=== PATIENT | male | born 1965 | race African-American/Black ===

== ENCOUNTER 2019-02-17 13:58 | Inpatient (IN) | payer OTHER ==
[2019-02-17 15:51] LABS: Protime INR 1.14
[2019-02-17 16:13] LABS: Potassium 4.1 mmol/L (3.5-5.1)
[2019-02-17 16:15] LABS: Absolute Lymphocytes (CBC) 1.2 K/uL (0.7-4.9); Absolute Neutrophil 8.4 K/uL (1.8-8.0); Basophils % 0.6 % (0-1.3); Eosinophils % 0.5 % (0-4.4); Lymphocytes % 11.6 % (15.3-44.8); MPV 9.6 fL (7.6-11.3); Monocytes % 9.3 % (3.3-12.3); RBC Red Blood Cell Count 2.57 M/uL (4.33-5.43)
[2019-02-17 16:17] LABS: Hematocrit 17.4 % (39.6-49.0)
[2019-02-17 16:22] LABS: Anisocytosis 3+; Blood Morphology Comment NOTED (NOT SEEN); Platelet Estimate ADEQ; Urine White Blood Cell Casts OK
[2019-02-17 16:23] LABS: Hypochromasia 2+; Polychromasia 2+; Rouleau NOTED
[2019-02-17] MEDS: PANTOPRAZOLE INJ 80 MG in NA CHLORIDE 0.9% 250 ML IV SCH (17:00)
[2019-02-17] MEDS ORDERED: PANTOPRAZOLE 40 MG INJ ONE (17:04)
[2019-02-17] MEDS ORDERED: NA CHLORIDE 0.9% 500 ML ONE (17:04)
--- NOTE | 2019-02-17 17:24 | P.HP ---
Certification for Inpatient Patient admitted to: Inpatient With expected LOS: >2 Midnights Patient will require the following post-hospital care: None Practitioner: I am a practitioner with admitting privileges, knowledge of patient current condition, hospital course, and medical plan of care. Services: Services provided to patient in accordance with Admission requirements found in Title 42 Section 412.3 of the Code of Federal Regulations Patient History Date of Service: 02/17/19 Primary Care Provider: Dr Alamo Reason for admission: GI bleed History of Present Illness: 53 y/o M with pmhx of HTN, Diabetes and obesity who presented to the ED with c/ o generalized Weakness for past 2 weeks. Pt states that he has also noticed dark tarry stool for past 1 week as well. Was recently seen by PCP who ordered stool occult. Stool occult is + and thus pt was asked to come to the ER for further testing and treatment. Pt denies CP, SOB, Diarrhea, N/V and abd pain. Does have h/o constipation, no Hemorrhoids however. Denies Smoking, alcohol use or drugs. No family h/o CA. No other associated symptoms and no other complains to offer In the ER was found to have hgb of 5.4 and olivia tarry stool and was thus referred over admission for further care. Hemodynamically stable. Allergies No Known Allergies Allergy (Unverified 04/19/17 18:08) Home medications list reviewed: Yes - Past Medical/Surgical History Has patient received pneumonia vaccine in the past: Yes Diabetic: Yes -: HTN -: Diabetes -: None - Family History Family History: Reviewed- Non-Contributory - Social History Smoking Status: Never smoker Counseled patient to stop smoking for: more than 10 minutes Smoking therapy provided: Yes Patient receptive to therapy: Yes Alcohol use: No CD- Drugs: No Caffeine use: No Place of Residence: Home Review of Systems 10-point ROS is otherwise unremarkable Physical Examination - Physical Exam General: Alert, In no apparent distress, Oriented x3, Obese HEENT: Atraumatic, PERRLA, Mucous membr. moist/pink, EOMI, Sclerae nonicteric Neck: Supple, 2+ carotid pulse no bruit, No LAD, Without JVD or thyroid abnormality Respiratory: Clear to auscultation bilaterally, Normal air movement Cardiovascular: Regular rate/rhythm, Normal S1 S2 Gastrointestinal: Normal bowel sounds, No tenderness Musculoskeletal: No tenderness Integumentary: No rashes Neurological: Normal gait, Normal speech, Normal strength at 5/5 x4 extr, Normal tone, Normal affect Lymphatics: No axilla or inguinal lymphadenopathy - Studies Laboratory Data (last 24 hrs) 02/17/19 16:04: WBC 10.7, Hgb 5.4 L*, Hct 17.4 L*, Plt Count 261 02/17/19 15:35: PT 13.4 H, INR 1.14 02/17/19 15:35: Sodium 140, Potassium 4.1, BUN 15, Creatinine 1.54 H, Glucose 119 H Assessment and Plan - Problems (Diagnosis) (1) GI bleeding Current Visit: Yes Status: Acute Plan: Acute blood loss anemia, most likely 2.2 to Upper GI bleeding with Melanotic stool and stool occult + -Hgb in ER 5.4 -Will transfuse 2 units PRBC -IV protonix ggt and IV fluids. -GI consulted. Awaiting Reccs -NPO for possible procedure -Will monitor in ICU closely and repeat H&H q6h Qualifiers: GI bleed type/associated pathology: melena Qualified Code(s): K92.1 - Melena (2) Diabetes Current Visit: Yes Status: Chronic Plan: ISS and Accu Check -BS on admission 274 Qualifiers: Diabetes mellitus type: type 2 Diabetes mellitus custodial insulin use: without custodial use Diabetes mellitus complication status: without complication Qualified Code(s): E11.9 - Type 2 diabetes mellitus without complications (3) HTN (hypertension) Current Visit: Yes Status: Chronic Plan: Currently Normotensive. -Will monitor closely -PRN labetolol and Hydralazine -Restart home medication once No longer NPO Qualifiers: Hypertension type: essential hypertension Qualified Code(s): I10 - Essential (primary) hypertension (4) Obesity Current Visit: Yes Status: Acute Plan: Morbid Obesity Qualifiers: Obesity type: due to excess calories Obesity classification: adult class 3 (BMI >= 40) Serious obesity comorbidity presence: with serious comorbidity Body mass index: BMI 45.0-49.9 Qualified Code(s): E66.01 - Morbid (severe) obesity due to excess calories; Z68.42 - Body mass index (BMI) 45.0-49.9, adult - Plan Admit patient To ICU for closely monitoring, HH q6h, GI consultation, Protonix ggt and IV fluids CC time spent 45 mins Discharge Plan: Home Plan to discharge in: Greater than 2 days - Advance Directives Does patient have a Living Will: No Does patient have a Durable POA for Healthcare: No - Code Status/Comfort Care Code Status Assessed: Yes Critical Care: Yes Time Spent Managing Pts Care (In Minutes): 45
[2019-02-17] MEDS ORDERED: D50W 25 GM/50 ML SYRINGE IV PRN (17:29)
[2019-02-17] MEDS ORDERED: GLUCAGON 1 MG/VIAL IM PRN (17:29)
--- NOTE | 2019-02-17 17:44 | ER ---
Nurse's Notes [facility] Name: Octavio Lay Age: 53 yrs Sex: Male : 1965 Arrival Date: 02/17/2019 Time: 14:01 Bed 13 Private MD: Diagnosis: GI Bleeding, Anemia, Obese Presentation: 02/17 14:05 Initial Sepsis Screen: Does the patient meet any 2 criteria? No. Patient's initial rb1 sepsis screen is negative. Does the patient have a suspected source of infection? No. Patient's initial sepsis screen is negative. 14:09 Presenting complaint: Patient states: Sent by PCP for HGB 4.9, HCT 17.2. Pt reports ss feeling fatigued x 1-2 weeks, and dark stool x 1 week. Transition of care: patient was not received from another setting of care. Onset of symptoms was February 17, 2019. Risk Assessment: Do you want to hurt yourself or someone else? Patient reports no desire to harm self or others. Care prior to arrival: None. 14:09 Method Of Arrival: Ambulatory ss 14:09 Acuity: CRUZITO 3 ss Historical: - Allergies: 14:13 Bactrim DS; kidney fxn; ss - Home Meds: 14:13 aspirin 81 mg Oral chew 1 tab once daily [Active]; irbesartan-hydrochlorothiazide ss 300-12.5 mg oral tab [Active]; saxagliptin-metformin oral oral once daily [Active]; carvedilol 25 mg oral tab 1 tab 2 times per day [Active]; atorvastatin 20 mg oral tab once daily [Active]; Omeprazole Oral [Active]; - PMHx: 14:13 Diabetes - NIDDM; Hypertension; ss - PSHx: 14:13 ankle sx; ss - Immunization history:: Adult Immunizations up to date. - Social history:: Smoking status: Patient/guardian denies using tobacco. - Ebola Screening: : No symptoms or risks identified at this time. Screenin:05 Abuse screen: Denies threats or abuse. Nutritional screening: No deficits noted. rb1 Tuberculosis screening: No symptoms or risk factors identified. Fall Risk None identified. Assessment: 14:05 General: Appears in no apparent distress. comfortable, obese, Behavior is calm, rb1 cooperative, Reports fatigue for Denies fever, feeling ill. Pain: Denies pain. Neuro: Level of Consciousness is awake, alert, obeys commands, Oriented to person, place, time, situation. Cardiovascular: Capillary refill < 3 seconds is brisk in bilateral fingers. Respiratory: Airway is patent Respiratory effort is even, unlabored, Respiratory pattern is regular, symmetrical. GI: Reports black stools. : No signs and/or symptoms were reported regarding the genitourinary system. Derm: Skin is dry, Skin is normal, Skin temperature is warm. 15:00 Reassessment: Patient appears in no apparent distress at this time. No changes from rb1 previously documented assessment. Family at bedside. 16:00 Reassessment: Patient appears in no apparent distress at this time. Patient and/or rb1 family updated on plan of care and expected duration. Pain level reassessed. Patient is alert, oriented x 3, equal unlabored respirations, skin warm/dry/pink. Patient denies pain at this time. 16:44 Reassessment: Called CT to inform them that the pt. finished his contrast. rb1 17:00 Reassessment: Patient appears in no apparent distress at this time. No changes from rb1 previously documented assessment. 18:00 Reassessment: Patient appears in no apparent distress at this time. Patient and/or rb1 family updated on plan of care and expected duration. Pain level reassessed. Patient is alert, oriented x 3, equal unlabored respirations, skin warm/dry/pink. Patient denies pain at this time. 18:03 Reassessment: Called report to SAUD Corona. Information from the [facility] was given. All rb1 questions asked and answered. 18:15 Reassessment: Protonix IV Drip for 0300 was taken to ICU with the pt. SAUD Corona rb1 received the medication. Vital Signs: 14:11 BP 126 / 108; Pulse 97; Resp 18; Temp 97.9; Pulse Ox 100% on R/A; Pain 0/10; ss 15:00 BP 117 / 63; Pulse 93; Resp 19; Pulse Ox 100% on R/A; Pain 0/10; rb1 16:00 BP 129 / 72; Pulse 90; Resp 18; Pulse Ox 100% on R/A; rb1 17:00 BP 132 / 83; Pulse 93; Resp 17; Pulse Ox 100% ; Pain 0/10; rb1 17:54 BP 119 / 97; Pulse 92; Resp 20; Pulse Ox 100% on R/A; Pain 0/10; rb1 ED Course: 14:01 Patient arrived in ED. as 14:05 Patient has correct armband on for positive identification. Bed in low position. Call rb1 light in reach. Side rails up X 1. Pulse ox on. NIBP on. 14:07 Ignacio Ramirez MD is Attending Physician. kdr 14:11 Triage completed. ss 14:13 Arm band placed on. ss 14:44 Rocio Turner, SAUD is Primary Nurse. rb1 15:10 Missed attempt(s): 20 gauge in right forearm. rb1 15:35 Initial lab(s) drawn, by fl, sent to lab. T\T\S collected, blood band applied to patient. ph Inserted saline lock: 20 gauge in left wrist, using aseptic technique. Blood collected. 16:41 Oral contrast given. jg6 16:45 Oral contrast reported to be complete. vm2 17:42 Lynda Gallardo MD is Hospitalizing Provider. kdr 18:01 Inserted saline lock: 22 gauge in right hand, using aseptic technique. ph 18:15 No provider procedures requiring assistance completed. Patient admitted, IV remains in rb1 place. 18:34 Radiology exam delayed due to attempted to get patient for CT exam and pt was taken vm2 upstairs to ICU. Administered Medications: 16:55 Drug: ProTONIX 40 mg Route: IVP; Site: left wrist; rb1 17:10 Follow up: Response: No adverse reaction rb1 16:55 Drug: NS 0.9% 500 ml Route: IV; Rate: bolus; Site: left wrist; rb1 17:53 Follow up: IV Status: Completed infusion rb1 17:53 Drug: ProTONIX 8 mg/hr Route: IV; Rate: 25 ml/hr; Site: left wrist; rb1 18:15 Follow up: Response: No adverse reaction; IV Status: Infusion continued upon admission rb1 Outcome: 17:43 Decision to Hospitalize by Provider. kdr 18:15 Patient left the ED. rb1 18:15 Admitted to ICU accompanied by nurse, accompanied by tech, family with patient, via rb1 stretcher, room 7, on monitor, with chart, Report called to SAUD Corona 18:15 Condition: stable 18:15 Instructed on the need for admit. Signatures: Ignacio Ramirez MD MD kdr Laura Cortez Shelby, RN RN Evie Vargas RN RN Rocio Turner RN RN rb1 Coby Winn 2 Carina Mancera jg6 Corrections: (The following items were deleted from the chart) 17:02 17:01 Oral contrast reported to be complete. vm2 vm2 18:34 18:27 Patient moved to [place] via wheelchair. vm2 vm2 18:45 18:43 Patient left the ED. rb1 rb1
--- NOTE | 2019-02-17 17:44 | EDPHYS ---
Physician Documentation [facility] Name: Octavio Lay Age: 53 yrs Sex: Male : 1965 Arrival Date: 02/17/2019 Time: 14:01 Bed 13 Private MD: ED Physician Ignacio Ramirez HPI: 02/17 16:54 This 53 yrs old Black Male presents to ER via Ambulatory with complaints of Abnormal kdr Lab Results. 16:54 The p[at. kdr Historical: - Allergies: 14:13 Bactrim DS; kidney fxn; ss - Home Meds: 14:13 aspirin 81 mg Oral chew 1 tab once daily [Active]; irbesartan-hydrochlorothiazide ss 300-12.5 mg oral tab [Active]; saxagliptin-metformin oral oral once daily [Active]; carvedilol 25 mg oral tab 1 tab 2 times per day [Active]; atorvastatin 20 mg oral tab once daily [Active]; Omeprazole Oral [Active]; - PMHx: 14:13 Diabetes - NIDDM; Hypertension; ss - PSHx: 14:13 ankle sx; ss - Immunization history:: Adult Immunizations up to date. - Social history:: Smoking status: Patient/guardian denies using tobacco. - Ebola Screening: : No symptoms or risks identified at this time. ROS: 17:39 Constitutional: Negative for fever, chills, and weight loss, Eyes: Negative for injury, kdr pain, redness, and discharge, Neck: Negative for injury, pain, and swelling, Cardiovascular: Negative for chest pain, palpitations, and edema, Respiratory: Negative for shortness of breath, cough, wheezing, and pleuritic chest pain, Abdomen/GI: Negative for abdominal pain, nausea, vomiting, diarrhea, and constipation, Back: Negative for injury and pain, : Negative for injury, bleeding, discharge, and swelling, MS/Extremity: Negative for injury and deformity, Skin: Negative for injury, rash, and discoloration, Neuro: Negative for headache, weakness, numbness, tingling, and seizure activity. Psych: Negative for depression, anxiety, suicide ideation, homicidal ideation, and hallucinations, Allergy/Immunology: Negative for hives, rash, and allergies, Endocrine: Negative for neck swelling, polydipsia, polyuria, polyphagia, and marked weight changes, Hematologic/Lymphatic: Negative for swollen nodes, abnormal bleeding, and unusual bruising. 17:39 Abdomen/GI: Positive for nausea, constipation, black/tarry stool, Negative for abdominal pain, nausea and vomiting, nausea, vomiting, and diarrhea, nausea, vomiting, diarrhea, abdominal cramps, abdominal distension, anorexia, dysphagia, rectal pain, rectal bleeding, bowel incontinence. Exam: 17:39 Constitutional: This is a well developed, well nourished patient who is awake, alert, kdr and in no acute distress. Head/Face: Normocephalic, atraumatic. Eyes: Pupils equal round and reactive to light, extra-ocular motions intact. Lids and lashes normal. Conjunctiva and sclera are non-icteric and not injected. Cornea within normal limits. Periorbital areas with no swelling, redness, or edema. Neck: Trachea midline, no thyromegaly or masses palpated, and no cervical lymphadenopathy. Supple, full range of motion without nuchal rigidity, or vertebral point tenderness. No Meningismus. Chest/axilla: Normal chest wall appearance and motion. Nontender with no deformity. No lesions are appreciated. Cardiovascular: Regular rate and rhythm with a normal S1 and S2. No gallops, murmurs, or rubs. Normal PMI, no JVD. No pulse deficits. Respiratory: Lungs have equal breath sounds bilaterally, clear to auscultation and percussion. No rales, rhonchi or wheezes noted. No increased work of breathing, no retractions or nasal flaring. Back: No spinal tenderness. No costovertebral tenderness. Full range of motion. Skin: Warm, dry with normal turgor. Normal color with no rashes, no lesions, and no evidence of cellulitis. MS/ Extremity: Pulses equal, no cyanosis. Neurovascular intact. Full, normal range of motion. Neuro: Awake and alert, GCS 15, oriented to person, place, time, and situation. Cranial nerves II-XII grossly intact. Motor strength 5/5 in all extremities. Sensory grossly intact. Cerebellar exam normal. Normal gait. Psych: Awake, alert, with orientation to person, place and time. Behavior, mood, and affect are within normal limits. 17:39 Abdomen/GI: Inspection: obese Bowel sounds: active, Palpation: soft, nontender, rebound tenderness, is not appreciated, voluntary guarding, is not appreciated, involuntary guarding, is not appreciated. Vital Signs: 14:11 BP 126 / 108; Pulse 97; Resp 18; Temp 97.9; Pulse Ox 100% on R/A; Pain 0/10; ss 15:00 BP 117 / 63; Pulse 93; Resp 19; Pulse Ox 100% on R/A; Pain 0/10; rb1 16:00 BP 129 / 72; Pulse 90; Resp 18; Pulse Ox 100% on R/A; rb1 17:00 BP 132 / 83; Pulse 93; Resp 17; Pulse Ox 100% ; Pain 0/10; rb1 17:54 BP 119 / 97; Pulse 92; Resp 20; Pulse Ox 100% on R/A; Pain 0/10; rb1 MDM: 16:31 Physician consultation: Cristino Pepper MD was called at 16:30, was contacted at 16:30, [facility] regarding consult, patient's condition, and will see patient in inpatient room. 17:39 Data reviewed: vital signs, nurses notes, lab test result(s), radiologic studies. kdr Counseling: I had a detailed discussion with the patient and/or guardian regarding: the historical points, exam findings, and any diagnostic results supporting the discharge/admit diagnosis, lab results, radiology results, the need for further work-up and treatment in the hospital. 17:43 Patient medically screened. [facility] 02/17 14:23 Order name: CBC with Diff [facility] 02/17 14:23 Order name: Chem 7; Complete Time: 16:26 [facility] 02/17 14:23 Order name: PT-INR; Complete Time: 16:26 [facility] 02/17 14:23 Order name: Type And Screen; Complete Time: 16:34 [facility] 02/17 14:23 Order name: CBC with Automated Diff; Complete Time: 16:26 [facility] 02/17 16:17 Order name: CBC Smear Scan; Complete Time: 16:26 [facility] 02/17 16:30 Order name: CT Abd/Pelvis - W/Contrast [facility] 02/17 16:32 Order name: ABO/RH no charge; Complete Time: 16:34 [facility] 02/17 17:02 Order name: CONS Physician Consult [facility] 02/17 17:02 Order name: NPO EDMS Administered Medications: 16:55 Drug: ProTONIX 40 mg Route: IVP; Site: left wrist; rb1 17:10 Follow up: Response: No adverse reaction rb1 16:55 Drug: NS 0.9% 500 ml Route: IV; Rate: bolus; Site: left wrist; rb1 17:53 Follow up: IV Status: Completed infusion rb1 17:53 Drug: ProTONIX 8 mg/hr Route: IV; Rate: 25 ml/hr; Site: left wrist; rb1 18:15 Follow up: Response: No adverse reaction; IV Status: Infusion continued upon admission rb1 Disposition: 02/17/19 17:43 Hospitalization ordered by Lynda aGllardo for Observation. Preliminary diagnosis is GI Bleeding, Anemia, Obese. - Bed requested for Intensive Care Unit. - Status is Observation. rb1 - Condition is Fair. - Problem is new. - Symptoms are unchanged. UTI on Admission? No Signatures: Dispatcher [employer] EDMS Ignacio Ramirez MD MD kdr Katherine Peoples RN RN ss Rocio Turner RN RN rb1 Tavia Delgado Corrections: (The following items were deleted from the chart) 17:45 17:43 Hospitalization Ordered by Lynda Gallardo MD for Observation. Preliminary eb diagnosis is GI Bleeding, Anemia, Obese. Bed requested for Telemetry/MedSurg (observation). Status is Observation. Condition is Fair. Problem is new. Symptoms are unchanged. UTI on Admission? No. kdr 18:43 17:45 02/17/2019 17:43 Hospitalization Ordered by Lynda Gallardo MD for Observation. rb1 Preliminary diagnosis is GI Bleeding, Anemia, Obese. Bed requested for Intensive Care Unit. Status is Observation. Condition is Fair. Problem is new. Symptoms are unchanged. UTI on Admission? No. eb
[2019-02-17] MEDS ORDERED: ONDANSETRON 4 MG/2 ML VIAL IV PRN (18:51)
--- NOTE | 2019-02-17 19:21 | RAD REPORT ---
EXAM DESCRIPTION: CT - Abdomen Pelvis Wo Contrast - 02/17/2019 6:49 pm CLINICAL HISTORY: He had been, abdominal pain COMPARISON: None. TECHNIQUE: Axial [address] imaging of the abdomen and pelvis was performed without IV contrast. No IV contrast was given because of allergy, abnormal renal function, patient refusal or physician re quest. Oral contrast was given. All CT scans are performed using dose optimization technique as appropriate and may include automated exposure control or mA/KV adjustment according to patient size. FINDINGS: No suspicious findings in the lung bases. The liver, spleen and pancreas show no suspicious findings on non-contrast imaging. Gallbladder is co ntracted. No biliary tree dilatation. Gallstones can be occult. No hydronephrosis or suspicious renal mass. No significant adrenal finding. Isodense renal masses an d pyelonephritis cannot be excluded in the absence of IV contrast. The urinary bladder is without sig nificant finding. No prostate gland or seminal vesicle abnormality. No gastric dilatation seen. In the body is stomach there is a 6 centimeter oval homogeneous mass. Att enuation value is approximately 6 Hounsfield units. No associated calcification or fat component. No gross wall thickening of the stomach. The mass is too homogeneous to represent a bezoar. No enhanceme nt characteristics can't be established on a noncontrast study. Evaluation of both benign and maligna nt masses of the stomach is limited in the absence of IV contrast. The homogeneous fluid attenuation raises the possibility that this is an [employer] gastric balloon weight loss device. This would need cor relation with patient history. No gastric wall pneumatosis. No stranding or edema in the perigastric fat. No dilated small bowel or focal small bowel finding. Oral contrast has reached the mid transvers e colon. No colon wall thickening or large mass lesion identifiable. In the left-side of the transver se colon there is a small 10 mm mass that could be adherent stool or a polyp. This is relatively smal l and unlikely to be a source for a GI bleed. Patient has little if any diverticulosis and no colitis /diverticulitis findings are seen. No free air, free fluid or inflammatory stranding. No mass or bulky lymphadenopathy otherwise noted. No hernia seen. Disc and bony degenerative changes are present. No acute bone finding identifiable. IMPRESSION: No acute large or small bowel abnormality identified. There is a 10 mm polypoid mass in the left-side transverse colon that could be a polyp or adherent stool. No definitive finding as a so urce for GI bleed. There is a 6 centimeter homogeneous low-density mass in the body of the stomach. The adjacent gastric wells are not abnormally thickened. No stranding or edema in the adjacent fat. No CT findings for si gnificant gastric ulceration. The 6 centimeter mass is too homogeneous to represent a bezoar. Assessment of possible benign or yoseph gnant masses is limited in the absence of IV contrast. This may need endoscopic evaluation for defini tive evaluation. The homogeneous fluid or low-attenuation (6 Hounsfield units) raises the possibility that this is an [employer] gastric balloon weight loss device. This possibility could be easily excluded with patient history. Full assessment is limited is the absence of IV contrast.
[2019-02-17] MEDS ORDERED: NA CHLORIDE 0.9% 100 ML ONE (21:16)
[2019-02-17] MEDS: NA CHLORIDE 0.9% 1,000 ML IV SCH (22:50)
[2019-02-18] MEDS ORDERED: NA CHLORIDE 0.9% 100 ML ONE (00:29)
[2019-02-18] MEDS: PANTOPRAZOLE INJ 80 MG in NA CHLORIDE 0.9% 250 ML IV SCH ×4 (02:59→23:43)
[2019-02-18] MEDS: NA CHLORIDE 0.9% 1,000 ML IV SCH ×3 (02:59→23:44)
[2019-02-18 06:04] LABS: Absolute Lymphocytes (CBC) 1.6 K/uL (0.7-4.9); Absolute Monocytes 0.9 K/uL (0.1-1.3); Basophils % 0.7 % (0-1.3); Eosinophils % 0.8 % (0-4.4); Hematocrit 22.2 % (39.6-49.0); Lymphocytes % 18.1 % (15.3-44.8); MPV 10.1 fL (7.6-11.3); Monocytes % 10.4 % (3.3-12.3); RBC Red Blood Cell Count 3.06 M/uL (4.33-5.43)
[2019-02-18 06:26] LABS: Albumin 3.3 g/dL (3.4-5.0); Bilirubin Total 1.1 mg/dL (0.2-1.0); Ferritin 3.5 ng/mL (26-388); Magnesium 2.3 mg/dL (1.8-2.4); Phosphorus 3.4 mg/dL (2.5-4.9); Potassium 4.1 mmol/L (3.5-5.1); Protein, Total 6.5 g/dL (6.4-8.2)
[2019-02-18 06:32] LABS: Protime INR 1.11
[2019-02-18] MEDS ORDERED: NA CHLORIDE 0.9% 250 ML ONE ×2 (08:18→20:49)
[2019-02-18] MEDS ORDERED: NA CHLORIDE 0.9% 1,000 ML ONE (13:19)
--- NOTE | 2019-02-18 13:42 | P.PN ---
Subjective Date of Service: 02/18/19 Primary Care Provider: Dr Alamo Chief Complaint: GI bleed Subjective: Improving, NPO, Doing well, Other (Denies SOB, CP, Hematemesis. Had a melanotic Stool last night.) Review of Systems 10-point ROS is otherwise unremarkable Physical Examination - Vital Signs Temperature: 98.3 F Blood Pressure: 129/64 Pulse: 94 Respirations: 18 Pulse Ox (%): 100 - Physical Exam General: Alert, In no apparent distress HEENT: Atraumatic, PERRLA, EOMI Neck: Supple, JVD not distended Respiratory: Clear to auscultation bilaterally, Normal air movement Cardiovascular: Regular rate/rhythm, Normal S1 S2 Gastrointestinal: Normal bowel sounds, No tenderness Musculoskeletal: No tenderness Integumentary: No rashes Neurological: Normal speech, Normal tone, Normal affect Lymphatics: No axilla or inguinal lymphadenopathy - Studies Laboratory Data (last 24 hrs) 02/17/19 16:04: WBC 10.7, Hgb 5.4 L*, Hct 17.4 L*, Plt Count 261 02/17/19 15:35: PT 13.4 H, INR 1.14 02/17/19 15:35: Sodium 140, Potassium 4.1, BUN 15, Creatinine 1.54 H, Glucose 119 H Medications List Reviewed: Yes Assessment And Plan - Current Problems (Diagnosis) (1) GI bleeding Current Visit: Yes Status: Acute Plan: Acute blood loss anemia, most likely 2.2 to Upper GI bleeding with Melanotic stool and stool occult + -Hgb in ER 5.4. S/p 2 units PRBC. Hgb Improved -ABD CT with Stomach polyp and colon polyp -IV protonix ggt and IV fluids. -GI consulted. Reccs appreciated -EGD today -NPO for possible procedure -Will monitor in ICU closely and repeat H&H q6h Qualifiers: GI bleed type/associated pathology: melena Qualified Code(s): K92.1 - Melena (2) Diabetes Current Visit: Yes Status: Chronic Plan: ISS and Accu Check -BS on admission 274, better now Qualifiers: Diabetes mellitus type: type 2 Diabetes mellitus chcf insulin use: without chcf use Diabetes mellitus complication status: without complication Qualified Code(s): E11.9 - Type 2 diabetes mellitus without complications (3) HTN (hypertension) Current Visit: Yes Status: Chronic Plan: Currently Normotensive. -Will monitor closely -PRN labetolol and Hydralazine -Restart home medication once No longer NPO Qualifiers: Hypertension type: essential hypertension Qualified Code(s): I10 - Essential (primary) hypertension (4) Obesity Current Visit: Yes Status: Acute Plan: Morbid Obesity Qualifiers: Obesity type: due to excess calories Obesity classification: adult class 3 (BMI >= 40) Serious obesity comorbidity presence: with serious comorbidity Body mass index: BMI 45.0-49.9 Qualified Code(s): E66.01 - Morbid (severe) obesity due to excess calories; Z68.42 - Body mass index (BMI) 45.0-49.9, adult - Plan continue to monitor in the ICU, HH q6h, GI consultation, Protonix ggt and IV fluids CC time spent 30 mins Discharge Plan: Home Plan to discharge in: Greater than 2 days - Code Status/Comfort Care Code Status Assessed: Yes Critical Care: No
[2019-02-18] MEDS ORDERED: LIDOCAINE 1% MPF 5 ML VIAL ONE (14:23)
[2019-02-18] MEDS ORDERED: PROPOFOL 200 MG/20 ML VIAL IV ONE (14:23)
[2019-02-18 15:29] LABS: Hematocrit 24.9 % (39.6-49.0)
[2019-02-18] MEDS ORDERED: GOLYTELY 4000 ML PO SCH (17:00)
[2019-02-18] MEDS: METOCLOPRAMIDE 10 MG/2mL INJ IV SCH ×2 (17:56→23:15)
--- NOTE | 2019-02-18 21:03 | ENDO RPT ---
[address], [address] EGD PROCEDURE REPORT EXAM DATE: 02/18/2019 PATIENT NAME: Octavio Lay MR#: [id number] BIRTHDATE: 1965 ATTENDING: Cristino Pepper Dr STATUS: inpatient - [facility] CTRS: Suly Witt and Verona Yee RN INDICATIONS: The patient is a 53 yr old Male here for an EGD due to melenic bleeding and iron deficiency anemia, hgb 5.4, MCV 68, ferritin 3.5 PROCEDURE PERFORMED: EGD with biopsy MEDICATIONS: Per Anesthesia. TOPICAL ANESTHETIC: none CONSENT: The patient understands the risks and benefits of the procedure and understands that these risks include, but are not limited to: sedation, allergic reaction, infection, perforation and/or bleeding. Alternative means of evaluation and treatment include, among others: physical exam, x-rays, and/or surgical intervention. The patient elects to proceed with this endoscopic procedure. DESCRIPTION OF PROCEDURE: During intra-op preparation period all mechanical medical equipment was checked for proper function. Hand hygiene and appropriate measures for infection prevention was taken. Procedure, possible complications, and alternatives including but not limited to the possibility of bleeding, perforation, tear, infection, sepsis, need for surgery, need for blood transfusion, and anesthesia related complications were explained to the patient. After the risks, benefits and alternatives of the procedure were thoroughly explained, Informed consent was verified, confirmed and timeout was successfully executed by the treatment team. The patient was placed in the left lateral position. The patient was anesthetized with topical anesthesia. Through the anesthetized oropharyngeal area, the scope was passed without any difficulty. The [id number] ([id number]) endoscope was introduced through the mouth and advanced to the third portion of the duodenum. Retroflexed views revealed no abnormalities. The gastroscope was then slowly withdrawn and removed. LA class B esophagitis was found in the lower esophagus. A nodule was found in the gastroesophageal junction. A pedunculated polyp was found in the body of the stomach. A sessile polyp was found in the body of the stomach. With jumbo forceps, a biopsy was obtained and sent to pathology. Mild gastritis was found in the antrum. Multiple biopsies were obtained and sent to pathology. ADVERSE EVENTS: There were no complications. IMPRESSIONS: 1. LA class B esophagitis in the lower esophagus 2. 4 mm friable inflammatory appearing polyp/nodule in the gastroesophageal junction 3. 4 cm massive pedunculated polyp with broad base with 7 mm sessile polyp on top in the body of the stomach 4. 8 mm sessile polyp with two small 2 mm ulcerations in the body of the stomach, s/p biopsy 5. Mild gastritis in the antrum, s/p biopsies RECOMMENDATIONS: 1. await biopsy results 2. acid suppression therapy 3. CT scan 4. colonoscopy REPEAT EXAM: Return in 1 day(s) for Colonoscopy. Cristino Pepper Dr eSigned: Cristino Pepper Dr 02/18/2019 3:08 PM cc: CPT CODES: ICD9 CODES: PATIENT NAME: Octavio Lay MR#: [id number]
[2019-02-19] MEDS: METOCLOPRAMIDE 10 MG/2mL INJ IV SCH (05:00)
[2019-02-19] MEDS ORDERED: SIMETHICONE 40 MG/ 0.6 ML ONE (07:27)
[2019-02-19 07:32] LABS: Absolute Lymphocytes (CBC) 1.2 K/uL (0.7-4.9); Absolute Monocytes 1.1 K/uL (0.1-1.3); Basophils % 0.6 % (0-1.3); Eosinophils % 1.5 % (0-4.4); Hematocrit 26.6 % (39.6-49.0); Lymphocytes % 12.8 % (15.3-44.8); MPV 9.2 fL (7.6-11.3); Monocytes % 11.5 % (3.3-12.3); RBC Red Blood Cell Count 3.58 M/uL (4.33-5.43)
[2019-02-19 07:45] LABS: Albumin 3.1 g/dL (3.4-5.0); Bilirubin Total 0.7 mg/dL (0.2-1.0); Magnesium 2.2 mg/dL (1.8-2.4); Phosphorus 3.2 mg/dL (2.5-4.9); Potassium 3.8 mmol/L (3.5-5.1); Protein, Total 6.3 g/dL (6.4-8.2)
[2019-02-19] MEDS ORDERED: LIDOCAINE 1% MPF 5 ML VIAL ONE (08:05)
[2019-02-19] MEDS ORDERED: PROPOFOL 200 MG/20 ML VIAL IV ONE (08:05)
[2019-02-19] MEDS ORDERED: GLYCOPYRROLATE 0.2 MG/ML SYR ONE (08:19)
--- NOTE | 2019-02-19 08:50 | ENDO RPT ---
[address], [address] COLONOSCOPY PROCEDURE REPORT EXAM DATE: 02/19/2019 PATIENT NAME: Octavio Lay MR #: [id number] BIRTHDATE: 1965 ATTENDING: Cristino Pepper Dr STATUS: inpatient - 7 [employer] ASSEM[employer]ER: Janice Bradshaw RN and Naif Avelar [facility] INDICATIONS: The patient is a 53 yr old Male here for a colonoscopy due to iron deficiency anemia and melenic bleeding PROCEDURE PERFORMED: Colonoscopy MEDICATIONS: Per Anesthesia. ESTIMATED BLOOD LOSS: None CONSENT: The patient understands the risks and benefits of the procedure and understands that these risks include, but are not limited to: sedation, allergic reaction, infection, perforation and/or bleeding. Alternative means of evaluation and treatment include, among others: physical exam, x-rays, and/or surgical intervention. The patient elects to proceed with this endoscopic procedure. DESCRIPTION OF PROCEDURE: During intra-op preparation period all mechanical medical equipment was checked for proper function. Hand hygiene and appropriate measures for infection prevention was taken. Procedure, possible complications, alternatives including, but not limited to possibility of bleeding, perforation, tear, infection, sepsis, need for surgery, need for blood transfusion, were explained to the patient. After the risks, benefits and alternatives of the procedure were thoroughly explained, Informed consent was verified, confirmed and timeout was successfully executed by the treatment team. The patient was placed in the left lateral position. A digital rectal exam was performed and revealed no abnormalities of the rectum. After appropriate level of anesthesia, the scope was passed. The [id number] ([id number]) endoscope was introduced through the anus and advanced to the terminal ileum which was intubated for a short distance. The quality of the prep was fair. The instrument was then slowly withdrawn as the colon was fully examined. Scope withdrawal time was 9 minutes. COLON FINDINGS: Thick dark heme mucus covering the cecum and proximal ascending colon (none in the terminal ileum to 7 cm insertion). No lesions identified for cause of dark heme though extensive washing of mucosal surface and no active bleeding noted. Two sessile polyps ranging between 3-5mm in size were found in the sigmoid colon. Small internal hemorrhoids were found. Retroflexed views revealed no abnormalities. The scope was then completely withdrawn from the patient and the procedure terminated. ADVERSE EVENTS: There were no complications. IMPRESSIONS: 1. Thick dark heme mucus covering the cecum and proximal ascending colon (none in the terminal ileum to 7 cm insertion). No lesions identified for cause of dark heme though extensive washing of mucosal surface and no active bleeding noted. 2. Two sessile polyps ranging between 3-5mm in size in the sigmoid colon (not removed in setting of acute GI bleeding) 3. Small internal hemorrhoids 4. Intubation to terminal ileum RECOMMENDATIONS: 1. Small Bowel Follow Through 2. pillcam / capsule endoscopy RECALL: Return in 1 week(s) for Colonoscopy (next week, today Thursday). Cristino Pepper Dr eSigned: Cristino Pepper Dr 02/19/2019 8:50 AM cc: CPT CODES: ICD9 CODES: 211.3 Benign neoplasm of colon PATIENT NAME: Octavio Lay MR#: [id number]
[2019-02-19] MEDS: PANTOPRAZOLE INJ 80 MG in NA CHLORIDE 0.9% 250 ML IV SCH (09:00)
[2019-02-19] MEDS: NA CHLORIDE 0.9% 1,000 ML IV SCH (09:01)
[2019-02-19] MEDS ORDERED: SODIUM CHLORIDE 0.9% 10ML INJ IV PRN (10:59)
[2019-02-19] MEDS ORDERED: POTASSIUM 25 MEQ EFFERV TAB PO ONE (12:00)
--- NOTE | 2019-02-19 12:33 | P.PN ---
Subjective Date of Service: 02/19/19 Primary Care Provider: Dr Alamo Chief Complaint: GI bleed Pt seen and examined at bedside. Chart Reviewed. Case DW with GI. Currently pt is pending NM scan as SBS was done first. Hgb is 8.8. No further melena or hemtemesis noted. Denies SOB, CP or dizziness Review of Systems 10-point ROS is otherwise unremarkable Physical Examination - Vital Signs Temperature: 97.1 F Blood Pressure: 117/67 Pulse: 97 Respirations: 20 Pulse Ox (%): 99 - Physical Exam General: Alert, In no apparent distress HEENT: Atraumatic, PERRLA, EOMI Neck: Supple, JVD not distended Respiratory: Clear to auscultation bilaterally, Normal air movement Cardiovascular: Regular rate/rhythm, Normal S1 S2 Gastrointestinal: Normal bowel sounds, No tenderness Musculoskeletal: No tenderness Integumentary: No rashes Neurological: Normal speech, Normal tone, Normal affect Lymphatics: No axilla or inguinal lymphadenopathy - Studies Medications List Reviewed: Yes Assessment And Plan - Current Problems (Diagnosis) (1) GI bleeding Current Visit: Yes Status: Acute Plan: Acute blood loss anemia, most likely 2.2 to Upper GI bleeding with Melanotic stool and stool occult + -Hgb in ER 5.4. S/p 2 units PRBC. Hgb Improved to 8.8 -ABD CT with Stomach polyp and colon polyp, EGD and Colonoscopy with Polyp as well. Mostly sessile -IV protonix bid and IV fluids. -GI consulted. Reccs appreciated -Done with SBS and awaiting NM scan Qualifiers: GI bleed type/associated pathology: melena Qualified Code(s): K92.1 - Melena (2) Diabetes Current Visit: Yes Status: Chronic Plan: ISS and Accu Check -BS on admission 274, better now Qualifiers: Diabetes mellitus type: type 2 Diabetes mellitus care home insulin use: without care home use Diabetes mellitus complication status: without complication Qualified Code(s): E11.9 - Type 2 diabetes mellitus without complications (3) HTN (hypertension) Current Visit: Yes Status: Chronic Plan: Currently Normotensive. -Will monitor closely -PRN labetolol and Hydralazine -Restarted on HOme medication Qualifiers: Hypertension type: essential hypertension Qualified Code(s): I10 - Essential (primary) hypertension (4) Obesity Current Visit: Yes Status: Acute Plan: Morbid Obesity Qualifiers: Obesity type: due to excess calories Obesity classification: adult class 3 (BMI >= 40) Serious obesity comorbidity presence: with serious comorbidity Body mass index: BMI 45.0-49.9 Qualified Code(s): E66.01 - Morbid (severe) obesity due to excess calories; Z68.42 - Body mass index (BMI) 45.0-49.9, adult - Plan continue to monitor, HH, GI consultation, Protonix BID and IV fluids. Await NM for DC Discharge Plan: Home Plan to discharge in: 24 Hours - Code Status/Comfort Care Code Status Assessed: Yes Critical Care: No
--- NOTE | 2019-02-19 13:23 | RAD REPORT ---
EXAM DESCRIPTION: RAD - Small Bowel Series - 02/19/2019 11:23 am CLINICAL HISTORY: occult GI bleeding Abdominal pain COMPARISON: Abdomen Pelvis Wo Contrast dated 02/17/2019 FINDINGS: Flake Or Shred Roll Operator film shows a nonspecific bowel gas pattern. No obstruction or free air. No suspiciou s calcifications. Gastric size and mucosal fold pattern are normal. No delay in transit of contrast into the small jack l. Small bowel is normal in diameter with no mucosal fold thickening. No intrinsic or extrinsic mass identifiable. Terminal ileum has normal appearance. Transit time to the colon is normal. No fluoroscopy was performed. Total images acquired: 10 IMPRESSION: Normal small bowel series.
[2019-02-19] MEDS ORDERED: ATORVASTATIN 20 MG TAB PO SCH (21:00)
[2019-02-19] MEDS ORDERED: HOME MED 1 EA UNK (Omeprazole [Prilosec] 20 MG) PO SCH (21:00)
[2019-02-19] MEDS: CARVEDILOL 25 MG TAB PO SCH (21:32)
[2019-02-19] MEDS: PANTOPRAZOLE 40 MG INJ IVP SCH (21:32)
[2019-02-19] MEDS ORDERED: HYDROMORPHONE HCL 1 MG/ML INJ IV PRN (22:21)
[2019-02-19] MEDS ORDERED: METRONIDAZOLE 500mg IVPB 500 MG/100 ML BAG IV ONE (22:26)
[2019-02-20] MEDS ORDERED: HYDROMORPHONE HCL 1 MG/ML INJ IV PRN (00:07)
[2019-02-20] MEDS: HYDROCODONE/APAP 10/325 TAB PO PRN ×2 (00:50→09:21)
[2019-02-20 05:59] LABS: Absolute Lymphocytes (CBC) 1.2 K/uL (0.7-4.9); Absolute Monocytes 1.1 K/uL (0.1-1.3); Absolute Neutrophil 6.8 K/uL (1.8-8.0); Basophils % 0.6 % (0-1.3); Eosinophils % 2.4 % (0-4.4); Hematocrit 25.8 % (39.6-49.0); MPV 9.4 fL (7.6-11.3); RBC Red Blood Cell Count 3.47 M/uL (4.33-5.43)
[2019-02-20 06:17] LABS: Bilirubin Total 0.6 mg/dL (0.2-1.0); Magnesium 2.3 mg/dL (1.8-2.4); Phosphorus 3.8 mg/dL (2.5-4.9); Protein, Total 6.1 g/dL (6.4-8.2)
[2019-02-20] MEDS: PANTOPRAZOLE 40 MG INJ IVP SCH (08:28)
[2019-02-20] MEDS: CARVEDILOL 25 MG TAB PO SCH (08:28)
--- NOTE | 2019-02-20 08:37 | RAD REPORT ---
EXAM DESCRIPTION: NM - Bowel Imaging [facility] - 02/20/2019 8:14 am CLINICAL HISTORY: Occult GI bleed COMPARISON: Small bowel examination February 19, CT study February 17 TECHNIQUE: The patient was administered 10.4 millicuries Tc 99 m pertechnetate. Dynamic imaging was performed over 1 minute. Imaging continued for 1 hour with static images obtained every 2 minutes. FINDINGS: Normal physiologic activity is seen in the stomach. There is normal physiologic accumulati on of the radiopharmaceutical in the urinary bladder. No abnormal activity is seen that would indicate a Meckel's diverticulum or other focus of ectopic ga stric mucosa. IMPRESSION: Normal Meckel's scan.
[2019-02-20] MEDS ORDERED: hydroCHLOROthiazide 12.5 MG CAP PO SCH (09:00)
[2019-02-20] MEDS ORDERED: AMOX/K CLAV 875 MG TAB PO SCH (09:00)
[2019-02-20] MEDS ORDERED: VITAMIN D 1000 UNIT TAB PO SCH (09:00)
[2019-02-20] MEDS ORDERED: HOME MED 1 EA UNK (Irbesartan/Hydrochlorothiazide [Avalide 300-12.5 Mg Tablet] 1 EACH) PO SCH (09:00)
[2019-02-20] MEDS ORDERED: IRBESARTAN 150 MG TAB PO SCH (09:00)
--- NOTE | 2019-02-20 10:58 | P.PN ---
Subjective Date of Service: 02/20/19 Primary Care Provider: Dr Alamo Chief Complaint: GI bleed / melena Subjective: Improving (No blood seen. He feels better and wants to go home. Small bowel series and Meckel's scan were negative. EGD revealed a 4 cm pedunculated polyp / mass in the body of the stomach, and ~ 8 mm sessile polyp with ulcerations in the body and a 4 mm inflammatory appearing nodule at the GE junction. Colonoscopy revealed thick dark heme sticky- adherent mucus in the cecum & proximal ascending colon and internal hemorrhoids.) Review of Systems 10-point ROS is otherwise unremarkable General: Weakness (Improved. ) Physical Examination - Vital Signs Temperature: 97.6 F Blood Pressure: 158/89 Pulse: 78 Respirations: 16 Pulse Ox (%): 98 - Physical Exam General: Alert, In no apparent distress, Oriented x3, Cooperative HEENT: Atraumatic, Normocephalic, PERRLA, EOMI Neck: Supple Respiratory: Normal air movement Cardiovascular: Normal pulses Gastrointestinal: Soft and benign (obese), No tenderness, No rebound, No guarding Neurological: Normal speech, Normal strength at 5/5 x4 extr - Studies Medications List Reviewed: Yes Assessment And Plan - Current Problems (Diagnosis) (1) Melena Current Visit: Yes Status: Acute (2) Anemia, iron deficiency Current Visit: Yes Status: Acute (3) Obesity Current Visit: Yes Status: Acute Qualifiers: Obesity type: due to excess calories Obesity classification: adult class 3 (BMI >= 40) Serious obesity comorbidity presence: with serious comorbidity Body mass index: BMI 45.0-49.9 Qualified Code(s): E66.01 - Morbid (severe) obesity due to excess calories; Z68.42 - Body mass index (BMI) 45.0-49.9, adult (4) Diabetes Current Visit: Yes Status: Chronic Qualifiers: Diabetes mellitus type: type 2 Diabetes mellitus remote computer terminal operator insulin use: without remote computer terminal operator use Diabetes mellitus complication status: without complication Qualified Code(s): E11.9 - Type 2 diabetes mellitus without complications (5) HTN (hypertension) Current Visit: Yes Status: Chronic Qualifiers: Hypertension type: essential hypertension Qualified Code(s): I10 - Essential (primary) hypertension - Plan REC: 1) outpatient evaluation of 4 cm massive pedunculated polyp in body of stomach at tertiary center 2) outpatient pillcam 3) repeat colonoscopy in 1-2 weeks 4) monitor labs 5) iron & Vitamin C therapy 6) check U/A
--- NOTE | 2019-02-20 11:32 | P.DS ---
Admission Date: 02/17/19 Discharge Date: 02/20/19 Primary Care Provider: Dr Alamo Disposition: ROUTINE DISCHARGE Discharge Condition: GOOD Reason for Admission: GI bleed / melena Consultations: GI Procedures: EGD and colonoscopy - Problems (1) GI bleeding Status: Acute Qualifiers: GI bleed type/associated pathology: melena Qualified Code(s): K92.1 - Melena (2) Diabetes Status: Chronic Qualifiers: Diabetes mellitus type: type 2 Diabetes mellitus assisted insulin use: without assisted use Diabetes mellitus complication status: without complication Qualified Code(s): E11.9 - Type 2 diabetes mellitus without complications (3) HTN (hypertension) Status: Chronic Qualifiers: Hypertension type: essential hypertension Qualified Code(s): I10 - Essential (primary) hypertension (4) Obesity Status: Acute Qualifiers: Obesity type: due to excess calories Obesity classification: adult class 3 (BMI >= 40) Serious obesity comorbidity presence: with serious comorbidity Body mass index: BMI 45.0-49.9 Qualified Code(s): E66.01 - Morbid (severe) obesity due to excess calories; Z68.42 - Body mass index (BMI) 45.0-49.9, adult Brief History of Present Illness: 53 y/o M with pmhx of HTN, Diabetes and obesity who presented to the ED with c/ o generalized Weakness for past 2 weeks. Pt states that he has also noticed dark tarry stool for past 1 week as well. Was recently seen by PCP who ordered stool occult. Stool occult is + and thus pt was asked to come to the ER for further testing and treatment. Pt denies CP, SOB, Diarrhea, N/V and abd pain. Does have h/o constipation, no Hemorrhoids however. Denies Smoking, alcohol use or drugs. No family h/o CA. No other associated symptoms and no other complains to offer In the ER was found to have hgb of 5.4 and olivia tarry stool and was thus referred over admission for further care. Hemodynamically stable. Hospital Course: Overall during the hospital stay patient remained stable Patient was initially admitted to the hospital for acute blood loss anemia most likely secondary to upper and lower GI bleed. GI was consulted. Patient was placed on IV Protonix. Initial hemoglobin was low and thus patient was transfused 2 packed RBC. Patient was kept NPO while here in the hospital. Patient had EGD and colonoscopy done with GI. EGD was consistent with several sets alcoholic gastritis and nonbleeding ulcers. Colonoscopy was consistent with several suicidal polyps as well which were nonbleeding and diverticulosis. At that time GI recommended that patient have a repeat colonoscopy in about 1 week to be placed on Protonix b.i.d.. Patient hemoglobin was monitored here in the hospital for next 24-48 hr. Patient had a small bowel series along with Meckel's diverticulum scan which were both within normal limits. Patient thus was discharged home under stable condition and was asked to follow up with GI for repeat colonoscopy. Patient demonstrate understanding and thus was discharged home under stable condition. Patient was given prescription for Protonix, Augmentin for dental infection and was asked to stop taking his aspirin until repeat colonoscopies done. Vital Signs/Physical Exam: Temp Pulse Resp BP Pulse Ox 97.6 F 78 16 158/89 H 98 02/20/19 11:00 02/20/19 11:00 02/20/19 11:00 02/20/19 11:00 02/20/19 11:00 General: Alert, In no apparent distress HEENT: Atraumatic, PERRLA, EOMI Neck: Supple, JVD not distended Respiratory: Clear to auscultation bilaterally, Normal air movement Cardiovascular: Regular rate/rhythm, Normal S1 S2 Gastrointestinal: Normal bowel sounds, No tenderness Musculoskeletal: No tenderness Integumentary: No rashes Neurological: Normal speech, Normal tone, Normal affect Lymphatics: No axilla or inguinal lymphadenopathy Laboratory Data at Discharge: WBC 9.4 K/uL (4.3-10.9) 02/20/19 05:15 Hgb 8.4 g/dL (13.6-17.9) L 02/20/19 05:15 Hct 25.8 % (39.6-49.0) L 02/20/19 05:15 Plt Count 178 K/uL (152-406) 02/20/19 05:15 PT 13.1 SECONDS (9.5-12.5) H 02/18/19 05:18 INR 1.11 02/18/19 05:18 APTT 27.3 SECONDS (24.3-36.9) 02/18/19 05:18 Sodium 142 mmol/L (136-145) 02/20/19 05:15 Potassium 4.0 mmol/L (3.5-5.1) 02/20/19 05:15 BUN 7 mg/dL (7-18) 02/20/19 05:15 Creatinine 1.26 mg/dL (0.55-1.3) 02/20/19 05:15 Glucose 98 mg/dL (74-106) 02/20/19 05:15 Phosphorus 3.8 mg/dL (2.5-4.9) 02/20/19 05:15 Magnesium 2.3 mg/dL (1.8-2.4) 02/20/19 05:15 Total Bilirubin 0.6 mg/dL (0.2-1.0) 02/20/19 05:15 AST 7 U/L (15-37) L 02/20/19 05:15 ALT 15 U/L (12-78) 02/20/19 05:15 Alkaline Phosphatase 62 U/L (45-117) 02/20/19 05:15 Home Medications: Aspirin [Adult Low Dose Aspirin EC] 81 mg PO DAILY 02/17/19 Atorvastatin Calcium 20 mg PO DAILY 02/17/19 Carvedilol [Coreg*] 25 mg PO BID 02/17/19 Cholecalciferol (Vitamin D3) [Vitamin D 1000 Iu Tab*] 2,000 unit PO DAILY Irbesartan/Hydrochlorothiazide [Avalide 300-12.5 mg Tablet] 1 each PO DAILY Omeprazole [Prilosec] 20 mg PO BID 02/17/19 Saxagliptin HCl/Metformin HCl [Kombiglyze Xr 5-1,000 mg Tab] 1 tab PO DAILY Amox/Clavulanate [Augmentin 875-125 Tab*] 875 mg PO BID #14 tab 02/20/19 New Medications: Amox/Clavulanate [Augmentin 875-125 Tab*] 875 mg PO BID #14 tab Patient Discharge Instructions: Please f.u with PCP and GI in 1 week post discharge. No New medication. Hold ASA for next 10 days till your colonscopy is done again with Dr Pepper Diet: Regular Activity: Ad jaymie Followup: Cristino Pepper MD [ASSOCIATE-ACTIVE - CAN ADMIT] - 1 Week (call to schedule apointment)
[2019-02-20] MEDS ORDERED: METRONIDAZOLE 500mg IVPB 500 MG/100 ML BAG IV ONE (22:22)
== END 2019-02-20 11:09 | disposition home or self-care (01) | DRG 378 ==
LOC: ER 13:58 → ERHOLD 17:01 → 3RD-ICU 18:08 → 4TH 02-18 16:30
PROVIDERS: ADMIT Family Medicine; ATTEND Family Medicine
PROC: 30233N1 Transfusion of Nonautologous Red Blood Cells into Peripheral Vein, Percutaneous Approach (ICD-10-PCS; principal; 2019-02-17)
PROC: 0DB68ZX Excision of Stomach, Via Natural or Artificial Opening Endoscopic, Diagnostic (ICD-10-PCS; 2019-02-18)
PROC: 0DB78ZX Excision of Stomach, Pylorus, Via Natural or Artificial Opening Endoscopic, Diagnostic (ICD-10-PCS; 2019-02-18)
PROC: 0DJD8ZZ Inspection of Lower Intestinal Tract, Via Natural or Artificial Opening Endoscopic (ICD-10-PCS; 2019-02-19)
DX: K92.2 Gastrointestinal hemorrhage, unspecified (principal); Z68.42 Body mass index [BMI] 45.0-49.9, adult; D62 Acute posthemorrhagic anemia; E11.9 Type 2 diabetes mellitus without complications; I10 Essential (primary) hypertension; E66.01 Morbid (severe) obesity due to excess calories; K59.00 Constipation, unspecified; K29.20 Alcoholic gastritis without bleeding; K25.9 Gastric ulcer, unspecified as acute or chronic, without hemorrhage or perforation; K57.90 Diverticulosis of intestine, part unspecified, without perforation or abscess without bleeding; Z79.84 Long term (current) use of oral hypoglycemic drugs; Z79.82 Long term (current) use of aspirin; K20.8 Other esophagitis; K31.7 Polyp of stomach and duodenum; D12.5 Benign neoplasm of sigmoid colon; K64.8 Other hemorrhoids; D50.9 Iron deficiency anemia, unspecified
CPT/HCPCS: 36415; 36430; 74176; 74250; 78290; 80048; 80053; 82728; 82962; 83540; 83735; 84100; 84466; 85014; 85018; 85025; 85610; 85730; 86850; 86900; 86901; 88305; 88312; 94760; 96361; 96365; 99285; A9512; C9113; J2704; J2765; J7030; P9016

== ENCOUNTER 2019-04-13 11:17 | Emergency (ER) | payer OTHER ==
[2019-04-13] MEDS ORDERED: PANTOPRAZOLE 40 MG INJ ONE (12:11)
[2019-04-13] MEDS ORDERED: PANTOPRAZOLE INJ 80 MG in NA CHLORIDE 0.9% 250 ML IV ONE (12:30)
[2019-04-13 14:03] LABS: Protime INR 1.22
[2019-04-13 14:05] LABS: Absolute Lymphocytes (CBC) 2.5 K/uL (0.7-4.9); Absolute Monocytes 1.3 K/uL (0.1-1.3); Absolute Neutrophil 21.5 K/uL (1.8-8.0); Basophils % 0.1 % (0-1.3); Hematocrit 19.2 % (39.6-49.0); Lymphocytes % 9.8 % (15.3-44.8); MPV 9.9 fL (7.6-11.3); Monocytes % 5.3 % (3.3-12.3); RBC Red Blood Cell Count 2.59 M/uL (4.33-5.43)
[2019-04-13 14:16] LABS: Bilirubin Direct 0.1 mg/dL (0-0.2); Bilirubin Total 0.3 mg/dL (0.2-1.0); Potassium 4.6 mmol/L (3.5-5.1); Protein, Total 5.8 g/dL (6.4-8.2)
[2019-04-13] MEDS ORDERED: NA CHLORIDE 0.9% 500 ML ONE (14:43)
--- NOTE | 2019-04-13 14:51 | RAD REPORT ---
EXAM DESCRIPTION: CT - Abdomen Pelvis Wo Contrast - 04/13/2019 2:37 pm CLINICAL HISTORY: Abdominal pain, GI bleed COMPARISON: CT February 17, 2019 TECHNIQUE: Axial [address] imaging of the abdomen and pelvis was performed without IV contrast. No IV contrast was given because of allergy, abnormal renal function, patient refusal or physician re quest. No oral contrast administered. All CT scans are performed using dose optimization technique as appropriate and may include automated exposure control or mA/KV adjustment according to patient size. FINDINGS: No suspicious findings in the lung bases. No pericardial thickening or effusion. The liver, spleen and pancreas show no suspicious findings on non-contrast imaging. Gallbladder and b iliary tree are also without suspicious finding. No hydronephrosis or suspicious renal mass. No significant adrenal finding. Isodense renal masses an d pyelonephritis cannot be excluded in the absence of IV contrast. The urinary bladder is without sig nificant finding. The large mass in the body of the stomach is unchanged from February 17 examination. Assessment is limit ed in the absence of oral and IV contrast. No history is provided to indicate whether the mass is bee n evaluated by endoscopy. Gastric wells of the stomach are otherwise unremarkable. No dilated small b owel. No colon dilatation or focal colon wall thickening. Possible polyp was seen in the left-side of the transverse colon on the January examination. This portion of the colon is decompressed and the het erogeneous stool within the colon limits re-evaluation of this possible polyp. No other acute or sign ificant colon finding seen. No appendicitis. No free air, free fluid or inflammatory stranding. No hernia, mass or bulky lymphadenopathy. Prominent bony degenerative changes are present. IMPRESSION: Approximately 6 centimeter mass in the body of the stomach is unchanged from February 17, 2 019. It is unknown if this patient has undergone endoscopy to evaluate this mass. No acute GI process seen. No abnormality to explain a GI bleed. Questionable 10 mm polyp left-side tr ansverse colon is obscured on the current examination by bowel content and decompressed colon. Full assessment is limited is the absence of IV contrast.
--- NOTE | 2019-04-13 15:31 | ER ---
Nurse's Notes [facility] Name: Octavio Lay Age: 53 yrs Sex: Male : 1965 Arrival Date: 04/13/2019 Time: 11:20 Bed 15 Private MD: Diagnosis: Gastrointestinal hemorrhage, unspecified-upper Presentation: 04/13 11:27 Presenting complaint: Dark tarry stool x 2 days. Denies pain. Transition of care: hb patient was not received from another setting of care. Onset of symptoms was April 12, 2019. Risk Assessment: Do you want to hurt yourself or someone else? Patient reports no desire to harm self or others. Care prior to arrival: None. 11:27 Method Of Arrival: Ambulatory hb 11:27 Acuity: CRUZITO 3 hb 14:23 Initial Sepsis Screen: Does the patient meet any 2 criteria? HR > 90 bpm. Does the tw2 patient have a suspected source of infection? No. Patient's initial sepsis screen is negative. Historical: - Allergies: 11:30 Bactrim DS; kidney fxn; hb - Home Meds: 11:30 aspirin 81 mg Oral chew 1 tab once daily [Active]; atorvastatin 20 mg Oral tab once hb daily [Active]; carvedilol 25 mg Oral tab 1 tab 2 times per day [Active]; irbesartan-hydrochlorothiazide 300-12.5 mg Oral tab [Active]; Omeprazole Oral [Active]; saxagliptin-metformin Oral once daily [Active]; - PMHx: 11:30 Diabetes - NIDDM; Hypertension; hb - PSHx: 11:30 ankle sx; hb - Immunization history:: Adult Immunizations up to date. - Social history:: Smoking status: Patient/guardian denies using tobacco. - Ebola Screening: : No symptoms or risks identified at this time. Screenin:23 Abuse screen: Denies threats or abuse. Nutritional screening: No deficits noted. tw2 Tuberculosis screening: No symptoms or risk factors identified. Fall Risk None identified. Assessment: 07:40 Reassessment: Patient appears in no apparent distress at this time. No changes from tw2 previously documented assessment. Patient and/or family updated on plan of care and expected duration. Pain level reassessed. Patient is alert, oriented x 3, equal unlabored respirations, skin warm/dry/pink. 11:22 General: Appears in no apparent distress. obese, Behavior is calm, cooperative, tw2 appropriate for age. Pain: Denies pain. Neuro: Level of Consciousness is awake, alert, obeys commands, Oriented to person, place, time, situation. Cardiovascular: Heart tones S1 S2 Patient's skin is warm and dry. Respiratory: Airway is patent Respiratory effort is even, unlabored, Respiratory pattern is regular, symmetrical, Breath sounds are clear bilaterally. GI: Abdomen is round non-distended, obese, Bowel sounds present X 4 quads. Reports bloody stool. : No signs and/or symptoms were reported regarding the genitourinary system. EENT: No signs and/or symptoms were reported regarding the EENT system. Derm: No signs and/or symptoms reported regarding the dermatologic system. Musculoskeletal: Range of motion: intact in all extremities. 13:19 Reassessment: Patient appears in no apparent distress at this time. No changes from tw2 previously documented assessment. Patient and/or family updated on plan of care and expected duration. Pain level reassessed. Patient is alert, oriented x 3, equal unlabored respirations, skin warm/dry/pink. provider MICHELLE Roa at bedside at this time with US for guided iv access. 14:22 Reassessment: Patient appears in no apparent distress at this time. No changes from tw2 previously documented assessment. Patient and/or family updated on plan of care and expected duration. Pain level reassessed. Patient is alert, oriented x 3, equal unlabored respirations, skin warm/dry/pink. 15:00 Reassessment: provider at bedside at this time, no EJ access, iv attempt in hand at tw2 this time. 15:54 Reassessment: Patient appears in no apparent distress at this time. No changes from tw2 previously documented assessment. Patient and/or family updated on plan of care and expected duration. Pain level reassessed. Patient is alert, oriented x 3, equal unlabored respirations, skin warm/dry/pink. 16:00 Reassessment: SEE BLOOD TRANSFUSION RECORD IN PATIENTS CHART. tw2 16:24 Reassessment: Patient appears in no apparent distress at this time. No changes from tw2 previously documented assessment. Patient and/or family updated on plan of care and expected duration. Pain level reassessed. Patient is alert, oriented x 3, equal unlabored respirations, skin warm/dry/pink. Vital Signs: 11:28 BP 121 / 43; Pulse 115; Resp 16; Temp 97.4; Pulse Ox 100% on R/A; Weight 111.13 kg; hb Height 5 ft. 10 in. (177.80 cm); Pain 0/10; 13:38 BP 129 / 80; Pulse 109; Resp 20; Temp 98.0(TE); Pulse Ox 100% ; mh5 14:22 BP 101 / 86; Pulse 107; Resp 17; Pulse Ox 100% on R/A; tw2 15:29 BP 101 / 86; Pulse 105; Resp 20; Temp 99.7(O); Pulse Ox 100% on R/A; mh5 15:51 BP 129 / 75; Pulse 120; Resp 17; Pulse Ox 100% on R/A; tw2 16:24 BP 128 / 80; Pulse 115; Resp 19; Pulse Ox 100% on R/A; tw2 11:28 Body Mass Index 35.15 (111.13 kg, 177.80 cm) hb ED Course: 11:20 Patient arrived in ED. mr 11:22 Placed in gown. Bed in low position. Side rails up X 1. Adult w/ patient. Cardiac tw2 monitor on. Pulse ox on. NIBP on. 11:24 Sandra Triplett RN is Primary Nurse. tw2 11:28 Crispin Cantu NP is PHCP. pm1 11:28 Spencer Qureshi MD is Attending Physician. pm1 11:28 Triage completed. hb 11:29 Arm band placed on. hb 12:19 Missed attempt(s): 20 gauge in right antecubital area. Bleeding controlled, band aid tw2 applied, catheter tip intact. Missed attempt(s): 22 gauge in left antecubital area. notified charge nurse SAUD Murphy as the need for iv access at this time.. Bleeding controlled, band aid applied, catheter tip intact. 12:46 Missed attempt(s): 22 gauge in right wrist. Bleeding controlled, band aid applied, ss catheter tip intact. 12:54 Radiology exam delayed due to lab results not completed at this time. (BUN/Creatinine) sj IV insertion attempt and/or patient not having appropriate IV at this time. 13:10 Missed attempt(s): 22 gauge in left antecubital area. Bleeding controlled, band aid aj1 applied, catheter tip intact. 13:11 Missed attempt(s): 22 gauge in left antecubital area. Bleeding controlled, band aid aj1 applied, catheter tip intact. 14:36 Abdomen In Process Unspecified. EDMS 15:01 Missed attempt(s): 22 gauge in left wrist. per MICHELLE Roa. tw2 15:05 Missed attempt(s): 22 gauge in right hand. Bleeding controlled, band aid applied, tw2 catheter tip intact. 15:30 Inserted saline lock: 20 gauge in right antecubital area, using aseptic technique. tw2 ,using aseptic technique. via Dr. Qureshi using US as guide technique Blood collected. 16:09 Notified Nurse Practitioner and/or Physician [employer] Agent of a critical lab result(s), aj1 Lactate 5.1. 16:49 Inserted saline lock: 20 gauge 22 gauge in left antecubital area, using aseptic tw2 technique. ,using aseptic technique. double lumen catheter by Dr. Qureshi. 17:06 X-ray completed. Portable x-ray completed in exam room. Patient tolerated procedure ml well. 17:08 Chest Single View XRAY In Process Unspecified. EDMS 17:49 No provider procedures requiring assistance completed. Patient transferred, IV remains tw2 in place. Administered Medications: Discontinued: ProTONIX 8 mg/hr IV at 25 ml/hr continuous; (Standard dilution is 80 mg in 250 mL NS) 13:40 Drug: ProTONIX 40 mg Route: IVP; Site: right wrist; tw2 14:06 Follow up: Response: No adverse reaction tw2 13:43 Drug: ProTONIX 8 mg/hr Route: IV; Rate: 25 ml/hr; Site: right wrist; tw2 16:49 Follow up: IV Status: Infusion continued; to LEFT ac iv tw2 17:48 Follow up: Response: No adverse reaction; IV Status: Infusion continued upon transfer tw2 15:20 Drug: Cefepime 1 grams {Note: ivp available only.} Route: IVPB; Rate: 200 ml/hr; tw2 Infused Over: 5 mins; Site: left antecubital; 17:26 Follow up: Response: No adverse reaction; IV Status: Completed infusion tw2 16:22 CANCELLED (Change to Cefepime and Vancomycin): Rocephin 1 grams IV at calculated rate pm1 once; Given slow IV push per pharmacy instructions 17:28 CANCELLED (per pharmacy sepsis protocol 25mg/kg): vancoMYCIN 1 grams IVPB once over 2 tw2 hrs 17:30 Drug: vancoMYCIN 2.75 grams Route: IVPB; Rate: calculated rate; Site: left antecubital; tw2 17:41 Follow up: IV Status: Completed infusion; Infusion continued upon transfer tw2 17:47 Not Given (2l infusing at this time of pts transfer): NS 0.9% (30 ml/kg) 30 ml/kg IV at tw2 bolus once; Sepsis Protocol Intake: Outcome: 15:29 ER care complete, transfer ordered by . pm1 17:49 Transferred by ground EMS to [facility]. tw2 17:49 Condition: stable 17:49 Instructed on the need for admit. 17:49 Patient left the ED. tw2 Signatures: Dispatcher [employer] EDSangeeta Cuevas RN RN aj1 Pau Yee mr Facundo, Lorie Chawla Shelby, RN RN ss Marinas, Patrick, MICHELLE COLLAR TURNER OPERATOR pm1 Angi Minor RN RN Sandra Triplett RN RN tw2 Елена Cortez [facility] Corrections: (The following items were deleted from the chart) 12:37 12:22 BP 87 / 47; Pulse 105bpm; Resp 18bpm; Pulse Ox 100% RA; Temp 98.0F Temporal; mh5 tw2
--- NOTE | 2019-04-13 15:31 | EDPHYS ---
Physician Documentation [facility] Name: Octavio Lay Age: 53 yrs Sex: Male : 1965 Arrival Date: 04/13/2019 Time: 11:20 Bed 15 Private MD: ED Physician Spencer Qureshi HPI: 04/13 12:05 This 53 yrs old Black Male presents to ER via Ambulatory with complaints of Black/Tarry pm1 Stools. 12:05 The patient presents to the emergency department with rectal bleeding, melena. Onset: pm1 The symptoms/episode began/occurred yesterday. Abdominal pain: none is appreciated. Modifying factors: The symptoms are alleviated by nothing, the symptoms are aggravated by nothing. Associated signs and symptoms: Pertinent negatives: chest pain, fever, shortness of breath, syncope, near-syncope, vomiting. Severity of symptoms: in the emergency department the symptoms are unchanged Pain is currently a 0 / 10. The patient has experienced a previous episode, approximately 2 months ago. Historical: - Allergies: 11:30 Bactrim DS; kidney fxn; hb - Home Meds: 11:30 aspirin 81 mg Oral chew 1 tab once daily [Active]; atorvastatin 20 mg Oral tab once hb daily [Active]; carvedilol 25 mg Oral tab 1 tab 2 times per day [Active]; irbesartan-hydrochlorothiazide 300-12.5 mg Oral tab [Active]; Omeprazole Oral [Active]; saxagliptin-metformin Oral once daily [Active]; - PMHx: 11:30 Diabetes - NIDDM; Hypertension; hb - PSHx: 11:30 ankle sx; hb - Immunization history:: Adult Immunizations up to date. - Social history:: Smoking status: Patient/guardian denies using tobacco. - Ebola Screening: : No symptoms or risks identified at this time. ROS: 12:05 Constitutional: Negative for fever, chills, and weight loss, Eyes: Negative for injury, pm1 pain, redness, and discharge, ENT: Negative for injury, pain, and discharge, Neck: Negative for injury, pain, and swelling, Cardiovascular: Negative for chest pain, palpitations, and edema, Respiratory: Negative for shortness of breath, cough, wheezing, and pleuritic chest pain. 12:05 Back: Negative for injury and pain, : Negative for injury, bleeding, discharge, and swelling, MS/Extremity: Negative for injury and deformity, Skin: Negative for injury, rash, and discoloration, Neuro: Negative for headache, weakness, numbness, tingling, and seizure. 12:05 Abdomen/GI: Positive for black/tarry stool, Negative for abdominal pain, nausea, vomiting, and diarrhea. 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 12:05 Constitutional: This is a well developed, well nourished patient who is awake, alert, pm1 and in no acute distress. Head/Face: Normocephalic, atraumatic. Eyes: Pupils equal round and reactive to light, extra-ocular motions intact. Lids and lashes normal. Conjunctiva and sclera are non-icteric and not injected. Cornea within normal limits. Periorbital areas with no swelling, redness, or edema. ENT: Nares patent. No nasal discharge, no septal abnormalities noted. Tympanic membranes are normal and external auditory canals are clear. Oropharynx with no redness, swelling, or masses, exudates, or evidence of obstruction, uvula midline. Mucous membranes moist. Neck: Trachea midline, no thyromegaly or masses palpated, and no cervical lymphadenopathy. Supple, full range of motion without nuchal rigidity, or vertebral point tenderness. No Meningismus. Chest/axilla: Normal chest wall appearance and motion. Nontender with no deformity. No lesions are appreciated. Cardiovascular: Regular rate and rhythm with a normal S1 and S2. No gallops, murmurs, or rubs. Normal PMI, no JVD. No pulse deficits. Respiratory: Lungs have equal breath sounds bilaterally, clear to auscultation and percussion. No rales, rhonchi or wheezes noted. No increased work of breathing, no retractions or nasal flaring. Back: No spinal tenderness. No costovertebral tenderness. Full range of motion. 12:05 Skin: Warm, dry with normal turgor. Normal color with no rashes, no lesions, and no evidence of cellulitis. MS/ Extremity: Pulses equal, no cyanosis. Neurovascular intact. Full, normal range of motion. 12:05 Abdomen/GI: Inspection: obese Bowel sounds: normal, Palpation: abdomen is soft and non-tender. 12:05 Neuro: Orientation: is normal, Motor: is normal, moves all fours, Sensation: is normal, no obvious gross deficits. Vital Signs: 11:28 BP 121 / 43; Pulse 115; Resp 16; Temp 97.4; Pulse Ox 100% on R/A; Weight 111.13 kg; hb Height 5 ft. 10 in. (177.80 cm); Pain 0/10; 13:38 BP 129 / 80; Pulse 109; Resp 20; Temp 98.0(TE); Pulse Ox 100% ; mh5 14:22 BP 101 / 86; Pulse 107; Resp 17; Pulse Ox 100% on R/A; tw2 15:29 BP 101 / 86; Pulse 105; Resp 20; Temp 99.7(O); Pulse Ox 100% on R/A; mh5 15:51 BP 129 / 75; Pulse 120; Resp 17; Pulse Ox 100% on R/A; tw2 16:24 BP 128 / 80; Pulse 115; Resp 19; Pulse Ox 100% on R/A; tw2 11:28 Body Mass Index 35.15 (111.13 kg, 177.80 cm) hb MDM: 11:29 Patient medically screened. pm1 11:38 Data reviewed: vital signs. Data interpreted: Pulse oximetry: on room air is 100 %. pm1 Interpretation: normal. 15:25 Counseling: I had a detailed discussion with the patient and/or guardian regarding: the pm1 historical points, exam findings, and any diagnostic results supporting the discharge/admit diagnosis, lab results, radiology results, the need to transfer to another facility, for higher level of care. 16:00 Physician consultation: Rn Transfer Jamilah regarding regarding transfer, consult, pm1 patient's condition, and will see patient. 16:20 Physician consultation: Bro Heck was contacted at 16:20, regarding regarding transfer, pm1 patient's condition, and will see patient in unit, would like medications started, Sepsis protocol IV fluids (30mL/kg bolus), Cefepime and Vancomycin. 04/13 11:42 Order name: Basic Metabolic Panel pm1 04/13 11:42 Order name: CBC with Diff pm1 04/13 11:42 Order name: Creatinine for Radiology; Complete Time: 14:17 pm1 04/13 11:42 Order name: Hepatic Function; Complete Time: 14:17 pm1 04/13 11:42 Order name: Type And Screen pm1 04/13 11:42 Order name: PT-INR; Complete Time: 14:17 pm1 04/13 11:43 Order name: Basic Metabolic Panel; Complete Time: 14:17 EDMS 04/13 11:43 Order name: CBC with Automated Diff; Complete Time: 17:18 EDDC 04/13 11:57 Order name: Occult Blood--Ancillary; Complete Time: 12:36 em1 04/13 14:22 Order name: Manual Differential; Complete Time: 17:18 EDMS 04/13 14:23 Order name: Blood Culture Adult (2) pm1 04/13 14:23 Order name: Procalcitonin; Complete Time: 15:45 pm1 04/13 14:23 Order name: Lactate; Complete Time: 16:10 pm1 04/13 14:44 Order name: Packed RBCs (Additional Unit) EDDC 04/13 11:42 Order name: IV Saline Lock; Complete Time: 14:06 pm04/13 11:42 Order name: Labs collected and sent; Complete Time: 14:06 pm04/13 14:23 Order name: Transfuse; Complete Time: 16:23 pm1 04/13 14:35 Order name: Abdomen ; Complete Time: 15:15 EDDC 04/13 16:30 Order name: Urine Microscopic Only; Complete Time: 17:18 pm1 04/13 16:33 Order name: Chest Single View XRAY; Complete Time: 17:18 pm1 04/13 16:52 Order name: Urine Dipstick--Ancillary (enter results); Complete Time: 17:18 04/13 16:30 Order name: Urine Dipstick-Ancillary (obtain specimen); Complete Time: 16:50 pm1 Administered Medications: Discontinued: ProTONIX 8 mg/hr IV at 25 ml/hr continuous; (Standard dilution is 80 mg in 250 mL NS) 13:40 Drug: ProTONIX 40 mg Route: IVP; Site: right wrist; tw2 14:06 Follow up: Response: No adverse reaction tw2 13:43 Drug: ProTONIX 8 mg/hr Route: IV; Rate: 25 ml/hr; Site: right wrist; tw2 16:49 Follow up: IV Status: Infusion continued; to LEFT ac iv tw2 17:48 Follow up: Response: No adverse reaction; IV Status: Infusion continued upon transfer tw2 15:20 Drug: Cefepime 1 grams {Note: ivp available only.} Route: IVPB; Rate: 200 ml/hr; tw2 Infused Over: 5 mins; Site: left antecubital; 17:26 Follow up: Response: No adverse reaction; IV Status: Completed infusion tw2 16:22 CANCELLED (Change to Cefepime and Vancomycin): Rocephin 1 grams IV at calculated rate pm1 once; Given slow IV push per pharmacy instructions 17:28 CANCELLED (per pharmacy sepsis protocol 25mg/kg): vancoMYCIN 1 grams IVPB once over 2 tw2 hrs 17:30 Drug: vancoMYCIN 2.75 grams Route: IVPB; Rate: calculated rate; Site: left antecubital; tw2 17:41 Follow up: IV Status: Completed infusion; Infusion continued upon transfer tw2 17:47 Not Given (2l infusing at this time of pts transfer): NS 0.9% (30 ml/kg) 30 ml/kg IV at tw2 bolus once; Sepsis Protocol Disposition: 15:24 Co-signature as Attending Physician, Spencer Qureshi MD Ultrasound IV placed by Dr. Qureshi, rn single attempt, right AC, good blood flow and return, easy to flush. . 16:41 Right AC IV infiltrated after patient moved arm. Another U/S IV placed by Dr. Qureshi, rn twin cath, left AC, good blood flow and return/flush. Single stick, tolerated well. . Disposition: 04/13/19 15:29 Transfer ordered to [facility]. Diagnosis is Gastrointestinal hemorrhage, unspecified - upper. - Reason for transfer: Higher level of care. - Accepting physician is [facility]. - Condition is Stable. - Problem is new. - Symptoms have improved. Signatures: Dispatcher [employer] EDSpencer Johnson MD MD rn Marinas, Patrick, NP TOWER SUPERVISOR pm1 Angi Minor RN RN hb Wise, Tara, RN RN tw2 Corrections: (The following items were deleted from the chart) 14:35 11:43 Abdomen Pelvis W Con+CT.RAD.BRZ ordered. EDMS EDMS 16:22 16:11 Rocephin 1 grams IV at calculated rate once; Given slow IV push per pharmacy pm1 instructions ordered. pm1 17:28 16:23 vancoMYCIN 1 grams IVPB once over 2 hrs ordered. pm1 tw2 17:49 15:29 04/13/2019 15:29 Transfer ordered to [facility]. Diagnosis is tw2 Gastrointestinal hemorrhage, unspecified - upper. Reason for transfer: Higher level of care. Accepting physician is [facility]. Condition is Stable. Problem is new. Symptoms have improved. pm1
[2019-04-13 16:49] LABS: Blood Morphology Comment NOTED (NOT SEEN); Platelet Estimate DECR; Platelets, Giant PRESENT
[2019-04-13 16:50] LABS: Anisocytosis 3+; Hypochromasia 2+; Polychromasia 1+
[2019-04-13 16:57] LABS: Urine Blood NEGATIVE (NEG); Urine Glucose NEGATIVE (NEG); Urine Protein NEGATIVE (NEG)
[2019-04-13] MEDS ORDERED: CEFEPIME/SWI 1gm 10 ML IVP ONE (17:00)
[2019-04-13 17:03] LABS: Urine Bacteria <20 /HPF (NONE SEEN); Urine Culture Reflex Order NOT NEEDED; Urine RBC NONE SEEN /HPF (NONE SEEN)
[2019-04-13] MEDS ORDERED: NA CHLORIDE 0.9% 2,000 ML ONE (17:04)
--- NOTE | 2019-04-13 17:13 | RAD REPORT ---
EXAM DESCRIPTION: RAD - Chest Single View - 04/13/2019 5:08 pm CLINICAL HISTORY: elevated lactate Chest pain. COMPARISON: CHEST SINGLE VIEW dated 05/05/2011 FINDINGS: Portable technique limits examination quality. The lungs are grossly clear. The heart is normal in size. No displaced fractures. IMPRESSION: No acute intrathoracic process suspected.
[2019-04-13] MEDS ORDERED: VANCOMYCIN 2.75 GM in NA CHLORIDE 0.9% 500 ML IVPB ONE (18:00)
[2019-04-14] MEDS ORDERED: VANCOMYCIN 2 GM in NA CHLORIDE 0.9% 500 ML IVPB SCH (12:00)
== END 2019-04-13 17:49 | disposition short-term general hospital (02) ==
LOC: ER 11:17
PROC: 30233N1 Transfusion of Nonautologous Red Blood Cells into Peripheral Vein, Percutaneous Approach (ICD-10-PCS; principal; 2019-04-13)
DX: K92.2 Gastrointestinal hemorrhage, unspecified (principal); I10 Essential (primary) hypertension; E11.9 Type 2 diabetes mellitus without complications; Z88.1 Allergy status to other antibiotic agents
CPT/HCPCS: 36415; 71045; 74176; 80048; 80076; 81003; 81015; 82272; 83605; 84145; 85025; 85610; 86850; 86900; 86901; 87040; 99285; C9113; J0692; J7030; P9016

== ENCOUNTER 2019-07-18 14:55 | Emergency (ER) | payer OTHER ==
--- OUTSIDE RECORDS SUMMARY | 2019-07-18 15:11 | XMS REPORT | Clinical Summary ---
:1965 Author Organization [facility] Address [address] [place] [address] Care Team Providers Name Role Phone Scarlet Soliz MD Primary Care Provider Allergies No Known Allergies Medications Medication Sig Dispensed Refills Start Date End Date Status atorvastatin Take 20 mg by 0 Active (LIPITOR) 20 MG mouth daily. tablet Default OP ins aspirin (ECOTRIN) Take 81 mg by 0 Active 81 MG enteric mouth daily. coated tablet omeprazole Take 20 mg by 0 Active (PriLOSEC) 20 MG mouth daily. capsule blood sugar To check sugar 200 strip 3 01/17/2019 Active diagnostic strips BID (glucose blood) strip test strips amLODIPine 6 02/20/2019 Active (NORVASC) 10 mg tablet ferrous sulfate Take 1 tablet 0 02/24/2019 Active 325 (65 FE) MG (325 mg total) tabletIndications by mouth daily : Other iron with breakfast. deficiency anemia Over the counter irbesartan-hydroc Take 1 tablet 90 tablet 3 04/20/2019 Active hlorothiazide by mouth daily. (AVALIDE) 300-12.5 mg per tablet carvedilol Take 1 tablet 180 tablet 3 04/20/2019 07/19/20 Active (COREG) 25 MG (25 mg total) 19 tablet by mouth 2 (two) times a day with meals for 90 days. SITagliptin-metfo Take 1 tablet 30 tablet 5 05/08/2019 Active rmin 50-1,000 mg by mouth daily. tablet, ER Dc Kombiglyze multiphase 24 as not covered hrIndications: on insurance Type 2 diabetes plan mellitus without complication, without long-term current use of insulin ([facility]) sAXagliptin-metfo Take 1 tablet 0 06/11/2018 01/11/20 Discontinued rmin 5-1,000 mg by mouth. 19 (Reorder) tablet, ER multiphase 24 hr blood sugar Use as 0 03/30/2017 01/11/20 Discontinued diagnostic strips directed, 19 (Alternate strip test strips daily, DX:E11.9 therapy) carvedilol Take 25 mg by 0 04/20/20 Discontinued (COREG) 25 MG mouth 2 (two) 19 (Reorder) tablet times a day with meals. amLODIPine Take 10 mg by 0 02/17/20 Discontinued (NORVASC) 10 mg mouth daily. 19 (Discontinued by tablet another clinician) sAXagliptin-metfo Take 1 tablet 60 tablet 5 01/11/2019 02/17/20 Discontinued rmin 5-1,000 mg by mouth 2 19 (Discontinued by tablet, ER (two) times a another multiphase 24 day. clinician) hrIndications: Type 2 diabetes mellitus without complication, without long-term current use of insulin ([facility]) blood sugar Check sugar 200 strip 3 01/11/2019 01/17/20 Discontinued diagnostic strips twice a day 19 (Alternate (ACCU-CHEK therapy) SMARTVIEW TEST STRIP) strip test stripsIndications : Type 2 diabetes mellitus without complication, without long-term current use of insulin ([facility]) irbesartan-hydroc Take 1 tablet 0 04/20/20 Discontinued hlorothiazide by mouth daily. 19 (Reorder) (AVALIDE) 300-12.5 mg per tablet sAXagliptin-metfo Take by mouth 0 05/08/20 Discontinued rmin (KOMBIGLYZE daily. 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 pylori) infection 02/18/2019 Overview: on EGD Gastritis 02/18/2019 Overview: on EGD Iron deficiency anemia 02/16/2019 Anemia 01/11/2019 Type 2 diabetes mellitus without complication, without long-term current 07/21 use of insulin Diabetes mellitus, type 2 Essential hypertension, benign Hyperlipidemia Morbid obesity GERD (gastroesophageal reflux disease) Vitamin D deficiency Resolved Problems Problem Noted Date Resolved Date Known health problems: none 06/23/2018 07/21/2018 Encounters Date Type Specialty Care Team Description 05/05/2019 Telephone Family Medicine Senia Stevenson, BONE [employer] KILN TENDER 04/19/2019 Telephone Family Medicine Scarlet Soliz MD 02/24/2019 Office Visit Family Scarlet Wilson Gastrointestinal hemorrhage, unspecified gastrointestinal hemorrhage type (Primary Dx); MD Iris Other iron deficiency anemia; Adjustment reaction with anxiety; Morbid obesity (HCC); Type 2 diabetes mellitus without complication, without long-term current use of insulin (HCC); Essential hypertension, benign; Mixed hyperlipidemia 02/17/2019 Telephone Internal Medicine Kenzie Edwards MD 02/17/2019 Telephone Internal Medicine Kenzie Edwards MD 02/16/2019 Office Visit Internal Medicine Kenzie Edwards, Dark stools ( Primary Dx); Chronic fatigue; Anemia, unspecified type 02/14/2019 Telephone [facility] Scarlet Wilson MD 01/11/2019 Office Visit [facility] Scarlet Wilson Type 2 diabetes mellitus without complication, without long-term current use of insulin (HCC) ( Primary Dx); MD Iris Essential hypertension, benign; Mixed hyperlipidemia; Morbid obesity (HCC); Flu vaccine need; Screening for thyroid disorder 07/21/2018 Office Visit Family Scarlet Wilson Physical exam ( Primary Dx); MD Iris Screening for malignant neoplasm of colon; Type 2 diabetes mellitus without complication, without long-term current use of insulin; Essential hypertension, benign; Mixed hyperlipidemia; Morbid obesity after 2018 Immunizations Name Administration Dates Next Due INFLUENZA QUAD PF 01/11/2019 Family History Medical History Relation Name Comments Hypertension Brother Stroke Brother Hypertension Brother Jose J No Known Problems Daughter adopted No Known Problems Daughter adopted Other Father 40 unknown cause Heart attack Maternal Grandfather Breast cancer Maternal Grandmother Cancer Maternal Uncle Cancer Maternal Uncle Stroke Mother Hypertension Sister No Known Problems Son No Known Problems Son adopted No Known Problems Son adopted Relation Name Status Comments Brother (Age 41) Brother Jose J Alive Daughter adopted Alive Daughter adopted Alive Father 40 Maternal Grandfather Maternal Grandmother Maternal Uncle Maternal Uncle Mother (Age 40) Sister Alive Son Alive Son adopted Alive Son adopted Alive Social History Tobacco Use Types Packs/Day Years Used Date Never Smoker Smokeless Tobacco: Never Used Alcohol Use Drinks/Week oz/Week Comments Yes drinks beer occasionally Sex Assigned at Date Recorded Not on file Job Start Date Occupation Industry Not on file Not on file Not on file Travel History Travel Start Travel End No recent travel history available. Last Filed Vital Signs Vital Sign Reading Time Taken Comments Blood Pressure 141/90 02/24/2019 11:13 AM CDT Pulse 80 02/24/2019 11:13 AM CDT Temperature 37.3 C (99.2 F) 02/16/2019 9:54 AM CDT Respiratory Rate 16 02/16/2019 9:54 AM CDT Oxygen Saturation - - Inhaled Oxygen Concentration - - Weight 136 kg (300 lb) 02/24/2019 11:13 AM CDT Height 177.8 cm (5' 10") 02/24/2019 11:13 AM CDT Body Mass Index 43.05 02/24/2019 11:13 AM CDT Plan of Treatment Health Maintenance Due Date Last Done Comments DIABETIC RETINAL EYE EXAM 1965 DIABETIC FOOT EXAM 06/11/2019 06/11/2018, 06/11/2018 INFLUENZA VACCINE 06/23/2019 01/11/2019 URINE MICROALBUMIN 01/11/2020 01/11/2019, 01/30/2018 SHINGLES VACCINES (#1) 05/08/2020 Postponed from 2017 (Insurance / Financial) COLONOSCOPY SCREENING 02/19/2022 02/19/2019 Procedures Procedure Name Priority Date/Time Associated Diagnosis Comments FERRITIN LEVEL Routine 02/16/2019 10:37 Dark stools Results for this AM CDT Anemia, unspecified procedure are in type the results section. IRON LEVEL Routine 02/16/2019 10:37 Dark stools Results for this AM CDT Chronic fatigue procedure are in Anemia, unspecified the results type section. CBC WITH PLATELET AND Routine 02/16/2019 10:37 Dark stools Results for this DIFFERENTIAL AM CDT Chronic fatigue procedure are in Anemia, unspecified the results type section. MICROSCOPIC Routine 01/11/2019 11:25 Results for this EXAMINATION AM CHANNELING MACHINE OPERATOR procedure are in the results section. URINALYSIS, COMPLETE, Routine 01/11/2019 11:25 Essential Results for this WITH REFLEX TO AM CHANNELING MACHINE OPERATOR hypertension, benign procedure are in CULTURE the results section. MICROALBUMIN / Routine 01/11/2019 11:25 Type 2 diabetes Results for this CREATININE URINE AM CHANNELING MACHINE OPERATOR mellitus without procedure are in RATIO complication, without the results long-term current use section. of insulin (HCC) HEMOGLOBIN A1C Routine 01/11/2019 11:25 Type 2 diabetes Results for this AM CHANNELING MACHINE OPERATOR mellitus without procedure are in complication, without the results long-term current use section. of insulin ([facility]) TSH REFLEX TO T4F Routine 01/11/2019 11:25 Screening for thyroid Results for this AM CHANNELING MACHINE OPERATOR disorder procedure are in the results section. LIPID PANEL Routine 01/11/2019 11:25 Mixed hyperlipidemia Results for this AM CHANNELING MACHINE OPERATOR procedure are in the results section. CBC WITH PLATELET AND Routine 01/11/2019 11:25 Type 2 diabetes Results for this DIFFERENTIAL AM CHANNELING MACHINE OPERATOR mellitus without procedure are in complication, without the results long-term current use section. of insulin ([facility]) Essential hypertension, benign COMPREHENSIVE Routine 01/11/2019 11:25 Type 2 diabetes Results for this METABOLIC PANEL AM CHANNELING MACHINE OPERATOR mellitus without procedure are in complication, without the results long-term current use section. of insulin (HCC) Essential hypertension, benign after 2018 Results CBC with platelet and differential (02/16/2019 10:37 AM CDT)Only the most recent of2 resultswithin the time period is included. WBC 9.9 3.4 - 10.8 [facility] x10E3/uL RBC 2.43 (LL) 4.14 - 5.80 [facility] Comment: x10E6/uL Few nucleated RBC's. Polychromasia present HGB 4.9 (<)Comment: 13.0 - 17.7 [facility] Verified by repeat g/dL analysis HCT 17.2 (<) 37.5 - 51.0 % [facility] MCV 71 (L) 79 - 97 fL [facility] MCH 20.2 (L) 26.6 - 33.0 [facility] pg MCHC 28.5 (L) 31.5 - 35.7 [facility] g/dL RDW 22.9 (H) 12.3 - 15.4 % [facility] Platelet count 282 150 - 379 [facility] x10E3/uL Neutrophils 72 Not Estab. % [facility] Lymphocytes 22 Not Estab. % [facility] Monocytes 5 Not Estab. % [facility] Eosinophils 1 Not Estab. % [facility] Basophils 0 Not Estab. % [facility] Neutrophils, 7.1 (H) 1.4 - 7.0 [facility] absolute x10E3/uL Lymphocytes, 2.2 0.7 - 3.1 [facility] absolute x10E3/uL Monocytes, absolute 0.5 0.1 - 0.9 [facility] x10E3/uL Eosinophils, 0.1 0.0 - 0.4 [facility] absolute x10E3/uL Basophils, absolute 0.0 0.0 - 0.2 [facility] x10E3/uL Nucleated RBC 10 (H) 0 - 0 % [facility] Hematology Note:Comment: Manual [facility] comments: differential was performed. Specimen Blood Narrative Performed At [id number] Membership Coordinator: Ethan Iglesias MD, Phone:[phone] Specimen Comment: Test(s) RBC; Hemoglobin; Hematocrit called to Shayla Zuniga on 02/17/2019 a Specimen Comment: t 14:53 EST Performing Organization Address [facility] Phone Number [facility] Iron level (02/16/2019 10:37 AM CDT) Iron level 10 (L) 38 - 169 ug/dL [facility] Specimen Blood Narrative Performed At Performed at: [id number] Membership Coordinator: Ethan Iglesias MD, Phone:[phone] Performing Organization Address [facility] Phone Number [facility] Ferritin level (02/16/2019 10:37 AM CDT) Ferritin level 4 (L) 30 - 400 ng/mL [facility] Specimen Blood Narrative Performed At [facility]: [id number] Membership Coordinator: Ethan Iglesias MD, Phone:[phone] Performing Organization Address [facility] Phone Number [facility] URINALYSIS, COMPLETE, WITH REFLEX TO CULTURE (01/11/2019 11:25 AM CHANNELING MACHINE OPERATOR) Specific gravity, 1.014 1.005 - 1.030 [facility] urine pH, urine 6.0 5.0 - 7.5 [facility] Color, UA Yellow Yellow [facility] Appearance Clear Clear [facility] WBC esterase, urine Negative Negative [facility] Protein, UA Negative Negative/Trace [facility] Glucose, urine Negative Negative [facility] Ketones, UA Negative Negative [facility] Occult blood, urine Negative Negative [facility] Bilirubin, UA Negative Negative [facility] Urobilinogen, UA 0.2 0.2 - 1.0 mg/dL [facility] Nitrite, UA Negative Negative [facility] Microscopic CommentComment: [facility] examination Microscopic follows if indicated. Microscopic See below:Comment: [facility] examination Microscopic was indicated and was performed. Urinalysis reflex CommentComment: [facility] This specimen will not reflex to a Urine Culture. Specimen Narrative Performed At Performed at:[address] [place] [address] [facility] [address] [place], [place] [id number] Membership Coordinator: Ethan Iglesias MD, Phone:[phone] Performing Organization Address [facility] Phone Number [facility] TSH reflex to T4 (01/11/2019 11:25 AM CHANNELING MACHINE OPERATOR) TSH 2.290 0.450 - 4.500 uIU/mL [facility] Specimen Blood Narrative Performed At Performed at: [facility] [address] [place], [place] [id number] Membership Coordinator: Ethan Iglesias MD, Phone:[phone] Performing Organization Address [facility] Phone Number [facility] Microscopic Examination (01/11/2019 11:25 AM CHANNELING MACHINE OPERATOR) WBC, UA 0-5 0 - 5 /hpf [facility] RBC, UA None seen 0 - 2 /hpf [facility] Epithelial cells (non 0-10 0 - 10 /hpf [facility] renal) Mucus, UA Present Not Estab. [facility] Bacteria, UA None seen None seen/Few [facility] Specimen Narrative Performed At Performed at: [id number] Membership Coordinator: Ethan Iglesias MD, Phone:[phone] Performing Organization Address [facility] Phone Number [facility] Microalbumin / creatinine urine ratio (01/11/2019 11:25 AM CHANNELING MACHINE OPERATOR) Creatinine, urine, 73.5 Not Estab. [facility] random mg/dL Microalbumin, urine <3.0Comment: Not Estab. [facility] Verified by ug/mL repeat analysis Microalbumin/creati <4.1 0.0 - 30.0 mg/g [facility] nine ratio Comment: creat Normal: 0.0 -30.0 Albuminuria: 31.0 - 300.0 Clinical albuminuria: > 300.0 Specimen Urine Narrative Performed At Performed at: [id number] Membership Coordinator: Ethan Iglesias MD, Phone:[phone] Performing Organization Address [facility] Phone Number [facility] Hemoglobin A1c (01/11/2019 11:25 AM CHANNELING MACHINE OPERATOR) Hemoglobin A1C 6.1 (H) 4.8 - 5.6 % [facility] Comment: Prediabetes: 5.7 - 6.4 Diabetes: >6.4 Glycemic control for adults with diabetes: <7.0 Specimen Blood Narrative Performed At Performed at: [id number] Membership Coordinator: Ethan Iglesias MD, Phone:[phone] Performing Organization Address [facility] Phone Number [facility] Lipid panel (01/11/2019 11:25 AM CHANNELING MACHINE OPERATOR) Cholesterol 173 100 - 199 mg/dL [facility] Triglycerides 130 0 - 149 mg/dL [facility] HDL cholesterol 51 >39 mg/dL [facility] VLDL cholesterol natalio 26 5 - 40 mg/dL [facility] LDL cholesterol calculated 96 0 - 99 mg/dL [facility] Non-HDL cholesterol 122 0 - 129 mg/dL [facility] Specimen Blood Narrative Performed At Performed at: [id number] Membership Coordinator: Ethan Iglesias MD, Phone:[phone] Performing Organization Address [facility] Phone Number [facility] Comprehensive metabolic panel (01/11/2019 11:25 AM CHANNELING MACHINE OPERATOR) Glucose 102 (H) 65 - 99 mg/dL [facility] BUN, whole blood 14 6 - 24 mg/dL [facility] Creatinine 1.18 0.76 - 1.27 mg/dL [facility] EGFR Non-Afr. [place]an 71 >59 mL/min/1.73 [facility] EGFR 82 >59 mL/min/1.73 [facility] BUN/creatinine ratio 12 9 - 20 [facility] Sodium 141 134 - 144 mmol/L [facility] Potassium 4.4 3.5 - 5.2 mmol/L [facility] Chloride 102 96 - 106 mmol/L [facility] CO2 24 20 - 29 mmol/L [facility] Calcium 9.6 8.7 - 10.2 mg/dL [facility] Protein 7.2 6.0 - 8.5 g/dL [facility] Albumin, S 4.5 3.5 - 5.5 g/dL [facility] Globulin, total 2.7 1.5 - 4.5 g/dL [facility] Albumin/globulin ratio 1.7 1.2 - 2.2 [facility] Total bilirubin 0.3 0.0 - 1.2 mg/dL [facility] Alkaline phosphatase 74 39 - 117 IU/L [facility] AST 20 0 - 40 IU/L [facility] ALT 19 0 - 44 IU/L [facility] Specimen Blood Narrative Performed At Performed at:01 - [facility] [place] [facility] [address] [place], [id number] Membership Coordinator: Ethan Iglesias MD, Phone:[phone] Performing Organization Address City/State/Zipcode Phone Number [facility] after 2018 Advance Directives For more information, please contact: [phone] Type Date Recorded Patient Learning Engineer Explanation Advance Directives, Living Will and Medical Power of Log Manager
--- OUTSIDE RECORDS SUMMARY | 2019-07-18 15:12 | XMS REPORT | Clinical Summary ---
:1965 Author Organization [facility] Address [address] [place] [address] Care Team Providers Name Role Phone Pcp, No Primary Care Provider Unavailable Allergies No Known Allergies Medications Medication Sig Dispensed Refills Start Date End Date Status carvedilol (COREG) Take 25 mg by 0 Active 25 MG tablet mouth 2 (two) times daily with breakfast and dinner. atorvastatin Take 20 mg by 0 Active (LIPITOR) 20 MG mouth daily. tablet irbesartan-hydrochlo Take 1 tablet 0 Active rothiazide (AVALIDE) by mouth 300-12.5 mg per daily. tablet SITagliptin-metFORMI Take 1 tablet 0 Active N (JANUMET) 50-1,000 by mouth 2 mg per tablet (two) times daily with breakfast and dinner. folic acid (FOLVITE) Take 1 tablet 90 tablet 3 04/19/2019 Active 1 MG tablet (1 mg total) 0 by mouth daily. ferrous sulfate 325 Take 1 tablet 60 tablet 2 04/18/2019 Active (65 FE) MG EC tablet (325 mg total) 0 by mouth 2 (two) times daily. cyclobenzaprine Take 1 tablet 30 tablet 1 07/05/2019 Active (FLEXERIL) 10 MG (10 mg total) 9 tablet by mouth every 8 (eight) hours as needed for Muscle spasms for up to 15 days. docusate sodium Take 1 capsule 30 capsule 0 07/05/2019 Active (COLACE) 100 MG (100 mg total) 9 capsule by mouth 2 (two) times daily for 15 days. omeprazole Take 1 capsule 30 capsule 0 07/05/2019 Active (PRILOSEC) 20 MG (20 mg total) capsule by mouth daily. omeprazole Take 20 mg by 0 Discontinued (PRILOSEC) 20 MG mouth daily. 9 capsule traMADol (ULTRAM) 50 Take 1 tablet 30 tablet 0 07/05/2019 Discontinued mg tablet (50 mg total) 9 by mouth every 6 (six) hours as needed for Pain for up to 7 days. Max Daily Amount: 200 mg omeprazole Take 1 capsule 30 capsule 0 07/05/2019 Discontinued (PRILOSEC) 20 MG (20 mg total) 9 capsule by mouth daily. cyclobenzaprine Take 1 tablet 30 tablet 1 07/05/2019 Discontinued (FLEXERIL) 10 MG (10 mg total) 9 tablet by mouth every 8 (eight) hours as needed for Muscle spasms for up to 15 days. docusate sodium Take 1 capsule 30 capsule 0 07/05/2019 Discontinued (COLACE) 100 MG (100 mg total) 9 capsule by mouth 2 (two) times daily for 15 days. ondansetron Take 1 tablet 20 tablet 0 07/05/2019 Discontinued (ZOFRAN-ODT) 4 MG (4 mg total) 9 disintegrating by mouth every tablet 8 (eight) hours as needed for Nausea for up to 7 days. traMADol (ULTRAM) 50 Take 1 tablet 30 tablet 0 07/05/2019 mg tablet (50 mg total) 9 by mouth every 6 (six) hours as needed for Pain for up to 7 days. Max Daily Amount: 200 mg ondansetron Take 1 tablet 20 tablet 0 07/05/2019 (ZOFRAN-ODT) 4 MG (4 mg total) 9 disintegrating by mouth every tablet 8 (eight) hours as needed for Nausea for up to 7 days. 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 Morbid obesity 07/05/2019 Benign essential hypertension 07/05/2019 GERD (gastroesophageal reflux disease) 07/05/2019 Acute GI bleeding 04/13/2019 Encounters Date Type Specialty Care Team Description 07/05/2019 Anesthesia Event Iftikhar Meek MD 07/05/2019 Surgery Jonathan Robertson MD LAPAROSCOPY,GASTRECTO MY 07/05/2019 [facility] General Internal Jonathan Robertson - Encounter Andrew Hudson MD 07/06/2019 07/04/2019 Hospital Pre-Admission Testing Resource, Oqmt Encounter Preadmit Phone 06/28/2019 [facility] Radiology Jonathan Robertson Malignant Encounter MD Tristan gastrointestinal stromal tumor (GIST) of other site (HCC) 06/27/2019 Outside Orders Central Scheduling Jonathan Robertson MD gastrointestinal stromal tumor (GIST) of other site (HCC) (Primary Dx) 04/18/2019 Travel 04/15/2019 Anesthesia Event Gastroenterology Ambrocio Mtz, PAYER SPECIALIST 04/15/2019 Surgery Gastroenterology Rafy Gallardo MD ENDOSCOPY,BIOPSY 04/14/2019 Anesthesia Event Gastroenterology Carina Acevedo, PAYER SPECIALIST 04/14/2019 Surgery Gastroenterology Ginny Askew UPPER MD ENDOSCOPY,POLYPECTOMY 04/13/2019 Hospital Intensive Care Umang, Acute GI bleeding; - Encounter Marco Acute blood loss anemia; 04/18/2019 MD Graham BEVERLEY (acute kidney injury) (HCC); Taylor Valderrama, Acute renal failure, unspecified acute renal failure type (HCC); Arhs Kilpatrick, Type 2 diabetes mellitus with stage 2 chronic kidney disease, without long-term current use of insulin (HCC); Gastric mass; Thanh Pino Gastrointestinal stromal tumor (GIST) (HCC) MD Jerry Morales III, Umar, MD Athreya, Khannan K., MD 04/13/2019 Telephone Pulmonology Umang, transfer Marco Stevenson MD after 2018 Social History Tobacco Use Types Packs/Day Years Used Date Never Smoker Smokeless Tobacco: Never Used Alcohol Use Drinks/Week oz/Week Comments Yes occasional Alcohol Habits Answer Date Recorded How often do you have a drink containing alcohol? 2-4 times a month 2018 How many drinks containing alcohol do you have on a 1 or 2 04/14/2019 typical day when you are drinking? How often do you have six or more drinks on one Never 04/14/2019 occasion? Education Answer Date Recorded What is the highest level of school you have High school graduate 04/14/2019 completed or the highest degree you have received? Financial Resource Strain Answer Date Recorded How hard is it for you to pay for the very basics like Not hard at all 2018 food, housing, medical care, and heating? Food Insecurity Answer Date Recorded Within the past 12 months, you worried that your food would Never true 2018 run out before you got money to buy more. Within the past 12 months, the food you bought just didn't Never true 2018 last and you didn't have money to get more. Transportation Needs Answer Date Recorded In the past 12 months, has lack of transportation kept you from No 04/14/2019 medical appointments or from getting medications? In the past 12 months, has lack of transportation kept you from No 04/14/2019 meetings, work, or getting things needed for daily living? Sex Assigned at Date Recorded Not on file Job Start Date Occupation Industry Not on file Not on file Not on file Travel History Travel Start Travel End No recent travel history available. Last Filed Vital Signs Vital Sign Reading Time Taken Blood Pressure 162/90 07/06/2019 9:00 AM CDT Pulse 86 07/06/2019 9:00 AM CDT Temperature 36.4 C (97.6 F) 07/06/2019 9:00 AM CDT Respiratory Rate 18 07/06/2019 9:00 AM CDT Oxygen Saturation 97% 07/06/2019 9:00 AM CDT Inhaled Oxygen Concentration - - Weight 137.3 kg (302 lb 11.1 oz) 07/05/2019 5:45 AM CDT Height 177.8 cm (5' 10") 07/05/2019 5:45 AM CDT Body Mass Index 43.43 07/05/2019 5:45 AM CDT Plan of Treatment Not on file Implants Implanted Type Area Manager Banking Device Shelf Model / Identifier Expiration Serial / Date Lot Seamguard Bioabsorbable Staple Line Reinforcement Black N/A: GORE 2020 [id number] / Implanted: Qty: 1 on 07/05/2019 by Jonathan Robertson MD Stomach / [id number] Seamguard Bioabsorbable Staple Line Reinforcement Green/Blue N/A: GORE 06/22/2021 [id number] / Implanted: Qty: 2 on 07/05/2019 by Jonathan Robertson MD Stomach / [id number] Procedures Procedure Name Priority Date/Time Associated Diagnosis Comments RHYTHM STRIP - SCAN 07/07/2019 10:40 AM CDT TRANSFUSION SERVICE 07/06/2019 6:00 REPORT - SCAN PM CDT POCT-GLUCOSE METER Routine 07/06/2019 9:19 Results for this AM CDT procedure are in the results section. CBC W/PLT COUNT & Routine 07/06/2019 4:58 Results for this AUTO DIFFERENTIAL AM CDT procedure are in the results section. PHOSPHORUS Routine 07/06/2019 4:58 Results for this AM CDT procedure are in the results section. MAGNESIUM Routine 07/06/2019 4:58 Results for this AM CDT procedure are in the results section. CBC W/PLT COUNT & Routine 07/06/2019 4:58 Results for this AUTO DIFFERENTIAL AM CDT procedure are in the results section. BASIC METABOLIC Routine 07/06/2019 4:58 Results for this PANEL (7) AM CDT procedure are in the results section. POCT-GLUCOSE METER Routine 07/06/2019 12:08 Results for this AM CDT procedure are in the results section. POCT-GLUCOSE METER Routine 07/05/2019 5:14 Results for this PM CDT procedure are in the results section. POCT-GLUCOSE METER Routine 07/05/2019 10:47 Results for this AM CDT procedure are in the results section. TISSUE EXAM AP Routine 07/05/2019 9:51 Results for this AM CDT procedure are in the results section. PROCEDURE W/ 07/05/2019 7:30 History of DAVINCI XI AM CDT gastrointestinal stromal tumor (GIST) Case Notes 2 HRS PER DAMIAN Special Needs (DAVINCI XI - XI REQUESTED) UPPER ENDOSCOPY 07/05/2019 7:30 AM CDT History of gastrointestinal stromal tumor (GIST) Case Notes 2 HRS PER DAMIAN Special Needs (DAVINCI XI - XI REQUESTED) ROBOTIC LAPAROSCOPY,GASTRECTOMY 07/05/2019 7:30 AM History of gastrointestinal CDT stromal tumor (GIST) Case Notes 2 HRS PER DAMIAN Special Needs (DAVINCI XI - XI REQUESTED) POCT-GLUCOSE METER Routine 07/05/2019 6:36 Results for AM CDT this procedure are in the results section. TYPE AND SCREEN, Routine 07/05/2019 6:09 Results for AUTOMATED AM CDT this procedure are in the results section. CT ABDOMEN/PELVIS Routine 06/28/2019 11:07 Malignant Results for WITH IV CONTRAST AM CDT gastrointestinal this procedure stromal tumor (GIST) are in the of other site (HCC) results section. POCT-CREATININE Routine 06/28/2019 10:25 Results for AM CDT this procedure are in the results section. RHYTHM STRIP - SCAN 04/20/2019 9:10 AM CDT POCT-GLUCOSE METER Routine 04/18/2019 11:40 Results for AM CDT this procedure are in the results section. POCT-GLUCOSE METER Routine 04/18/2019 6:32 Results for AM CDT this procedure are in the results section. CBC W/PLT COUNT & Routine 04/18/2019 4:25 Results for AUTO DIFFERENTIAL AM CDT this procedure are in the results section. CBC (HEMOGRAM ONLY) STAT 04/18/2019 4:25 Results for AM CDT this procedure are in the results section. CBC W/PLT COUNT & Routine 04/18/2019 4:25 Results for AUTO DIFFERENTIAL AM CDT this procedure are in the results section. BASIC METABOLIC PANEL STAT 04/18/2019 4:25 Results for (7) AM CDT this procedure are in the results section. MAGNESIUM STAT 04/18/2019 4:25 Results for AM CDT this procedure are in the results section. POCT-GLUCOSE METER Routine 04/18/2019 12:32 Results for AM CDT this procedure are in the results section. POCT-GLUCOSE METER Routine 04/17/2019 6:16 Results for PM CDT this procedure are in the results section. TRANSFUSION SERVICE 04/17/2019 6:00 REPORT - SCAN PM CDT CBC (HEMOGRAM ONLY) STAT 04/17/2019 4:13 Results for PM CDT this procedure are in the results section. POCT-GLUCOSE METER Routine 04/17/2019 12:32 Results for PM CDT this procedure are in the results section. POCT-GLUCOSE METER Routine 04/17/2019 5:52 Results for AM CDT this procedure are in the results section. BASIC METABOLIC PANEL STAT 04/17/2019 5:32 Results for (7) AM CDT this procedure are in the results section. MAGNESIUM STAT 04/17/2019 5:32 Results for AM CDT this procedure are in the results section. CBC W/PLT COUNT & Routine 04/17/2019 4:45 Results for AUTO DIFFERENTIAL AM CDT this procedure are in the results section. CBC W/PLT COUNT & Routine 04/17/2019 4:45 Results for AUTO DIFFERENTIAL AM CDT this procedure are in the results section. PREPARE LEUKO-REDUCED Routine 04/17/2019 1:26 Results for RBC AM CDT this procedure are in the results section. POCT-GLUCOSE METER Routine 04/16/2019 11:45 Results for PM CDT this procedure are in the results section. CBC (HEMOGRAM ONLY) STAT 04/16/2019 11:05 Results for PM CDT this procedure are in the results section. CBC (HEMOGRAM ONLY) STAT 04/16/2019 10:38 Results for PM CDT this procedure are in the results section. TRANSFUSION SERVICE 04/16/2019 6:01 REPORT - SCAN PM CDT POCT-GLUCOSE METER Routine 04/16/2019 5:53 Results for PM CDT this procedure are in the results section. CBC (HEMOGRAM ONLY) STAT 04/16/2019 5:23 Results for PM CDT this procedure are in the results section. REPORT OF PROCEDURE - 04/16/2019 1:23 ENDOSCOPY URL PM CDT POCT-GLUCOSE METER Routine 04/16/2019 11:54 Results for AM CDT this procedure are in the results section. VANCOMYCIN LEVEL, Timed 04/16/2019 9:58 Results for TROUGH AM CDT this procedure are in the results section. CBC (HEMOGRAM ONLY) STAT 04/16/2019 9:58 Results for AM CDT this procedure are in the results section. POCT-GLUCOSE METER Routine 04/16/2019 6:55 Results for AM CDT this procedure are in the results section. CBC W/PLT COUNT & Routine 04/16/2019 5:09 Results for AUTO DIFFERENTIAL AM CDT this procedure are in the results section. CBC W/PLT COUNT & Routine 04/16/2019 5:09 Results for AUTO DIFFERENTIAL AM CDT this procedure are in the results section. PT/APTT Routine 04/16/2019 5:09 Results for AM CDT this procedure are in the results section. PROTHROMBIN TIME/INR Routine 04/16/2019 5:09 Results for AM CDT this procedure are in the results section. FIBRINOGEN Routine 04/16/2019 5:09 Results for AM CDT this procedure are in the results section. BASIC METABOLIC PANEL STAT 04/16/2019 5:09 Results for (7) AM CDT this procedure are in the results section. MAGNESIUM STAT 04/16/2019 5:09 Results for AM CDT this procedure are in the results section. POCT-GLUCOSE METER Routine 04/16/2019 12:02 Results for AM CDT this procedure are in the results section. PREPARE LEUKO-REDUCED Routine 04/15/2019 11:54 Results for RBC PM CDT this procedure are in the results section. CBC (HEMOGRAM ONLY) STAT 04/15/2019 10:22 Results for PM CDT this procedure are in the results section. TRANSFUSION SERVICE 04/15/2019 6:03 REPORT - SCAN PM CDT POCT-GLUCOSE METER Routine 04/15/2019 6:02 Results for PM CDT this procedure are in the results section. RETICULOCYTE COUNT STAT 04/15/2019 3:38 Results for PM CDT this procedure are in the results section. CBC (HEMOGRAM ONLY) STAT 04/15/2019 3:38 Results for PM CDT this procedure are in the results section. FINE NEEDLE ASPIRATE Routine 04/15/2019 3:01 Results for (FNA) REQUEST PM CDT this procedure are in the results section. FINE NEEDLE AP Routine 04/15/2019 3:01 Results for ASPIRATION BY PM CDT this procedure CLINICIAN are in the results section. TISSUE EXAM AP Routine 04/15/2019 2:39 Results for PM CDT this procedure are in the results section. UPPER 04/15/2019 2:00 Gastric mass ENDOSCOPY,BIOPSY PM CDT CBC W/PLT COUNT & Routine 04/15/2019 1:10 Results for AUTO DIFFERENTIAL PM CDT this procedure are in the results section. CBC W/PLT COUNT & Routine 04/15/2019 1:10 Results for AUTO DIFFERENTIAL PM CDT this procedure are in the results section. PERIPHERAL BLOOD Routine 04/15/2019 1:10 Results for SMEAR - PATHOLOGIST PM CDT this procedure REVIEW are in the results section. PROTHROMBIN TIME/INR STAT 04/15/2019 1:09 Results for PM CDT this procedure are in the results section. FIBRINOGEN STAT 04/15/2019 1:09 Results for PM CDT this procedure are in the results section. LACTATE DEHYDROGENASE STAT 04/15/2019 1:09 Results for (LDH) PM CDT this procedure are in the results section. HAPTOGLOBIN STAT 04/15/2019 1:09 Results for PM CDT this procedure are in the results section. POCT-GLUCOSE METER Routine 04/15/2019 12:07 Results for PM CDT this procedure are in the results section. ECG 12-LEAD Routine 04/15/2019 9:08 Results for AM CDT this procedure are in the results section. (CELLAVISION MANUAL Routine 04/15/2019 8:19 Results for DIFF) AM CDT this procedure are in the results section. CBC W/PLT COUNT & Routine 04/15/2019 8:19 Results for AUTO DIFFERENTIAL AM CDT this procedure are in the results section. MAGNESIUM Routine 04/15/2019 8:19 Results for AM CDT this procedure are in the results section. BASIC METABOLIC PANEL Routine 04/15/2019 8:19 Results for (7) AM CDT this procedure are in the results section. CBC W/PLT COUNT & Routine 04/15/2019 8:19 Results for AUTO DIFFERENTIAL AM CDT this procedure are in the results section. POCT-GLUCOSE METER Routine 04/15/2019 6:32 Results for AM CDT this procedure are in the results section. TRANSFUSE Routine 04/15/2019 5:50 LEUKO-REDUCED RED AM CDT BLOOD CELLS US ABDOMEN COMPLETE Routine 04/15/2019 5:25 Results for AM CDT this procedure are in the results section. PREPARE LEUKO-REDUCED Routine 04/14/2019 11:54 Results for RBC PM CDT this procedure are in the results section. CBC (HEMOGRAM ONLY) STAT 04/14/2019 11:34 Results for PM CDT this procedure are in the results section. POCT-GLUCOSE METER Routine 04/14/2019 6:33 Results for PM CDT this procedure are in the results section. BLOOD CULTURE LISA 04/14/2019 6:08 Results for PM CDT this procedure are in the results section. CBC (HEMOGRAM ONLY) STAT 04/14/2019 6:07 Results for PM CDT this procedure are in the results section. TRANSFUSION SERVICE 04/14/2019 6:02 REPORT - SCAN PM CDT TRANSFUSE Routine 04/14/2019 2:06 LEUKO-REDUCED RED PM CDT BLOOD CELLS REPORT OF PROCEDURE - 04/14/2019 2:01 ENDOSCOPY URL PM CDT POCT-GLUCOSE METER Routine 04/14/2019 11:22 Results for AM CDT this procedure are in the results section. TISSUE EXAM AP Routine 04/14/2019 10:05 Results for AM CDT this procedure are in the results section. XR CHEST 1 VIEW LISA 04/14/2019 9:13 Results for PORTABLE/BEDSIDE AM CDT this procedure are in the results section. UPPER 04/14/2019 9:00 Melena ENDOSCOPY,POLYPECTOMY AM CDT VITAMIN B12 AND Routine 04/14/2019 8:43 Results for FOLATE AM CDT this procedure are in the results section. FERRITIN Routine 04/14/2019 8:43 Results for AM CDT this procedure are in the results section. IRON, TIBC, % SAT. Routine 04/14/2019 8:43 Results for (WITHOUT FERRITIN) AM CDT this procedure are in the results section. BLOOD CULTURE Routine 04/14/2019 8:43 Results for IDENTIFICATION PANEL AM CDT this procedure are in the results section. BLOOD CULTURE LISA 04/14/2019 8:43 Results for AM CDT this procedure are in the results section. URINALYSIS W/ REFLEX Routine 04/14/2019 8:42 Results for URINE CULTURE AM CDT this procedure are in the results section. CBC (HEMOGRAM ONLY) STAT 04/14/2019 8:42 Results for AM CDT this procedure are in the results section. TRANSFUSE Routine 04/14/2019 5:06 LEUKO-REDUCED RED AM CDT BLOOD CELLS CBC W/PLT COUNT & STAT 04/14/2019 2:59 Results for AUTO DIFFERENTIAL AM CDT this procedure are in the results section. CBC W/PLT COUNT & STAT 04/14/2019 2:59 Results for AUTO DIFFERENTIAL AM CDT this procedure are in the results section. BASIC METABOLIC PANEL STAT 04/14/2019 2:59 Results for (7) AM CDT this procedure are in the results section. LACTIC ACID, VENOUS STAT 04/14/2019 2:59 Results for AM CDT this procedure are in the results section. ABORH, MANUAL STAT 04/13/2019 9:36 Results for PM CDT this procedure are in the results section. (CELLAVISION MANUAL STAT 04/13/2019 9:07 Results for DIFF) PM CDT this procedure are in the results section. CBC W/PLT COUNT & STAT 04/13/2019 9:07 Results for AUTO DIFFERENTIAL PM CDT this procedure are in the results section. LACTIC ACID, VENOUS STAT 04/13/2019 9:07 Results for PM CDT this procedure are in the results section. PROTHROMBIN TIME/INR Routine 04/13/2019 9:07 Results for PM CDT this procedure are in the results section. PT/APTT STAT 04/13/2019 9:07 Results for PM CDT this procedure are in the results section. CBC W/PLT COUNT & STAT 04/13/2019 9:07 Results for AUTO DIFFERENTIAL PM CDT this procedure are in the results section. COMPREHENSIVE STAT 04/13/2019 9:07 Results for METABOLIC PANEL PM CDT this procedure are in the results section. TYPE AND SCREEN, STAT 04/13/2019 9:03 Results for AUTOMATED PM CDT this procedure are in the results section. after 2018 Results RHYTHM STRIP - SCAN (07/07/2019 10:40 AM CDT)Only the most recent of2 resultswithin the time period is included. Narrative Performed At TRANSFUSION SERVICE REPORT - SCAN (07/06/2019 6:00 PM CDT)Only the most recent of5 resultswithin the time period is included. Narrative Performed At POC-Glucose meter (07/06/2019 9:19 AM CDT)Only the most recent of21 resultswithin the time period is included. POC-Glucose Meter 127 (H)Comment: TESTED AT 70 - 110 mg/dL [facility] [address] [facility] [address] Specimen Blood Performing Organization Address City/State/Zipcode Phone Number [place] [phone] CENTER CBC with platelet count + automated diff (07/06/2019 4:58 AM CDT)Only the most recent of8 resultswithin the time period is included. WBC 14.3 (H) 3.5 - 10.5 K/L [facility] RBC 5.77 4.63 - 6.08 M/L [facility] Hemoglobin 13.2 (L) 13.7 - 17.5 GM/DL [facility] Hematocrit 42.9 40.1 - 51.0 % [facility] MCV 74.4 (L) 79.0 - 92.2 fL [facility] MCH 22.9 (L) 25.7 - 32.2 pg [facility] MCHC 30.8 (L) 32.3 - 36.5 GM/DL [facility] RDW 21.8 (H) 11.6 - 14.4 % [facility] Platelets 149 (L) 150 - 450 K/CU MM [facility] MPV Comment: Unable to 9.4 - 12.4 fL [facility] report due to abnormal [facility] Platelet population distribution. nRBC 0 0 - 0 /100 WBC [facility] % Neutros 83 % [facility] % Lymphs 7 % [facility] % Monos 10 % [facility] % Eos 0 % [facility] % Baso 0 % [facility] # Neutros 11.81 (H) 1.78 - 5.38 K/L [facility] # Lymphs 0.97 (L) 1.32 - 3.57 K/L [facility] # Monos 1.40 (H) 0.30 - 0.82 K/L [facility] # Eos 0.00 (L) 0.04 - 0.54 K/L [facility] # Baso 0.01 0.01 - 0.08 K/L [facility] Immature 0 0 - 1 % [facility] Granulocytes-Relative [facility] Specimen Blood Performing Organization Address City/State/Zipcode Phone Number [facility] [address] [place] [address] CENTER Phosphorus (07/06/2019 4:58 AM CDT) Phosphorus 4.2 2.3 - 4.7 mg/dL [facility] Specimen Blood Performing Organization Address City/State/Zipcode Phone Number [facility] [address] [place] [address] CENTER Magnesium (07/06/2019 4:58 AM CDT)Only the most recent of5 resultswithin the time period is included. Magnesium 1.6 1.6 - 2.6 mg/dL [facility] Specimen Blood Performing Organization Address City/[facility] Phone Number [address] [address] [place] Basic Metabolic Panel (07/06/2019 4:58 AM CDT)Only the most recent of6 resultswithin the time period is included. Sodium 137 136 - 145 meq/L [facility] Potassium 4.3 3.5 - 5.1 meq/L [facility] Chloride 107 98 - 107 meq/L [facility] CO2 24 22 - 29 meq/L [facility] BUN 16 7 - 21 mg/dL [facility] Creatinine 1.14 0.57 - 1.25 mg/dL [facility] Glucose 118 (H) 70 - 105 mg/dL [facility] Calcium 8.4 8.4 - 10.2 mg/dL [facility] EGFR 82Comment: ESTIMATED GFR IS mL/min/1.73 sq m [facility] NOT ACCURATE CREATININE [facility] CLEARANCE IN PREDICTING GLOMERULAR FILTRATION RATE. ESTIMATED GFR IS NOT APPLICABLE FOR DIALYSIS PATIENTS. Specimen Blood Performing Organization Address City/[facility] Phone Number [address] [phone] [place] Tissue Exam (07/05/2019 9:51 AM CDT)Only the most recent of3 resultswithin the time period is included. Case Report Surgical Pathology Report Case: [id number] [facility] Authorizing Provider:Jonathan Robertson MDCollected: 07/05/2019 0951 [facility] Ordering Location: [facility] PERIOPERATIVE Received: 07/05/2019 1108 SERVICES Pathologist: Diana Persaud MD Specimen:Stomach, Partial gastrectomy DIAGNOSIS STOMACH, PARTIAL GASTRECTOMY [facility] - GASTROINTESTINAL STROMAL TUMOR, EPITHELIOID TYPE, UNIFOCAL [facility] - GREATEST DIMENSION: 6.5 CM - PERIPHERAL AND DEEP MARGINS FREE ~ CLOSEST PERIPHERAL MARGIN 1.0 CM - HISTOLOGIC GRADE: LOW GRADE, MITOTIC RATE < 5 /5 MM2 - FOCAL NECROSIS IDENTIFIED (1% AREA) - CD117 (C-KIT) AND DOG1 IMMUNOHISTOCHEMICAL STAINS POSITIVE - RISK ASSESSMENT: LOW RISK (RISK OF PROGRESSIVE DISEASE IS 3.6%) - PATHOLOGIC STAGE CLASSIFICATION (pTNM, AJCC 8th Edition) : pT3 - ADDITIONAL FINDINGS: ~ CHRONIC INACTIVE GASTRITIS, MILD ~ HYPERPLASTIC POLYP - SEE SYNOPTIC REPORT Signing Pathologist Direct Phone Line: [phone] SYNOPTIC REPORT GASTROINTESTINAL STROMAL TUMOR (GIST): Resection(GIST Res - A) [facility] CLINICAL Preresection Treatment:No known preresection therapy SPECIMEN Procedure:Resection Type:Partial gastrectomy TUMOR Tumor Site:Stomach :Body of stomach Histologic Type:Gastrointestinal stromal tumor, epithelioid type Histologic Grade:G1: Low grade; mitotic rate <=5 / 5mm2 Tumor Size:Greatest dimension in Centimeters (cm): 6.5 Centimeters (cm) Additional Dimension in Centimeters (cm):4.5 Centimeters (cm ) Additional Dimension in Centimeters (cm):5 Centimeters (cm) Tumor Focality:Unifocal Accessory Findings: Mitotic Rate:1 mitoses per 5 mm2 Necrosis:Present Extent:1 % Risk Assessment:Low risk Treatment Effect:No known presurgical therapy MARGINS Margins:Uninvolved by GIST Distance of Tumor from Closest Margin:1.0 Centimeters (cm) LYMPH NODES Regional Lymph Nodes:No lymph nodes submitted or found PATHOLOGIC STAGE CLASSIFICATION (pTNM, AJCC 8th Edition) Primary Tumor (pT):pT3 ADDITIONAL FINDINGS Additional Pathologic Findings:Chronic inactive gastritis, mild , hyperplastic polyp SPECIAL STUDIES Immunohistochemical Studies:KIT (CD117) KIT (CD117):Positive Immunohistochemical Studies: DOG1 (ANO1):Positive Molecular Genetic Studies:Not performed CPT Code(s) 04387, 40120, 25589 [facility] SPECIMEN SOURCE Stomach, description partial [facility] gastrectomy [facility] GROSS DESCRIPTION The specimen is received in one container labeled with the patient's name and MR number corresponding to the requisition slip with the same information. [facility] Received in formalin labeled "stomach" with the description of "partial gastrectomy" is a stapled specimen, on opening is 15 cm x 15 cm in greatest diamension. There is a 6.5 x 4.5 x 5.0cm soft mucosal tumor. The lesion is davila-brown, well-defined and covered with brown mucosa showing 1 cm in greatest dimension overlying circular mucosal polyp. The mass is 1.0 cm from the closest peripheral margin. The tumor is serially sectioned from one end into 11 slices. The cut sections of the mass shows a well-circumscribed, davila-pink to red, submucosal lesion. Focal areas of hemorrhage are identified. No necros is is identified. The closest tumor to the margin is in slices #8 and 9. The specimen was submitted as follows: A1, mucosal lesion on top of the tumor trisected; A2, slice #1 computer help desk representative section; A3, A4, slice #2 computer help desk representative sections; A5, A6, slice #3, computer help desk representative sections; A7, slice #3 area of hemorrhage; A8, A9, slice #4 computer help desk representative section; A10 through A12 slice #5 computer help desk representative sectio ns to include area of hemorrhage and A12, A13 and A14 slice #6 computer help desk representative sections; A15 and A16, slice #7, computer help desk representative sections to include area of hemorrhage in A16; A17, A18, slices 8 and 9 clos est lesion to inked blue margin; A19, slice #8 additional computer help desk representative sections; A20, slice #9 central section to include hemorrhage and smooth possible cystic area; A21, A22, slice #10 computer help desk representative sections; A23, slice #11 computer help desk representative section; A24, small bowel uninvolved computer help desk representative section. MA/ew SPECIAL STUDIES The interpretation of this case included the use of immunohistochemistry or special stains on A12. [facility] DOG1-positive [facility] [id number] Control Slides Examined: In-house known positive controls were evaluated along with the test tissue. These control slides run alongside of the patients sample show appropriate staining. Internal posit nevaeh and negative controls when available are evaluated Immunohistochemistry technical testing was performed at [facility], Pathology Laboratory where it was developed and its performance characteristics were determined. It has not be en cleared or approved by the U.S. Food and Drug Administration. The FDA has determined that such clearance or approval is not necessary. The test is used for clinical purposes. It should not be regarde d as investigational or for research. This laboratory is certified under the Clinical Laboratory Improvement Amendments of 1988 (CLIA-88) as qualified to perform high complexity clinical laboratory testing. Specimen Tissue Performing Organization Address City/State/Zipcode Phone Number [facility] [address] [place] [address] CENTER Type and screen, automated (07/05/2019 6:09 AM CDT)Only the most recent of2 resultswithin the time period is included. ABO/RH AUTOMATED (BEAKER) A POSITIVE [facility] Ab Scrn NEGATIVE [facility] Specimen Blood Performing Organization Address City/[facility]/Zipcode Phone Number [facility] [address] [place] [address] CT Abdomen/Pelvis with IV Contrast (06/28/2019 11:07 AM CDT) Specimen Narrative Performed At FINAL REPORT [employer] TECHNIQUE: CT of the abdomen and pelvis WITH intravenous contrast and WITH oral contrast. Dose modulation, iterative reconstruction, and/or weight-based adjustment of the mA/kV was utilized to reduce the radiation dose to as low as reasonably achievable. 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 COMPARISON: None. FINDINGS: LOWER THORAX: Unremarkable. HEPATOBILIARY: No focal hepatic lesions. Gallbladder is unremarkable. No biliary ductal dilatation. SPLEEN: No splenomegaly. PANCREAS: No focal masses or ductal dilatation. ADRENALS: No adrenal nodules. KIDNEYS/URETERS: No hydronephrosis, stones, or solid mass lesions. PELVIC ORGANS/BLADDER: Unremarkable. PERITONEUM/RETROPERITONEUM: No free air or fluid. LYMPH NODES: No lymphadenopathy. Nonspecific 0.9 cm lymph node adjacent to the distal gastric body. VESSELS: Unremarkable. GI TRACT: 5.7 x 6.1 x 5.7 cm heterogeneously enhancing mass centered in the gastric body. No bowel obstruction. Normal appendix. BONES AND SOFT TISSUES: Degenerative changes of the visualized spine. Soft tissues are unremarkable. IMPRESSION: 6.1 cm gastric body mass. No other suspicious lesions in the abdomen or pelvis. Nonspecific subcentimeter lymph node adjacent to the distal gastric body. Signed: Cindy Tsang MD Report Verified Date/Time:06/28/2019 15:17:50 Reading Location: [facility] C013Y CT Body Reading Room Procedure Note Interface, External Ris In - 06/28/2019 3:20 PM CDT FINAL REPORT TECHNIQUE: CT of the abdomen and pelvis WITH intravenous contrast and WITH oral contrast. Dose modulation, iterative reconstruction, and/or weight-based adjustment of the mA/kV was utilized to reduce the radiation dose to as low as reasonably achievable. 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 COMPARISON: None. FINDINGS: LOWER THORAX: Unremarkable. HEPATOBILIARY: No focal hepatic lesions. Gallbladder is unremarkable. No biliary ductal dilatation. SPLEEN: No splenomegaly. PANCREAS: No focal masses or ductal dilatation. ADRENALS: No adrenal nodules. KIDNEYS/URETERS: No hydronephrosis, stones, or solid mass lesions. PELVIC ORGANS/BLADDER: Unremarkable. PERITONEUM/RETROPERITONEUM: No free air or fluid. LYMPH NODES: No lymphadenopathy. Nonspecific 0.9 cm lymph node adjacent to the distal gastric body. VESSELS: Unremarkable. GI TRACT: 5.7 x 6.1 x 5.7 cm heterogeneously enhancing mass centered in the gastric body. No bowel obstruction. Normal appendix. BONES AND SOFT TISSUES: Degenerative changes of the visualized spine. Soft tissues are unremarkable. IMPRESSION: 6.1 cm gastric body mass. No other suspicious lesions in the abdomen or pelvis. Nonspecific subcentimeter lymph node adjacent to the distal gastric body. Signed: Cindy Tsang MD Report Verified Date/Time: 06/28/2019 15:17:50 Reading Location: [facility] C013Y CT Body Reading Room Performing Organization Address City/State/Zipcode Phone Number [employer] ([employer] POC-Creatinine (06/28/2019 10:25 AM CDT) POC-Creatinine 1.0Comment: TESTED AT 0.6 - 1.3 mg/dL [facility] [address] [place] [address] POC-EGFR 95 mL/min/1.73M2 [facility] Specimen Blood Performing Organization Address City/[facility]/Zipcode Phone Number [facility] [address] [place], [place] [phone] CENTER CBC (Hemogram only) (04/18/2019 4:25 AM CDT)Only the most recent of11 resultswithin the time period is included. WBC 11.8 (H) 3.5 - 10.5 K/L [facility] RBC 2.97 (L) 4.63 - 6.08 M/L [facility] Hemoglobin 7.5 (L) 13.7 - 17.5 GM/DL [facility] Hematocrit 23.5 (L) 40.1 - 51.0 % [facility] MCV 79.1 79.0 - 92.2 fL [facility] MCH 25.3 (L) 25.7 - 32.2 pg [facility] MCHC 31.9 (L) 32.3 - 36.5 GM/DL [facility] RDW 19.1 (H) 11.6 - 14.4 % [facility] Platelets 151 150 - 450 K/CU MM [facility] MPV 11.3 9.4 - 12.4 fL [facility] nRBC 1 (H) 0 - 0 /100 WBC [facility] Specimen Blood Performing Organization Address City/State/Zipcode Phone Number [facility] [address] [place] [address] [phone] CENTER Prepare Leuko-Red RBC (04/17/2019 1:26 AM CDT)Only the most recent of3 resultswithin the time period is included. CROSSMATCH COMPATIBLE [facility]AFET[facility]ACE TX Unit ABO A Pos [facility] TX UNIT NUMBER [id number] [facility] [place] Status TX_TIMEINCHART [facility] [place] Blood Bank Product RED BLOOD CELLS [facility] [place] PRODUCT CODE [id number] [facility] [place] Specimen Other Performing Organization Address [facility] Phone Number [facility] TX REPORT OF PROCEDURE - ENDOSCOPY URL (04/16/2019 1:23 PM CDT) Narrative Performed At Vancomycin level, trough (04/16/2019 9:58 AM CDT) Vancomycin Tr 9.7 (L) 10.0 - 20.0 ug/mL [facility] Specimen Blood Performing Organization Address [facility] Phone Number [address] [address] CENTER PT/aPTT (04/16/2019 5:09 AM CDT)Only the most recent of2 resultswithin the time period is included. Protime 14.2 11.7 - 14.7 seconds [facility] INR 1.2 <=5.9 [facility] PTT 25.6 22.5 - 36.0 seconds [facility] Specimen Blood Narrative Performed At RECOMMENDED COUMADIN/WARFARIN INR THERAPY [facility] RANGES STANDARD DOSE: 2.0 - 3.0 Includes: PROPHYLAXIS for venous thrombosis, systemic embolization; TREATMENT for venous thrombosis and/or pulmonary embolus. HIGH RISK: Target INR is 2.5-3.5 for patients with mechanical heart valves. Performing Organization Address [facility] Phone Number [facility] [address] [place] [address] [phone] CENTER Prothrombin time/INR (04/16/2019 5:09 AM CDT)Only the most recent of3 resultswithin the time period is included. Protime 14.2 11.7 - 14.7 seconds [facility] INR 1.2 <=5.9 [facility] Specimen Blood Narrative Performed At RECOMMENDED COUMADIN/WARFARIN INR THERAPY [facility] RANGES STANDARD DOSE: 2.0 - 3.0 Includes: PROPHYLAXIS for venous thrombosis, systemic embolization; TREATMENT for venous thrombosis and/or pulmonary embolus. HIGH RISK: Target INR is 2.5-3.5 for patients with mechanical heart valves. Performing Organization Address [facility] Phone Number [address] [address] CENTER Fibrinogen (04/16/2019 5:09 AM CDT)Only the most recent of2 resultswithin the time period is included. Fibrinogen 300 225 - 434 mg/dl [facility] Specimen Blood Performing Organization Address [facility] Phone Number [address] [address] CENTER Reticulocyte count (04/15/2019 3:38 PM CDT) % Retic 5.9 (H) 0.5 - 1.8 % [facility] Specimen Blood Performing Organization Address [facility] Phone Number [address] [address] [place] FINE NEEDLE ASPIRATE (FNA) REQUEST (04/15/2019 3:01 PM CDT) Cytology See Separate Report [facility] Specimen Fine Needle Aspirate Performing Organization Address [facility] Phone Number [address] [address] [phone] CENTER Fine Needle Aspirate by Clinician (04/15/2019 3:01 PM CDT) Case Report Medical Cytology Report Case: [id number] [facility] Authorizing Provider:Rafy Gallardo MDCollected: 04/15/2019 1501 [facility] Ordering Location: [place] [address] ICUReceived: 04/15/2019 5489 Pathologist: Gavi Bowen MD Specimen:Biopsy, Gastric, gastric body mass DIAGNOSIS GASTRIC BODY MASS FNA BY CLINICIAN (CYTOSPINS AND CELL BLOCK OF ASPIRATE): [facility] - GASTROINTESTINAL STROMAL TUMOR, EPITHELIOID TYPE (SEE COMMENT) [facility] Signing Pathologist Direct Phone Line: [phone] COMMENT Cell block sections show [facility] predominantly [facility] epithelioid/plasmacytoid cell proliferation, with myxoid background and focally more pronounced nuclear atypia. No significantly increased mitotic figures or necrosis are seen. Immunostains performed on cell block sections show tumor cells to be positive for DOG1 and CD117, while negative for CAM5.2 and synaptophysin. Taken together, the findings are most supportive of the above diagnosis. CPT Code(s) 71095, 86507, 60327, 54335 x 3 [facility] CLINICAL DATA (5.2 X 5.6 cm) round lesion in [facility] the fundus of the stomach [facility] SPECIMEN SOURCE GASTRIC BODY MASS FNA [facility] GROSS DESCRIPTION 15 mls in cytorich red; 4 cytospins, cell block [facility] Collected: [id number] [facility] Received: [id number] SPECIAL STUDIES The interpretation of this case included the use of immunohistochemistry or special stains. [facility] Control Slides Examined: In-house known positive controls were evaluated along with the test tissue. These control slides run alongside of the patients sample show appropriate staining. Internal posit nevaeh and negative controls when available are evaluated Immunohistochemistry technical testing was performed at [facility], Pathology Laboratory where it was developed and its performance characteristics were determined. It has not be en cleared or approved by the U.S. Food and Drug Administration. The FDA has determined that such clearance or approval is not necessary. The test is used for clinical purposes. It should not be regarde d as investigational or for research. This laboratory is certified under the Clinical Laboratory Improvement Amendments of 1988 (CLIA-88) as qualified to perform high complexity clinical laboratory testing. Gross assessment was [facility] performed at Center, Department of [facility] Pathology, [address] [place] [address], [place] [address], Technical component was [facility] performed at [place], Department of [facility] Pathology, [address] [place] [address], Professional component [facility] was performed at [place], Department of [facility] Pathology, [address] [place] [address], Specimen Fine Needle Aspirate Narrative Performed At Performing Organization Address City/[facility] Cent[facility]ode Phone Number [address] [address] [phone] [place] Peripheral Blood Smear - Path Review (04/15/2019 1:10 PM CDT) RBC Morphology Polychromasia [facility] Poikilocytosis [facility] Anisocytosis Microcytosis Pathologist Review Cell counts confirmed. [facility] Pathologist: Sachi Mann M.D. [facility] (electronic signature) [facility] Specimen Blood Performing Organization Address [facility] Phone Number [address] [address] [phone] [place] Lactate dehydrogenase (LDH) (04/15/2019 1:09 PM CDT) LDH 243 (H)Comment: Specimen 125 - 220 U/L [facility] slightly hemolyzed [facility] Specimen Blood Performing Organization Address [facility] Cent[facility]ode Phone Number [address] [address] [place] Haptoglobin (04/15/2019 1:09 PM CDT) Haptoglobin 211 14 - 258 mg/dL [facility] Specimen Blood Performing Organization Address [facility] Cent[facility]ode Phone Number [address] [address] [place] ECG 12 lead (04/15/2019 9:08 AM CDT) Specimen Narrative Performed At Ventricular Rate 88 BPM GE MUSE Atrial Rate 88 BPM P-R Interval 136 ms QRS Duration 98 ms Q-T Interval 398 ms QTC Calculation(Bazett) 481 ms P [place] 13 degrees R [place] 30 degrees T [place] 32 degrees Normal sinus rhythm Prolonged QT Abnormal ECG No previous ECGs available Confirmed by MD Blanchard Roberto ([id number]) on 04/15/2019 1:33:51 PM Procedure Note Interface, External Ris In - 04/15/2019 1:33 PM CDT Ventricular Rate 88 BPM Atrial Rate 88 BPM P-R Interval 136 ms QRS Duration 98 ms Q-T Interval 398 ms QTC Calculation(Bazett) 481 ms P [place] 13 degrees R [place] 30 degrees T [place] 32 degrees Normal sinus rhythm Prolonged QT Abnormal ECG No previous ECGs available Confirmed by MD Blanchard Roberto ([id number]) on 04/15/2019 1:33:51 PM Performing Organization Address City/State/Zipcode Phone Number GE MUSE Manual Differential (04/15/2019 8:19 AM CDT)Only the most recent of2 resultswithin the time period is included. % Neutros 86 % [facility] % Lymphs 5 % [facility] % Monos 3 % [facility] % Myelo 1 (H) 0 - 0 % [facility] % Bands 5 0 - 10 % [facility] # Neutros 12.13 (H) 1.78 - 5.38 K/ul [facility] # Lymphs 0.71 (L) 1.32 - 3.57 K/ul [facility] # Monos 0.42 0.30 - 0.82 K/uL [facility] # Myelo 0.14 (H) 0.00 - 0.00 K/uL [facility] # Bands 0.71 0.00 - 0.80 K/uL [facility] Total Counted 100 [facility] WBC Morphology Normal [facility] Giant Platelet Present [facility] Polychromasia 2+ moderate [facility] Anisocytosis 3+ many [facility] Microcytes 2+ moderate [facility] Poikilocytes 1+ few [facility] Schistocytes 1+ few [facility] Spherocytes 1+ few [facility] Elliptocytes 1+ few [facility] Artifact Present [facility] Platelet Conc Decreased [facility] Specimen Blood Narrative Performed At Received comment: [facility] User comments: Slide comments: Performing Organization Address City/State/Zipcode Phone Number [facility] [address] [place] [address] CENTER Transfuse Leuko-Red RBC (04/15/2019 5:50 AM CDT)Only the most recent of6 resultswithin the time period is included.US abdomen complete (04/15/2019 5:25 AM CDT) Specimen Narrative Performed At FINAL REPORT [employer] Abdominal ultrasound dated 04/15/2019 Clinical information:thrombocytopenia Comment:Real-time transabdominal ultrasound was performed. Liver is normal in size and measures 15.9 cm in length. The echogenicity of the liver is increased.No focal lesion is noted in the liver.Spleen is normal in size without focal abnormality. Gallbladder is contracted. No gallstone is present. No biliary dilatation is seen. Common bile duct measures 4 mm in diameter.Main portal vein measures 11 mm in diameter. Pancreas is suboptimally visualized. Right kidney measures 11.2 x 5.4 x 5.6 cm.Left kidney measures 10.6 x 5.7 x 5.6 cm.Echogenicity of both kidney is normal.No hydronephrosis or solid mass seen in either kidney.No cystis seen in the either kidney. No ascites is present in the abdomen. Abdominal aorta is normal in caliber. IVC and Hepatic veins are patent. Impression: 1. Echogenic liver suggestive of diffuse liver parenchymal disease such as fatty hepatic infiltrate. 2. Incomplete visualization the pancreas secondary to overlying gas. Signed: Cathleen Triplett MD Report Verified Date/Time:04/15/2019 08:59:37 Reading Location: [facility] P006J Ultrasound Reading Room Procedure Note Interface, External Ris In - 04/15/2019 9:01 AM CDT FINAL REPORT Abdominal ultrasound dated 04/15/2019 Clinical information:thrombocytopenia Comment: Real-time transabdominal ultrasound was performed. Liver is normal in size and measures 15.9 cm in length. The echogenicity of the liver is increased. No focal lesion is noted in the liver. Spleen is normal in size without focal abnormality. Gallbladder is contracted. No gallstone is present. No biliary dilatation is seen. Common bile duct measures 4 mm in diameter. Main portal vein measures 11 mm in diameter. Pancreas is suboptimally visualized. Right kidney measures 11.2 x 5.4 x 5.6 cm. Left kidney measures 10.6 x 5.7 x 5.6 cm. Echogenicity of both kidney is normal. No hydronephrosis or solid mass seen in either kidney. No cyst is seen in the either kidney. No ascites is present in the abdomen. Abdominal aorta is normal in caliber. IVC and Hepatic veins are patent. Impression: 1. Echogenic liver suggestive of diffuse liver parenchymal disease such as fatty hepatic infiltrate. 2. Incomplete visualization the pancreas secondary to overlying gas. Signed: Cathleen Triplett MD Report Verified Date/Time: 04/15/2019 08:59:37 Reading Location: [facility] P006J Ultrasound Reading Room Performing Organization Address City/State/Zipcode Phone Number [facility] Blood Culture - Routine (Left Venipuncture) (04/14/2019 6:08 PM CDT)Only the most recent of2 resultswithin the time period is included. Result No growth in 5 days [facility] Specimen Blood Performing Organization Address City/State/Zipcode Phone Number [address] [address] CENTER REPORT OF PROCEDURE - ENDOSCOPY URL (04/14/2019 2:01 PM CDT) Narrative Performed At XR chest 1 view portable / bedside (04/14/2019 9:13 AM CDT) Specimen Narrative Performed At FINAL REPORT [facility] CLINICAL HISTORY: fever TECHNIQUE: 1 view of the chest. COMPARISON: None IMPRESSION: There are no focal infiltrates or effusions. The cardiomediastinal silhouette is magnified by technique. The osseous structures appear intact. Signed: Shawna Garcia MD Report Verified Date/Time:04/14/2019 09:44:57 Reading Location: [facility] Radiology Reading Room Procedure Note Interface, External Ris In - 04/14/2019 9:47 AM CDT FINAL REPORT CLINICAL HISTORY: fever TECHNIQUE: 1 view of the chest. COMPARISON: None IMPRESSION: There are no focal infiltrates or effusions. The cardiomediastinal silhouette is magnified by technique. The osseous structures appear intact. Signed: Shawna Garcia MD Report Verified Date/Time: 04/14/2019 09:44:57 Reading Location: [facility] Radiology Reading Room Performing Organization Address City/State/Zipcode Phone Number [facility] Blood Culture Panel(BioFire) (04/14/2019 8:43 AM CDT) [place] MONOCYTOGENES Not detected Not detected [facility] STAPHYLOCOCCUS Detected (A) Not detected [facility] Comment: [facility] Coagulase negative Staph species (CoNS)- methicillin resistant CENTER First-line therapy: Vancomycin MecA DETECTED Possible contamination. The likelihood of pathogenicity is increased if the organism is observed in multiple blood cultures obtained from separate venipunctures. Reference Range: Not Detected STAPHYLOCOCCUS AUREUS Not detected Not detected [facility] Streptococcus Not detected Not detected [facility] STREPTOCOCCUS AGALACTIAE Not detected Not detected [facility] (GROUP B) [facility] [place] STREPTOCOCCUS PNEUMONIAE Not detected Not detected [facility] Streptococcus pyogenes (Group Not detected Not detected [facility] ACINETOBACTER BAUMANNII Not detected Not detected [facility] HAEMOPHILUS INFLUENZAE Not detected Not detected [facility] NEISSERIA MENINGITIDIS Not detected Not detected [facility] ENTEROBACTERIACEAE Not detected Not detected [facility] ENTEROBACTER CLOACOE COMPLEX Not detected Not detected [facility] KLEBSIELLA OXYTOCA Not detected Not detected [facility] KLEBSIELLA PNEUMONIAE Not detected Not detected [facility] PROTEUS Not detected Not detected [facility] SERRATIA MARCESCENS Not detected Not detected [facility] ANDREW ALBICANS Not detected Not detected [facility] ANDREW GLABRATA Not detected Not detected [facility] ANDREW KRUSEI Not detected Not detected [facility] ANDREW PARAPSILOSIS Not detected Not detected [facility] ANDREW TROPICALIS Not detected Not detected [facility] ESCHERICHIA COLI Not detected Not detected [facility] METHICILLIN-RESISTANCE GENE Detected (A) Not detected [facility] VANCOMYCIN-RESISTANCE GENE Not detected [facility] CARBAPENEM-RESISTANCE GENE Not detected [facility] ENTEROCOCCUS Not detected Not detected [facility] PSEUDOMONAS AERUGINOSA Not detected Not detected [facility] Specimen Blood Narrative Performed At Other bacteria and resistance markers not [facility] targeted by this PCR panel cannot be excluded; therefore clinical correlation and follow up of serology, culture results, and other molecular studies is required. The results are not intended to be used as the sole means for clinical diagnosis or patient management decisions. This sample was tested at the [facility] using the [employer] Blood Culture ID Panel. It is FDA cleared and has been verified and approved by the [facility] for clinical use. This laboratory is CLIA-certified and [employer] (CAP)-accredited to perform high complexity testing. Performing Organization Address [facility] Phone Number [address] [phone] [place] Vitamin B12 and Folate (04/14/2019 8:43 AM CDT) Vitamin B12 299 213 - 816 pg/mL [facility] Folate 6.4 (L) >=7.0 ng/mL [facility] Specimen Blood Performing Organization Address [facility] Phone Number [address] [address] [place] Iron, TIBC, % sat. (without ferritin) (04/14/2019 8:43 AM CDT) Iron 13.0 (L) 40.0 - 160.0 ug/dL [facility] TIBC 326 250 - 450 ug/dL [facility] Iron % Saturation 4 (L) 20 - 55 % [facility] Specimen Blood Performing Organization Address [facility] Phone Number [address] [address] [place] Ferritin (04/14/2019 8:43 AM CDT) Ferritin 8 5 - 275 ng/mL [facility] Specimen Blood Performing Organization Address [facility] Phone Number [address] [address] [phone] [place] Urinalysis w/Microscopic + Reflex to Culture (04/14/2019 8:42 AM CDT) Color, UA Light Yellow [facility] Clarity, UA Clear [facility] Specific [place], UA 1.011 1.001 - 1.035 [facility] pH, UA 5.0 5.0 - 8.0 [facility] Protein, UA Negative Negative [facility] Glucose, UA Negative Negative [facility] Ketones, UA Negative Negative [facility] Bilirubin, UA Negative Negative [facility] Blood, UA Negative Negative [facility] Nitrite, UA Negative Negative [facility] Leukocytes, UA Negative Negative [facility] Urobilinogen, UA 0.2 0.2 - 1.0 mg/dL [facility] RBC, UA 0 /HPF [facility] WBC, UA <1 /HPF [facility] Bacteria, UA Rare [facility] Mucus Rare [facility] Specimen Source [facility] Specimen Urine Performing Organization Address City/[facility] Cent[facility] Phone Number [address] [address] CENTER Lactic acid, venous (04/14/2019 2:59 AM CDT)Only the most recent of2 resultswithin the time period is included. Lactate, Venous 1.9 0.5 - 2.2 mmol/L [facility] Specimen Blood Performing Organization Address [facility] Cent[facility]ode Phone Number [address] [address] [place] ABORH, manual (04/13/2019 9:36 PM CDT) ABO Grouping A [facility] Rh Factor POS [facility] Specimen Blood Performing Organization Address [facility] Cent[facility]ode Phone Number [address] [phone] Comprehensive metabolic panel (04/13/2019 9:07 PM CDT) Protein, Total 5.3 (L) 6.0 - 8.3 gm/dL [facility] Albumin 3.3 (L) 3.5 - 5.0 g/dL [facility] Alkaline Phosphatase 37 (L) 40 - 150 U/L [facility] Total Bilirubin 0.6 0.2 - 1.2 mg/dL [facility] Sodium 137 136 - 145 meq/L [facility] Potassium 4.6 3.5 - 5.1 meq/L [facility] Chloride 108 (H) 98 - 107 meq/L [facility] CO2 18 (L) 22 - 29 meq/L [facility] BUN 59 (H) 7 - 21 mg/dL [facility] Creatinine 1.62 (H) 0.57 - 1.25 mg/dL [facility] Glucose 179 (H) 70 - 105 mg/dL [facility] Calcium 8.2 (L) 8.4 - 10.2 mg/dL [facility] AST 8 5 - 34 U/L [facility] ALT 10 6 - 55 U/L [facility] EGFR 55Comment: ESTIMATED GFR mL/min/1.73 sq m [facility] IS NOT ACCURATE [facility] CREATININE CLEARANCE IN PREDICTING GLOMERULAR FILTRATION RATE. ESTIMATED GFR IS NOT APPLICABLE FOR DIALYSIS PATIENTS. Specimen Blood Performing Organization Address City/State/Zipcode Phone Number [facility] [address] [place] [address] CENTER after 2018 Insurance Payer Benefit Plan / Group Subscriber ID Type Phone Address [facility] - [facility] PPO/POS xxxxxxxxx PPO SYSTEM Advance Directives For more information, please contact:[address] [phone] [place], [place] [phone] Code Status Date Activated Date Inactivated Comments Full Code 07/05/2019 5:44 AM 07/05/2019 2:08 PM This code status was determined by: Patient Full Code 04/13/2019 9:44 PM 04/18/2019 3:58 PM This code status was determined by: Patient
--- NOTE | 2019-07-18 15:42 | ER ---
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 Transition of care: patient was not received from another setting of care. Onset of symptoms was July 18, 2019. Risk Assessment: Do you want to hurt yourself or someone else? Patient reports no desire to harm self or others. Initial Sepsis Screen: Does the patient meet any 2 criteria? No. Patient's initial sepsis screen is negative. Does the patient have a suspected source of infection? No. Patient's initial sepsis screen is negative. Care prior to arrival: None. 15:01 Method Of Arrival: Ambulatory 15:01 Acuity: CRUZITO 4 hj Historical: - Allergies: 15:03 Bactrim DS; kidney fxn; hj - PMHx: 15:03 Diabetes - NIDDM; Hypertension; hj - PSHx: 15:03 ankle sx; hj - Immunization history:: Adult Immunizations unknown. - Social history:: Smoking status: Patient/guardian denies using tobacco. - Ebola Screening: : No symptoms or risks identified at this time. Screenin:56 Abuse screen: Denies threats or abuse. Denies injuries from another. Nutritional ph screening: No deficits noted. Tuberculosis screening: No symptoms or risk factors identified. Fall Risk None identified. Assessment: 16:01 General: Appears in no apparent distress. comfortable, obese, well groomed, Behavior is ph calm, cooperative, appropriate for age, Denies fever. Pain: Denies pain. Neuro: Level of Consciousness is awake, alert, obeys commands, Oriented to person, place, time, situation. Respiratory: Airway is patent Respiratory effort is even, unlabored, Respiratory pattern is regular, symmetrical. GI: Abdomen is round non-distended. Derm: Skin is intact, is healthy with good turgor, Skin is pink, warm \T\ dry. Musculoskeletal: Circulation, motion, and sensation intact. Range of motion: intact in all extremities. Injury Description: surgical site to RLQ of abdomen, healthy in appearance, small amount of bleeding noted. Vital Signs: 15:03 BP 137 / 87; Pulse 76; Resp 18; Temp 98.1(O); Pulse Ox 98% on R/A; Weight 127.01 kg; hj Height 5 ft. 10 in. (177.80 cm); Pain 0/10; 15:03 Body Mass Index 40.18 (127.01 kg, 177.80 cm) ED Course: 14:57 Patient arrived in ED. mr 15:02 Triage completed. hj 15:03 Arm band placed on left wrist. hj 15:19 Evie Vargas RN is Primary Nurse. ph 15:28 Antwon Singer PA is PHCP. cp 15:28 Antwon Moody MD is Attending Physician. cp 16:00 Patient has correct armband on for positive identification. Placed in gown. Bed in low ph position. Call light in reach. 16:00 No provider procedures requiring assistance completed. Patient did not have IV access ph during this emergency room visit. Dressings: 4X4s X 1; abdomen. Administered Medications: No medications were administered Outcome: 15:42 Discharge ordered by MD. cp 16:07 Patient left the ED. ph 16:07 Discharged to home ambulatory, with significant other. ph 16:07 Condition: good 16:07 Discharge instructions given to patient, Instructed on discharge instructions, follow up and referral plans. Demonstrated understanding of instructions, follow-up care. Signatures: Pau Yee mr Evie Vargas RN RN Mat Coburn RN RN Antwon Singer PA PA cp Corrections: (The following items were deleted from the chart) 15:04 15:01 Presenting complaint: Patient states: 2 weeks ago, i had a tumor removed from the skin of my abdomen and today, i noticed the site is bleeding, i just want to have it check, reports dark blood discharge; 15:05 15:03 Resp 18bpm; Pulse Ox 98% RA; Temp 98.1F Oral; 127.01 kg; Height 5 ft. 10 in.; BMI: 40.1; Pain 0/10; 15:10 15:03 Pulse 76bpm; Resp 18bpm; Pulse Ox 98% RA; Temp 98.1F Oral; 127.01 kg; Height 5 hj ft. 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
--- NOTE | 2019-07-18 15:43 | EDPHYS ---
Physician Documentation [facility] Name: Octavio Lay Age: 54 yrs Sex: Male : 1965 Arrival Date: 07/18/2019 Time: 14:57 Bed 13 Private MD: ED Physician Antwon Moody HPI: 07/18 15:35 This 54 yrs old Black Male presents to ER via Ambulatory with complaints of suture site cp bleeding. 15:35 Patient presents to ED for recheck of: abdominal surgical wound. cp 15:35 The affected area is on the right lower abdomen. cp 15:35 Patient reports having tumor removed from right lower abdomen 2 weeks ago by surgeon at [facility]. Noticed blood draining from wound today. Denies fevers, chills. Historical: - Allergies: 15:03 Bactrim DS; kidney fxn; hj - PMHx: 15:03 Diabetes - NIDDM; Hypertension; hj - PSHx: 15:03 ankle sx; hj - Immunization history:: Adult Immunizations unknown. - Social history:: Smoking status: Patient/guardian denies using tobacco. - Ebola Screening: : No symptoms or risks identified at this time. ROS: 15:37 Constitutional: Negative for body aches, chills, fever. cp 15:37 Cardiovascular: Negative for chest pain. 15:37 Respiratory: Negative for cough, shortness of breath. 15:37 Abdomen/GI: Negative for abdominal pain, nausea, vomiting, diarrhea. 15:37 Skin: Positive for of the abdomen, surgical wound. 15:37 All other systems are negative. Exam: 15:38 Constitutional: The patient appears in no acute distress, alert, awake, non-toxic, well cp developed, well nourished, obese. 15:38 Head/Face: Normocephalic, atraumatic. cp 15:38 Skin: cellulitis, is not appreciated, Wound recheck: abdominal surgical wound, appears without dehiscence, without gross swelling, without erythema, minimal dark bloody drainage expressed. Vital Signs: 15:03 BP 137 / 87; Pulse 76; Resp 18; Temp 98.1(O); Pulse Ox 98% on R/A; Weight 127.01 kg; hj Height 5 ft. 10 in. (177.80 cm); Pain 0/10; 15:03 Body Mass Index 40.18 (127.01 kg, 177.80 cm) MDM: 15:31 Patient medically screened. [facility] 15:40 Differential diagnosis: cellulitis, abscess, seroma, hematoma. 15:42 Data reviewed: vital signs, nurses notes, and as a result, I will discharge patient. 15:42 Counseling: I had a detailed discussion with the patient and/or guardian regarding: the cp historical points, exam findings, and any diagnostic results supporting the discharge/admit diagnosis, the need for outpatient follow up, a general surgeon, to return to the emergency department if symptoms worsen or persist or if there are any questions or concerns that arise at home. 07/18 15:37 Order name: Wound dressing; Complete Time: 15:56 cp Administered Medications: No medications were administered Disposition: 16:15 Chart complete. cp Disposition: 07/18/19 15:42 Discharged to Home. Impression: Encounter for other specified surgical aftercare. - Condition is Stable. - Discharge Instructions: Wound Check, Wound Care. - Medication Reconciliation Form, Thank You Letter, Antibiotic Education, Prescription Opioid Use form. - Follow up: Private Physician; When: 07/20/2019; Reason: Wound Recheck, as scheduled. - Problem is new. - Symptoms have improved. Addendum: 07/19/2019 20:36 Co-signature as Attending Physician, Antwon Moody MD I agree with the assessment and c welch plan of care. Signatures: Antwon Moody MD MD cha Hall, Patricia RN SAUD Mat Coburn RN Antwon Trejo PA PA Corrections: (The following items were deleted from the chart) 07/18 16:07 15:42 07/18/2019 15:42 Discharged to Home. Impression: Encounter for other specified ph surgical aftercare. Condition is Stable. Forms are Medication Reconciliation Form, Thank You Letter, Antibiotic Education, Prescription Opioid Use. Follow up: Private Physician; When: 07/20/2019; Reason: Wound Recheck, as scheduled. Problem is new. Symptoms have improved. cp
== END 2019-07-18 16:07 | disposition home or self-care (01) ==
LOC: ER 14:55
DX: Z48.89 Encounter for other specified surgical aftercare (principal); I10 Essential (primary) hypertension; Z88.1 Allergy status to other antibiotic agents
CPT/HCPCS: 99281

== ENCOUNTER 2023-09-01 08:00 | Emergency (ER) | payer OTHER ==
--- NOTE | 2023-09-01 08:12 | EDPHYS ---
Physician Documentation [facility] Name: Octavio Lay Age: 58 yrs Sex: Male : 1965 Arrival Date: 09/01/2023 Time: 08:00 Bed Waiting Private MD: ED Physician Spencer Qureshi HPI: 09/01 08:10 This 58 yrs old Black Male presents to ER via Ambulatory with complaints of Sore Throat jh7 - Drainage. 08:10 The patient presents with sore throat. The patient describes throat pain as raw, jh7 scratchy. Onset: The symptoms/episode began/occurred 3 day(s) ago. Associated signs and symptoms: Pertinent positives: headache, rhinorrhea, Sore throat Pertinent negatives chest pain, cough, fever, flu-like symptoms. Historical: - Allergies: 08:10 Bactrim DS; kidney fxn; cm10 - Home Meds: 08:10 atorvastatin 20 mg Oral tab once daily [Active]; carvedilol 25 mg Oral tab 1 tab 2 cm10 times per day [Active]; irbesartan-hydrochlorothiazide 300-12.5 mg Oral tab [Active]; saxagliptin-metformin Oral once daily [Active]; - PMHx: 08:10 Diabetes - NIDDM; Hypertension; cm10 - Immunization history:: Adult Immunizations unknown. - Social history:: Smoking status: Patient denies any tobacco usage or history of. ROS: 08:10 Constitutional: Negative for fever, chills, and weight loss, Eyes: Negative for injury, jh7 pain, redness, and discharge, Neck: Negative for injury, pain, and swelling, Cardiovascular: Negative for chest pain, palpitations, and edema, Respiratory: Negative for shortness of breath, cough, wheezing, and pleuritic chest pain, Abdomen/GI: Negative for abdominal pain, nausea, vomiting, diarrhea, and constipation, Back: Negative for injury and pain, MS/Extremity: Negative for injury and deformity, Skin: Negative for injury, rash, and discoloration, Neuro: Negative for headache, weakness, numbness, tingling, and seizure, 08:10 ENT: Positive for sinus congestion, sinus pain, sore throat, 08:10 All other systems are negative, Exam: 08:10 Constitutional: This is a well developed, well nourished patient who is awake, alert, jh7 and in no acute distress. Head/Face: Normocephalic, atraumatic. Neck: Trachea midline, no thyromegaly or masses palpated, and no cervical lymphadenopathy. Supple, full range of motion without nuchal rigidity, or vertebral point tenderness. No Meningismus. Cardiovascular: Regular rate and rhythm with a normal S1 and S2. No gallops, murmurs, or rubs. Normal PMI, no JVD. No pulse deficits. Respiratory: Lungs have equal breath sounds bilaterally, clear to auscultation and percussion. No rales, rhonchi or wheezes noted. No increased work of breathing, no retractions or nasal flaring. Abdomen/GI: Soft, non-tender, with normal bowel sounds. No distension or tympany. No guarding or rebound. No evidence of tenderness throughout. Back: No spinal tenderness. No costovertebral tenderness. Full range of motion. Skin: Warm, dry with normal turgor. Normal color with no rashes, no lesions, and no evidence of cellulitis. MS/ Extremity: Pulses equal, no cyanosis. Neurovascular intact. Full, normal range of motion. Neuro: Awake and alert, GCS 15, oriented to person, place, time, and situation. Motor strength 5/5 in all extremities. Sensory grossly intact. Normal gait. 08:10 ENT: Posterior pharynx: Tonsils: are normal in appearance, Uvula: normal, erythema, that is mild, pooling of secretions, that are moderate, Voice: is normal, mildly tender maxillary sinuses. Vital Signs: 08:08 BP 136 / 99; Pulse 95; Resp 17; Temp 98.8; Pulse Ox 96% ; cm10 08:10 Weight 127.01 kg; cm10 MDM: 08:05 Patient medically screened. [facility] 08:12 Differential diagnosis: Allergic rhinitis, pharyngitis, upper respiratory infection, jh7 viral syndrome sinusitis. Data reviewed: vital signs, nurses notes. Care significantly affected by the following chronic conditions: Diabetes, Hypertension. Counseling: I had a detailed discussion with the patient and/or guardian regarding the historical points, exam findings, and any diagnostic results supporting the discharge/admit diagnosis, to return to the emergency department if symptoms worsen or persist or if there are any questions or concerns that arise at home. Special discussion: Inform the patient that this condition is very likely viral and that antibiotics will not be needed. Advised him to only feel the amoxicillin if symptoms persist beyond another 4 to 5 days. Advised Flonase, humidified air, and Mucinex DM.. Administered Medications: No medications were administered Disposition: 12:10 Co-signature as Attending Physician, Spencer Qureshi MD I reviewed the patient's care rn provided by the Advanced Practice Provider and agree with the diagnosis and treatment plan. Disposition Summary: 09/01/23 08:11 Discharge Ordered Notes: Location: Home [facility] Problem: [facility] Symptoms: are unchanged [facility] Condition: Stable [facility] Diagnosis - Acute sinusitis, unspecified [facility] Followup: [facility] - With: Private Physician - When: 2 - 3 days - Reason: Recheck today's complaints Discharge Instructions: - Discharge Summary Sheet [facility] - Sinusitis, Adult [facility] - How to Perform a Sinus Rinse, [id number] [facility] Forms: - Medication Reconciliation Form [facility] - Thank You Letter [facility] - Antibiotic Education [facility] - Patient Portal Instructions [facility] - Leadership Thank You Letter [facility] Prescriptions: - Amoxicillin 875 mg Oral Tablet - take 1 tablet ORAL route every 12 hours for 10 days; 20 tablet; Refills: 0, [facility] Product Selection Permitted Signatures: Spencer Qureshi MD MD rn Helen Nash FNP [place] [id number] Miya Cortez, RN RN cm10 Corrections: (The following items were deleted from the chart) 08:11 08:10 PMHx: Hypertensive disorder; cm10 cm10 08:11 08:10 PMHx: Diabetes mellitus; cm10 cm10
--- NOTE | 2023-09-01 08:12 | ER ---
Nurse's Notes [facility] Name: Octavio Lay Age: 58 yrs Sex: Male : 1965 Arrival Date: 09/01/2023 Time: 08:00 Bed Waiting Private MD: Diagnosis: Acute sinusitis, unspecified Presentation: 09/01 08:08 Chief complaint: Patient states: Sore throat x4 days, denies fever. Coronavirus screen: cm10 At this time, the client does not indicate any symptoms associated with coronavirus-19. Ebola Screen: No symptoms or risks identified at this time. Initial Sepsis Screen: Does the patient meet any 2 criteria? No. Patient's initial sepsis screen is negative. Does the patient have a suspected source of infection? No. Patient's initial sepsis screen is negative. Risk Assessment: Do you want to hurt yourself or someone else? Patient reports no desire to harm self or others. Onset of symptoms was August 28, 2023. 08:08 Method Of Arrival: Ambulatory cm10 08:08 Acuity: CRUZITO 4 cm10 Triage Assessment: 08:10 General: Appears in no apparent distress. uncomfortable, Behavior is calm, cooperative, cm10 appropriate for age. Pain: Complains of pain in sore throat Pain currently is 5 out of 10 on a pain scale. EENT: Throat is clear. Historical: - Allergies: 08:10 Bactrim DS; kidney fxn; cm10 - Home Meds: 08:10 atorvastatin 20 mg Oral tab once daily [Active]; carvedilol 25 mg Oral tab 1 tab 2 cm10 times per day [Active]; irbesartan-hydrochlorothiazide 300-12.5 mg Oral tab [Active]; saxagliptin-metformin Oral once daily [Active]; - PMHx: 08:10 Diabetes - NIDDM; Hypertension; cm10 - Immunization history:: Adult Immunizations unknown. - Social history:: Smoking status: Patient denies any tobacco usage or history of. Vital Signs: 08:08 BP 136 / 99; Pulse 95; Resp 17; Temp 98.8; Pulse Ox 96% ; cm10 08:10 Weight 127.01 kg; cm10 ED Course: 08:04 Patient arrived in ED. mg5 08:05 [facility] 08:05 Spencer Qureshi MD is Attending Physician. jh7 08:10 Triage completed. cm10 08:10 Arm band placed on right wrist. cm10 08:18 No provider procedures requiring assistance completed. Patient did not have IV access cm10 during this emergency room visit. Administered Medications: No medications were administered Outcome: 08:11 Discharge ordered by . jh7 08:18 Discharged to home ambulatory, cm10 08:18 Condition: stable 08:18 Discharge instructions given to patient, Instructed on discharge instructions, follow up and referral plans. medication usage, Demonstrated understanding of instructions, follow-up care, medications, Prescriptions given X 1, 08:18 Patient left the ED. cm10 Signatures: Helen Nash FNP FNP jh7 Miya Cortez RN RN [email or web address] Gi Angel mg5 Corrections: (The following items were deleted from the chart) 08:11 08:10 PMHx: Hypertensive disorder; cm10 cm10 08:11 08:10 PMHx: Diabetes mellitus; cm10 cm10
[2023-09-01 08:22] VITALS: BP 136/99; TEMP 98.8; O2SAT 96
== END 2023-09-01 08:18 | disposition home or self-care (01) ==
LOC: ER 08:00
DX: J01.90 Acute sinusitis, unspecified (principal); E11.9 Type 2 diabetes mellitus without complications; I10 Essential (primary) hypertension; Z88.1 Allergy status to other antibiotic agents
CPT/HCPCS: 99283

== ENCOUNTER 2023-09-06 10:26 | Inpatient (IN) | payer OTHER ==
[2023-09-06] MEDS ORDERED: NA CHLORIDE 0.9% 1,000 ML ONE ×2 (11:39→14:07)
[2023-09-06 11:48] LABS: Absolute Lymphocytes (CBC) 0.6 K/uL (0.7-4.9); Hematocrit 35.6 % (39.6-49.0); Lymphocytes % 2.4 % (15.3-44.8); MCV 84.5 fL (80-100); MPV 9.5 fL (7.6-11.3); Platelets 226 thou/uL (152-406); RBC Red Blood Cell Count 4.21 M/uL (4.33-5.43)
[2023-09-06 12:05] LABS: Albumin 2.4 g/dL (3.4-5.0); Bilirubin Total 1.8 mg/dL (0.2-1.0); Potassium 3.3 mEq/L (3.5-5.1)
[2023-09-06 12:56] LABS: Blood Morphology Comment NOT SEEN (NOT SEEN); Platelet Estimate ADEQ; Platelets, Giant NOTED
[2023-09-06 13:27] LABS: Specific Gravity 1.013 (1.005-1.030); Urine Bacteria None Seen /HPF (<20); Urine Bilirubin NEGATIVE (Negative); Urine Blood Negative (Negative); Urine Clarity Turbid (Clear); Urine Color Yellow (Yellow); Urine Glucose NEGATIVE (Negative); Urine Mucus Slight /HPF (None Seen); Urine Protein TRACE (Negative); Urine RBC <5 /HPF (None Seen); Urine Urobilinogen Normal (Normal); Urine pH 5.5 (5.0-7.0)
[2023-09-06] MEDS ORDERED: NA CHLORIDE 0.9% 100 ML ONE (14:07)
[2023-09-06] MEDS ORDERED: ACETAMINOPHEN 500 MG TAB ONE (14:07)
[2023-09-06] MEDS ORDERED: AMPICILLIN/SULBACTAM 3GM/VIAL ONE (14:07)
--- NOTE | 2023-09-06 15:23 | RAD REPORT ---
EXAM DESCRIPTION: CT - Soft Tissue Neck W/Contr CLINICAL HISTORY: eval for R neck abscess Neck pain and swelling COMPARISON: No comparisons TECHNIQUE All CT scans are performed using dose optimization technique as appropriate and may includ e automated exposure control or mA/KV adjustment according to patient size. FINDINGS: There is moderate inflammation noted along the right deep neck, extending along the right jugular digastric chain, beginning at the level of the right medial supraclavicular fossa adjacent to the right thyroid gland extending superiorly to the level of the right parapharyngeal fat triangle. There are several enlarged lymph nodes along the right jugulodigastric chain, largest measuring 20 mm . There is narrowing of the right internal jugular vein without thrombus or complete occlusion eviden t. There is irregular abnormal soft tissue noted along the right tongue base extending inferiorly wit h soft tissue thickening seen involving right supraglottis and mass effect upon the epiglottis and ar yepiglottic fold. The right sternocleidomastoid muscle appears mildly enlarged relative to the left mildly inflamed. No well-formed abscess collection is seen. No prevertebral abscess. IMPRESSION: Deep right neck inflammatory changes are present detailed with several enlarged lymph no eliel. There is moderate narrowing of the right internal jugular vein identified. Inflammatory changes extend from the right supraclavicular fossa to the right parapharyngeal fat triangle. A well-formed f luid collection to indicate abscess is not seen. Moderate abnormal tissue is seen along the base of the tongue on the right extending inferiorly to in volve the supraglottic larynx. Suggest direct visualization for followup assessment of this region.
--- NOTE | 2023-09-06 15:47 | ER ---
Nurse's Notes [facility] Name: Octavio Lay Age: 58 yrs Sex: Male : 1965 Arrival Date: 09/06/2023 Time: 10:26 Bed 19 Private MD: Diagnosis: Sepsis, unspecified organism;Soft Tissue Infection Presentation: 09/06 11:12 Chief complaint: Patient states: was here Thursday, still not feeling well, decreased ko1 appetite, urine was clear now its getting darker No nausea or vomiting, just feels weak. Coronavirus screen: At this time, the client does not indicate any symptoms associated with coronavirus-19. Ebola Screen: No symptoms or risks identified at this time. Initial Sepsis Screen: Does the patient meet any 2 criteria? No. Patient's initial sepsis screen is negative. Does the patient have a suspected source of infection? No. Patient's initial sepsis screen is negative. Risk Assessment: Do you want to hurt yourself or someone else? Patient reports no desire to harm self or others. Onset of symptoms was September 06, 2023. 11:12 Method Of Arrival: Ambulatory ko1 11:12 Acuity: CRUZITO 3 ko1 Triage Assessment: 11:14 General: Appears in no apparent distress. Behavior is calm, cooperative, appropriate ko1 for age. Pain: Denies pain. Historical: - Allergies: 11:14 Bactrim DS; kidney fxn; ko1 - PMHx: 11:14 Diabetes - NIDDM; Hypertension; ko1 - Immunization history:: Adult Immunizations up to date. - Social history:: Smoking status: Patient denies any tobacco usage or history of. Screenin:25 [facility] ED Fall Risk Assessment (Adult) History of falling in the last 3 months, kc6 including since admission No falls in past 3 months (0 pts) Confusion or Disorientation No (0 pts) Intoxicated or Sedated No (0 pts) Impaired Gait No (0 pts) Mobility Assist Device Used No (0 pt) Altered Elimination No (0 pt) Score/Fall Risk Level 0 - 2 = Low Risk. Abuse screen: Denies threats or abuse. Denies injuries from another. Nutritional screening: No deficits noted. Tuberculosis screening: No symptoms or risk factors identified. Assessment: 11:43 General: Appears in no apparent distress. comfortable, Behavior is calm, cooperative, kc6 appropriate for age. Pain: Denies pain. Neuro: Level of Consciousness is awake, alert, obeys commands, Oriented to person, place, time, situation, Appropriate for age. Cardiovascular: Capillary refill < 3 seconds. Respiratory: Airway is patent Trachea midline Respiratory effort is even, unlabored, Respiratory pattern is regular, symmetrical. GI: No signs and/or symptoms were reported involving the gastrointestinal system. : No signs and/or symptoms were reported regarding the genitourinary system. EENT: No signs and/or symptoms were reported regarding the EENT system. Derm: No signs and/or symptoms reported regarding the dermatologic system. Skin is intact, is healthy with good turgor, Skin is pink, warm \T\ dry. Musculoskeletal: No signs and/or symptoms reported regarding the musculoskeletal system. Circulation, motion, and sensation intact. Capillary refill < 3 seconds, Range of motion: intact in all extremities. 12:31 Reassessment: Patient appears in no apparent distress at this time. No changes from kc6 previously documented assessment. Patient and/or family updated on plan of care and expected duration. Pain level reassessed. Patient is alert, oriented x 3, equal unlabored respirations, skin warm/dry/pink. 13:21 Reassessment: Patient appears in no apparent distress at this time. No changes from kc6 previously documented assessment. Patient and/or family updated on plan of care and expected duration. Pain level reassessed. Patient is alert, oriented x 3, equal unlabored respirations, skin warm/dry/pink. 19:25 General: Called to give report. Patient hasn't been assigned to a nurse yet. Nurse will me1 call me back. . Vital Signs: 11:12 BP 124 / 77; Pulse 92; Resp 16; Temp 99; Pulse Ox 95% ; Weight 126.1 kg; Height 5 ft. ko1 10 in. ; 12:32 BP 122 / 65; Pulse 92; Resp 18 S; Temp 99.3(O); kc6 13:21 BP 145 / 109; Pulse 87; Resp 16 S; Pulse Ox 100% on R/A; kc6 14:01 BP 117 / 66; Pulse 95; Resp 19 S; Temp 99.8(O); Pulse Ox 100% on R/A; kc6 15:15 BP 136 / 69; Pulse 81; Resp 17; Pulse Ox 99% on R/A; me1 19:34 BP 135 / 83; Pulse 85; Resp 16; Pulse Ox 100% ; me1 11:12 Body Mass Index 39.89 (126.10 kg, 177.8 cm) ko1 ED Course: 10:29 Patient arrived in ED. im 10:33 Mohamud Ross MD is Attending Physician. ec2 11:14 Triage completed. ko1 11:14 Arm band placed on right wrist. Patient notified of wait time. ko1 11:23 Joyce Ramirez, RN is Primary Nurse. kc6 11:25 Patient has correct armband on for positive identification. Bed in low position. Call kc6 light in reach. Side rails up X 1. Adult w/ patient. Client placed on continuous cardiac and pulse oximetry monitoring. NIBP monitoring applied. monitor and storage bin tender on. 11:42 Inserted saline lock: 22 gauge in right forearm, using aseptic technique. Blood kc6 collected. Patient maintains SpO2 saturation greater than 95% on room air. 13:14 Urinalysis w/ reflexes Sent. me1 13:49 Lactate w/ 2H reflex if indic. Sent. kc6 14:48 Soft Tissue Neck W/Contr CT In Process Unspecified. EDMS 15:21 Blood Culture Adult (2) Sent. me1 15:21 Inserted saline lock: 22 gauge in left hand, using aseptic technique. me1 15:47 John Qureshi MD is Hospitalizing Provider. ec2 17:39 [place] Screen Sent. me1 19:33 Provided Education on: need for admit.. me1 19:33 No provider procedures requiring assistance completed. Patient admitted, IV remains in me1 place. Administered Medications: 11:42 Drug: NS 0.9% IV 1000 ml IV at 1 bolus Per protocol; 1000 mL bolus Route: IV; Rate: 1 kc6 bolus; Site: right forearm; 13:14 Follow up: IV Status: Completed infusion; IV Intake: 1000ml me1 14:02 Drug: NS 0.9% IV 1000 ml IV at 1 bolus Per protocol; 1000 mL bolus Route: IV; Rate: 1 kc6 bolus; Site: right forearm; 15:22 Follow up: IV Status: Completed infusion; IV Intake: 1000ml me1 14:02 Drug: Acetaminophen PO 1000 mg PO once Route: PO; kc6 15:22 Follow up: Response: No adverse reaction me1 15:22 Drug: Ampicillin-Sulbactam Sodium IVPB 3 grams IVPB once over 30 mins; (mix in 100 mL me1 NS) Route: IVPB; Infused Over: 30 mins; Site: right forearm; 19:30 Follow up: Response: No adverse reaction; No change in condition; IV Status: Completed me1 infusion Medication: 19:33 VIS not applicable for this client. me1 Intake: 13:14 IV: 1000ml; Total: 1000ml. me1 15:22 IV: 1000ml; Total: 2000ml. me1 Outcome: 15:47 Decision to Hospitalize by Provider. ec2 19:33 Admitted to Med/surg accompanied by tech, via wheelchair, room 211, with chart, Report me1 called to Amy Roberts RN 19:33 Condition: stable me1 19:39 Patient left the ED. me1 Signatures: Dispatcher [employer] Joyce Williamson RN RN kc6 Lea Judd RN RN [email or web address] Ellen Pritchard Michelle, RN RN me1 Mohamud Ross MD MD ec2
--- NOTE | 2023-09-06 15:47 | EDPHYS ---
Physician Documentation [facility] Name: Octavio Lay Age: 58 yrs Sex: Male : 1965 Arrival Date: 09/06/2023 Time: 10: Bed 19 Private MD: ED Physician Mohamud Ross HPI: 09/06 11:26 This 58 yrs old Black Male presents to ER via Ambulatory with complaints of ec2 Fatigue/loss of hunger. 11:26 Patient arrives today due to concern for fatigue. Patient reports that he was diagnosed ec2 with sinusitis approximately 1 week ago and started on antibiotics. States that the sinus infection had subsequently improved however is here today because he is having some persistent fatigue as well as decreased p.o. intake. Patient reports no nausea or vomiting, no abdominal pain, has had a couple bouts of diarrhea. Patient reports history of diabetes as well as hypertension. Patient reports decreased p.o. intake as well.. Historical: - Allergies: 11:14 Bactrim DS; kidney fxn; ko1 - PMHx: 11:14 Diabetes - NIDDM; Hypertension; ko1 - Immunization history:: Adult Immunizations up to date. - Social history:: Smoking status: Patient denies any tobacco usage or history of. ROS: 11:26 Constitutional: Generalized weakness. ec2 Exam: 11:26 Constitutional: PHYSICAL EXAMINATION: GENERAL: No acute distress HEENT: Extraocular ec2 motions intact CV: Regular rate LUNGS: No respiratory distress ABDOMEN: Nondistended, obese SKIN: No rash NEUROLOGIC: Moves all extremities equally Vital Signs: 11:12 BP 124 / 77; Pulse 92; Resp 16; Temp 99; Pulse Ox 95% ; Weight 126.1 kg; Height 5 ft. ko1 10 in. ; 12:32 BP 122 / 65; Pulse 92; Resp 18 S; Temp 99.3(O); kc6 13:21 BP 145 / 109; Pulse 87; Resp 16 S; Pulse Ox 100% on R/A; kc6 14:01 BP 117 / 66; Pulse 95; Resp 19 S; Temp 99.8(O); Pulse Ox 100% on R/A; kc6 15:15 BP 136 / 69; Pulse 81; Resp 17; Pulse Ox 99% on R/A; me1 19:34 BP 135 / 83; Pulse 85; Resp 16; Pulse Ox 100% ; me1 11:12 Body Mass Index 39.89 (126.10 kg, 177.8 cm) ko1 MDM: 10:34 Patient medically screened. ec2 11:26 Data reviewed: vital signs. ED course: Patient arrives today due to concern for ec2 fatigue. Examination markable for obese individual is otherwise in no acute distress with reassuring vital signs and a reassuring examination. Will obtain lab work given the patient's reported dehydration and will get the patient a liter of crystalloid as well. Currently considered process such as BEVERLEY, electrolyte disturbances, viral infection. Additionally considered UTI.. 13:32 ED course: Metabolic profile is pertinent for slight hypokalemia with potassium of 3.3, ec2 slight hyponatremia at 133. Patient does have some abnormal LFTs with a mild elevation in ALT and AST. CBC is remarkable for marked leukocytosis at 26.7. On reassessment of the patient, he does complain of some right neck pain, HEENT examination does show that he has induration in the right neck, no appreciable fluctuance however does have a marked leukocytosis with no reported steroid use recently. We will obtain a CT scan of the neck to evaluate for abscess. We will add on blood cultures and lactic acid as well as treat empirically for HEENT infection as patient meets SIRS criteria with documented heart rates greater than 90 as well as marked leukocytosis. Otherwise patient is maintaining his airway well, is nontoxic-appearing otherwise.. 14:14 ED course: Lactic acid within normal ranges.. ec2 15:38 ED course: CT of the neck shows concern for soft tissue inflammation with associated ec2 lymphadenopathy. To be consistent with a neck infection. No formal abscess appreciated that requires emergent intervention at this time. I will admit the patient for continued management of his infection.. 09/06 11:25 Order name: CBC with Diff; Complete Time: 13:28 ec2 09/06 11:25 Order name: CMP; Complete Time: 13:28 ec2 09/06 11:25 Order name: Urinalysis w/ reflexes; Complete Time: 13:31 ec2 09/06 11:52 Order name: Manual Differential; Complete Time: 13:28 EDMS 09/06 13:38 Order name: Blood Culture Adult (2) ec2 09/06 13:38 Order name: Lactate w/ 2H reflex if indic.; Complete Time: 14:14 ec2 09/06 17:12 Order name: CBC with Automated Diff EDMS 09/06 17:12 Order name: CBC with Automated Diff; Complete Time: 19:30 EDMS 09/06 17:12 Order name: CBC with Automated Diff EDMS 09/06 17:12 Order name: CBC with Automated Diff EDMS 09/06 17:13 Order name: [place] Screen; Complete Time: 19:30 EDMS 09/06 18:54 Order name: Thyroid Stimulating Hormone; Complete Time: 19:30 EDMS 09/06 13:38 Order name: Soft Tissue Neck W/Contr CT; Complete Time: 15:25 ec2 09/06 17:15 Order name: Abdomen EDMS 09/06 18:27 Order name: CT; Complete Time: 19:30 EDMS 09/06 11:25 Order name: IV Saline Lock; Complete Time: 11:42 ec2 09/06 11:25 Order name: Labs collected and sent; Complete Time: 11:42 ec2 Administered Medications: 11:42 Drug: NS 0.9% IV 1000 ml IV at 1 bolus Per protocol; 1000 mL bolus Route: IV; Rate: 1 kc6 bolus; Site: right forearm; 13:14 Follow up: IV Status: Completed infusion; IV Intake: 1000ml me1 14:02 Drug: NS 0.9% IV 1000 ml IV at 1 bolus Per protocol; 1000 mL bolus Route: IV; Rate: 1 kc6 bolus; Site: right forearm; 15:22 Follow up: IV Status: Completed infusion; IV Intake: 1000ml me1 14:02 Drug: Acetaminophen PO 1000 mg PO once Route: PO; kc6 15:22 Follow up: Response: No adverse reaction me1 15:22 Drug: Ampicillin-Sulbactam Sodium IVPB 3 grams IVPB once over 30 mins; (mix in 100 mL me1 NS) Route: IVPB; Infused Over: 30 mins; Site: right forearm; 19:30 Follow up: Response: No adverse reaction; No change in condition; IV Status: Completed me1 infusion Disposition Summary: 09/06/23 15:47 Hospitalization Ordered Notes: Hospitalization Status: Inpatient Admission ec2 Provider: John Qureshi ec2 Location: Telemetry/MedSur (Inpatient) ec2 Condition: Stable ec2 Problem: new ec2 Symptoms: have improved ec2 Bed/Room Type: Standard ec2 Room Assignment: 211(09/06/23 19:15) cg Diagnosis - Sepsis, unspecified organism ec2 - Soft Tissue Infection ec2 Forms: - Medication Reconciliation Form ec2 - SBAR form ec2 - Leadership Thank You Letter ec2 Critical care time excluding procedures: 15:38 Critical care time: Bedside Care: 25 minutes, Consultation: 10 minutes. Total time: 35 ec2 minutes Signatures: Dispatcher [employer] EDMS Anayeli Singleton FNP-C [employer] Sylvia Mancera, RN RN cg Joyce Ramirez RN RN kc6 Lea Judd RN RN ko1 Jessica Garza RN RN me1 Mohamud Ross MD MD ec2 Corrections: (The following items were deleted from the chart) 13:40 13:32 ED course: Metabolic profile is pertinent for slight hypokalemia with potassium ec2 of 3.3, slight hyponatremia at 133. Patient does have some abnormal LFTs with a mild elevation in ALT and AST. CBC is remarkable for marked leukocytosis at 26.7. . ec2 19:15 15:47 ec2 cg
[2023-09-06] MEDS ORDERED: ACETAMINOPHEN 500 MG TAB PO PRN (17:18)
[2023-09-06] MEDS ORDERED: ONDANSETRON 4 MG/2 ML VIAL IV PRN (17:18)
--- NOTE | 2023-09-06 17:30 | P.HP ---
Patient History Date of Service: 09/06/23 Allergies sulfamethoxazole [From Bactrim] Adverse Reaction (Verified 02/17/19 18:36) Anaphylaxis trimethoprim [From Bactrim] Adverse Reaction (Verified 02/17/19 18:36) Anaphylaxis Home Medications: Aspirin [Adult Low Dose Aspirin EC] 81 mg PO DAILY 02/17/19 Atorvastatin Calcium 20 mg PO DAILY 02/17/19 Cholecalciferol (Vitamin D3) [Vitamin D 1000 Iu Tab*] 2,000 unit PO DAILY 02/17/19 Irbesartan/Hydrochlorothiazide [Avalide 300-12.5 mg Tablet] 1 each PO DAILY 02/17/19 Omeprazole [Prilosec] 20 mg PO BID 02/17/19 Saxagliptin HCl/Metformin HCl [Kombiglyze Xr 5-1,000 mg Tab] 1 tab PO DAILY 02/17/19 carvediloL [Coreg*] 25 mg PO BID 02/17/19 Amox/Clavulanate [Augmentin 875-125 Tab*] 875 mg PO BID #14 tab 02/20/19 - Past Medical/Surgical History Diabetic: Yes -: HTN -: Diabetes -: obesity -: kidney -: ankle surgery - Social History Alcohol use: No CD- Drugs: No Caffeine use: Yes Physical Examination - Studies Laboratory Data (last 24 hrs) 09/06/23 09/06/23 11:39 11:39 WBC 26.70 H Hgb 12.1 L Hct 35.6 L Plt Count 226 Sodium 133 L Potassium 3.3 L BUN 16 Creatinine 1.09 Glucose 151 H Total Bilirubin 1.8 H AST 184 H ALT 267 H Alkaline Phosphatase 517 H Assessment and Plan - Advance Directives Does patient have a Living Will: No Does patient have a Durable POA for Healthcare: No
--- NOTE | 2023-09-06 17:49 | P.HP ---
Certification for Inpatient With expected LOS: <2 Midnights Patient will require the following post-hospital care: None Practitioner: I am a practitioner with admitting privileges, knowledge of patient current condition, hospital course, and medical plan of care. Services: Services provided to patient in accordance with Admission requirements found in Title 42 Section 412.3 of the Code of Federal Regulations Patient History Date of Service: 09/06/23 Primary Care Provider: John Moore History of Present Illness: Mr. 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 Patient presented to the emergency room with complaints of fatigue, loss of hunger. Patient reports that he was not feeling good for last 7 days he was diagnosed with sinusitis almost a week ago and was started on amoxicillin. It did help initially but he got worse again today morning he was not feeling good and not able to eat or drink due to thick secretions in the throat. Patient complains of right neck pain. patient denies nausea or vomiting, abdominal pain, he had review diarrhea. Patient denies chest pain, palpitation, shortness of breath, chest pressure. ED course Vital signs blood pressure 124/77, pulse 92, respirations 16, temperature 99, pulse ox 95% on room air. Laboratory reports are significant for hypokalemia, slight hyponatremia at 133, patient have some abnormal LFTs with a mild elevation of ALT and AST. CBC is remarkable for marked leukocytosis at 26.7. Ordered blood cultures and lactic acid and started antibiotic treatment empirically for HEENT infection as patient meets SIRS criteria due to tachycardia cardia and leukocytosis. Patient's denying his airway well, nontoxic appearing. Lactic acid is within normal range CT scan of neck shows soft tissue inflammation without associated lymphadenopathy. Sepsis, soft tissue infection Admitting the patient with a diagnosis of sepsis, soft tissue infection of neck with lymphadenopathy. Allergies sulfamethoxazole [From Bactrim] Adverse Reaction (Verified 02/17/19 18:36) Anaphylaxis trimethoprim [From Bactrim] Adverse Reaction (Verified 02/17/19 18:36) Anaphylaxis Home medications list reviewed: Yes Home Medications: Aspirin [Adult Low Dose Aspirin EC] 81 mg PO DAILY 02/17/19 Atorvastatin Calcium 20 mg PO DAILY 02/17/19 Cholecalciferol (Vitamin D3) [Vitamin D 1000 Iu Tab*] 2,000 unit PO DAILY 02/17/19 Irbesartan/Hydrochlorothiazide [Avalide 300-12.5 mg Tablet] 1 each PO DAILY 02/17/19 Omeprazole [Prilosec] 20 mg PO BID 02/17/19 Saxagliptin HCl/Metformin HCl [Kombiglyze Xr 5-1,000 mg Tab] 1 tab PO DAILY 02/17/19 carvediloL [Coreg*] 25 mg PO BID 02/17/19 Amox/Clavulanate [Augmentin 875-125 Tab*] 875 mg PO BID #14 tab 02/20/19 - Past Medical/Surgical History Diabetic: Yes -: HTN -: Diabetes -: obesity -: kidney -: ankle surgery - Family History Father History Unknown: Yes Mother -: Hypertension, Stroke - Social History Alcohol use: No CD- Drugs: No Caffeine use: Yes Review of Systems General: Chills, Weakness, Unremarkable Eyes: Unremarkable ENT: Nose Congestion, Throat Pain, Throat Swelling, Other (Congestion difficulty eating due to increasded thick secretions,) Respiratory: Other (Denies any shortness of breath cough) Cardiovascular: Other (Denies chest pain palpitation) Gastrointestinal: Diarrhea (Couple of times) Genitourinary: Unremarkable Musculoskeletal: Unremarkable Integumentary: Unremarkable Neurological: Unremarkable Lymphatics: Unremarkable Physical Examination - Physical Exam General: Alert, Oriented x3, Cooperative HEENT: Atraumatic, Normocephalic, PERRLA, Mucous membr. moist/pink, Other (Right neck pain, induration on the right neck, increased thick sticky secretions) Neck: 2+ carotid pulse no bruit, JVD not distended Respiratory: Clear to auscultation bilaterally, Normal air movement Cardiovascular: No edema, Normal pulses, Regular rate/rhythm, Normal S1 S2, No gallops Capillary refill: <2 Seconds Gastrointestinal: Normal bowel sounds, Soft and benign, W/out hepatosplenomegaly, W/out hepatomegaly, W/out splenomegaly, No ascites, No tenderness, No masses, No rebound, No guarding Musculoskeletal: No clubbing, No swelling, No contractures, No erythema, No tenderness, No warmth Integumentary: No rashes, No breakdown, No significant lesion, No tenderness/sw elling, No erythema, No warmth, No cyanosis Neurological: Normal gait, Normal speech, Normal strength at 5/5 x4 extr, Normal tone, Sensation intact, Cranial nerves 3-12 intact, Normal reflexes 2+ - Studies Laboratory Data (last 24 hrs) 09/06/23 09/06/23 11:39 11:39 WBC 26.70 H Hgb 12.1 L Hct 35.6 L Plt Count 226 Sodium 133 L Potassium 3.3 L BUN 16 Creatinine 1.09 Glucose 151 H Total Bilirubin 1.8 H AST 184 H ALT 267 H Alkaline Phosphatase 517 H Assessment and Plan - Plan Assessment and plan Assessment Sepsis, unspecified organism Soft tissue infection right neck, lymphadenopathy Elevated liver enzymes Diabetes Hyperlipidemia Hypertension Plan Sepsis, unspecified organism Soft tissue infection right neck, lymphadenopathy Elevated liver enzymes * Patient with c/o faltigue, loss of appetite and generalized weakness. failure of out patient treatment with amoxicillin 3 days ago * Laboratory reports are significant for hypokalemia, slight hyponatremia at 133, patient have some abnormal LFTs with a mild elevation of ALT and AST. CBC is remarkable for marked leukocytosis at 26.7. * Ordered blood cultures and lactic acid and started antibiotic treatment empirically for HEENT infection as patient meets SIRS criteria due to tachycardia cardia and leukocytosis. * Patient's denying breathing issues, maintiningairway well, nontoxic appearing. tanning consultant Reffered and contacted. Patient will be see tomorrow. * Lactic acid is within normal range * Continue monitor. * Ordered Parker and EBV * CT andomen and pelvis ordered Diabetes * Ordered BS check Q 6hrs with low dose sliding scale. * Hypoglycemia precautions Hyperlipidemia Hypertension * Chronic controlled * Resume Home medications Code status: Full code DVT Prophylaxis: NPO: - Advance Directives Does patient have a Living Will: No Does patient have a Durable POA for Healthcare: No - Code Status/Comfort Care Code Status Assessed: Yes (Full code) Code Status: Full Code Physician Review: Patient Assessed, Agree with Above Assessment and Plan Critical Care: No Time Spent Managing Pts Care (In Minutes): 65 (Minutes)
[2023-09-06] MEDS: METHYLPREDNISOLONE 40 MG INJ IV SCH (18:00)
[2023-09-06] MEDS: D5 0.45 NS 1,000 ML IV SCH ×2 (18:00→20:35)
[2023-09-06 18:03] LABS: Absolute Lymphocytes (CBC) 0.9 K/uL (0.7-4.9); Lymphocytes % 3.9 % (15.3-44.8); MCV 84.2 fL (80-100); MPV 9.3 fL (7.6-11.3); Platelets 219 thou/uL (152-406); RBC Red Blood Cell Count 4.04 M/uL (4.33-5.43)
--- NOTE | 2023-09-06 18:26 | RAD REPORT ---
EXAM DESCRIPTION: CT - Abdomen Pelvis Wo Contrast - 09/06/2023 6:12 pm CLINICAL HISTORY: Abdominal pain. Eval. Liver spleen COMPARISON: Abdomen Pelvis Wo Contrast dated 04/13/2019; Soft Tissue Neck W/Contr dated 09/06/2023; Abdomen Pelvis Wo Contrast dated 02/17/2019 TECHNIQUE: CT imaging of the abdomen and pelvis was performed without contrast. Solid organ, bowel a nd vascular assessment is limited due to lack of IV and oral contrast. All CT scans are performed using dose optimization technique as appropriate and may include automated exposure control or mA/KV adjustment according to patient size. FINDINGS: The lower lung barragan are clear.Postsurgical changes about the stomach. The liver, spleen, pancreas, adrenal glands and kidneys are within normal limits for a limited non-co ntrast examination. No bowel obstruction, free air, free fluid or abscess. Mild mesenteric edema noted. The appendix is n ormal. Moderate multilevel lumbar degenerative changes. IMPRESSION: No acute intra-abdominal or pelvic findings. Mild nonspecific mesenteric edema noted. This is new since 2019 comparative study. This may be a clin ically insignificant finding, however consideration may be given to follow-up CT imaging in 6 months for monitoring purposes. A limited non-contrast examination was performed as detailed.
[2023-09-06 20:14] VITALS: BMI 38.4
[2023-09-06] MEDS: INSULIN REGULAR (HUMAN) 100 UNIT/ML SQ SCH (21:00)
[2023-09-06] MEDS: carvediloL 25 MG TAB PO SCH (21:00)
[2023-09-07] MEDS: METHYLPREDNISOLONE 40 MG INJ IV SCH ×3 (00:42→12:13)
[2023-09-07] MEDS: AMPICILLIN/SULBACT 3 GM in NA CHLORIDE 0.9% 100 ML IVPB SCH ×2 (00:42→08:15)
[2023-09-07 03:36] LABS: Absolute Lymphocytes (CBC) 0.6 K/uL (0.7-4.9); Hematocrit 32.8 % (39.6-49.0); Lymphocytes % 2.5 % (15.3-44.8); MCV 84.3 fL (80-100); MPV 9.9 fL (7.6-11.3); Platelets 214 thou/uL (152-406); RBC Red Blood Cell Count 3.89 M/uL (4.33-5.43)
[2023-09-07 04:08] LABS: Bilirubin Direct 0.8 mg/dL (0-0.2); Bilirubin Indirect, Calculated 0.6 mg/dL (0.2-0.8); Bilirubin Total 1.4 mg/dL (0.2-1.0); Magnesium 2.3 mg/dL (1.6-2.4); Phosphorus 2.7 mg/dL (2.5-4.9); Potassium 3.5 mEq/L (3.5-5.1); Protein, Total 6.8 g/dL (6.4-8.2)
[2023-09-07 04:30] LABS: Hepatitis B Core IgM Nonreactive (Nonreactive); Hepatitis B surface AG Interp. Nonreactive (Nonreactive); Hepatitis C Virus Ab Nonreactive (Nonreactive)
[2023-09-07] MEDS: INSULIN REGULAR (HUMAN) 100 UNIT/ML SQ SCH ×2 (07:30→12:13)
--- NOTE | 2023-09-07 07:35 | P.PN ---
Date of Service: 09/07/23 Subjective: Feeling better today no acute events overnight ROS: 10 point ROS as noted above, otherwise negative Physical Exam: GEN: Alert, oriented, NAD HEENT: Normal conjunctiva, induration on the right neck CV: Regular rate and rhythm, no edema Pulm: Nonlabored respirations on room air ABD: Soft, nontender, nondistended MSK: No joint tenderness Integumentary: No rashes Neuro: Normal speech, normal affect vitals reviewed Problem List: Sepsis likely secondary to soft tissue infection right neck, lymphadenopathy Elevated LFTs Mild nonspecific mesenteric edema NIDDM2 Hyperlipidemia Hypertension Sepsis likely secondary to soft tissue infection right neck, lymphadenopathy CT soft tissue neck (09/06): Deep right neck inflammatory changes are present detailed with several enlarged lymph nodes. moderate narrowing of the right internal jugular vein. Inflammatory changes extend from the right supraclavicular fossa to the right parapharyngeal fat triangle. Moderate abnormal tissue is seen along the base of the tongue on the right extending inferiorly to involve the supraglottic larynx CT abdomen (09/06): No acute intra-abdominal or pelvic findings. blood cx: pending failed outpatient treatment with amoxicillin ~4-5 days ago continue empiric unasyn (09/07-) ENT consulted Elevated LFTs LFTs elevated on admission; improving continue to monitor Mild nonspecific mesenteric edema CT abdomen (09/06): Mild nonspecific mesenteric edema noted new since 2019 study. consider follow up CT in 6 months for further monitoring NIDDM2 ACHS Accu-Chek, sliding scale insulin. Hyperlipidemia Hypertension confirm home medications, restart as appropriate VTE: Lovenox Code: Full Dispo: Home Pending further workup, improvement
[2023-09-07] MEDS ORDERED: KCL 20 MEQ/100 mL IVPB 20 MEQ/100 ML BAG IV SCH (08:00)
[2023-09-07] MEDS: D5 0.45 NS 1,000 ML IV SCH ×2 (08:14→11:08)
[2023-09-07] MEDS: carvediloL 25 MG TAB PO SCH (08:17)
[2023-09-07] MEDS ORDERED: VALSARTAN 160 MG TAB PO SCH (09:00)
[2023-09-07] MEDS ORDERED: ASPIRIN EC 81 MG TAB PO SCH (09:00)
[2023-09-07] MEDS ORDERED: hydroCHLOROthiazide 12.5 MG CAP PO SCH (09:00)
[2023-09-07] MEDS ORDERED: HOME MED 1 EA UNK (Irbesartan/Hydrochlorothiazide [Avalide 300-12.5 Mg Tablet] 1 EACH Tabl PO SCH (09:00)
[2023-09-07] MEDS ORDERED: VITAMIN D 1000 UNIT TAB PO SCH (09:00)
[2023-09-07] MEDS ORDERED: ENOXAPARIN 40 MG/0.4 ML SQ SCH (09:00)
[2023-09-07] MEDS ORDERED: ATORVASTATIN 20 MG TAB PO SCH (09:00)
[2023-09-07 12:30] VITALS: BP 138/82; TEMP 98
[2023-09-07] MEDS ORDERED: INSULIN REGULAR (HUMAN) 100 UNIT/ML SQ SCH (12:42)
--- NOTE | 2023-09-07 14:09 | P.DS ---
Admission Date: 09/06/23 Discharge Date: 09/07/23 Primary Care Provider: John Moore Consultations: ENT - Dr. 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 Patient presented to the emergency room with complaints of fatigue, loss of hunger. Patient reports that he was not feeling good for last 7 days he was diagnosed with sinusitis almost a week ago and was started on amoxicillin. It did help initially but he got worse again today morning he was not feeling good and not able to eat or drink due to thick secretions in the throat. Patient complains of right neck pain. patient denies nausea or vomiting, abdominal pain, he had review diarrhea. Patient denies chest pain, palpitation, shortness of breath, chest pressure. ED course Vital signs blood pressure 124/77, pulse 92, respirations 16, temperature 99, pulse ox 95% on room air. Laboratory reports are significant for hypokalemia, slight hyponatremia at 133, patient have some abnormal LFTs with a mild elevation of ALT and AST. CBC is remarkable for marked leukocytosis at 26.7. Ordered blood cultures and lactic acid and started antibiotic treatment empirically for HEENT infection as patient meets SIRS criteria due to tachycardia cardia and leukocytosis. Patient's denying his airway well, nontoxic appearing. Lactic acid is within normal range CT scan of neck shows soft tissue inflammation without associated lymphadenopathy. Sepsis, soft tissue infection Admitting the patient with a diagnosis of sepsis, soft tissue infection of neck with lymphadenopathy. Hospital Course: Problem List: Sepsis likely secondary to right oropharyngeal infection Elevated LFTs Mild nonspecific mesenteric edema NIDDM2 Hyperlipidemia Hypertension Patient presented with right neck pain. ENT was consulted. He underwent bedside scope with Dr. De La O and felt this seemed more consistent with a right oropharyngeal infection but difficult to get a great view secondary to sensitive gag reflex / large tongue. ENT recommended 10 days of augmentin on discharge and to follow up as outpatient in ~4 weeks. Patient was feeling better, wanting to go home and deemed stable for discharge. Patient is to complete 10 day course of augmentin on discharge. LFTS were noted to be elevated on admission and mproved with time. Recommend repeat blood work later this week for further monitoring of WBC, LFTs. AST/ALT on admission: 184/267 respectively AST/ALT on discharge: 138/226 respectively Medications: Augmentin x10 days prednisone x10 days - 1 tablet a day for 4 days, then 1/2 tablet a day for [address] abdomen (09/06): Mild nonspecific mesenteric edema noted new since 2019 study. Recommend follow up with PCP for further discussion and to consider follow up CT in 6 months for further monitoring Follow up: PCP 3-5 days ENT in ~4 weeks Physical Exam: GEN: Alert, oriented, NAD HEENT: Normal conjunctiva, induration on the right neck CV: Regular rate and rhythm, no edema Pulm: Nonlabored respirations on room air ABD: Soft, nontender, nondistended MSK: No joint tenderness Integumentary: No rashes Neuro: Normal speech, normal affect Vital Signs/Physical Exam: Temp Pulse Resp BP Pulse Ox 98 F 80 17 138/82 93 09/07/23 12:00 09/07/23 12:00 09/07/23 12:00 09/07/23 12:00 09/07/23 12:00 Laboratory Data at Discharge: WBC 24.20 thou/uL (4.3-10.9) H 09/07/23 02:56 Hgb 11.1 g/dL (13.6-17.9) L 09/07/23 02:56 Hct 32.8 % (39.6-49.0) L 09/07/23 02:56 Plt Count 214 thou/uL (152-406) 09/07/23 02:56 Sodium 137 mEq/L (136-145) D 09/07/23 02:56 Potassium 3.5 mEq/L (3.5-5.1) 09/07/23 02:56 BUN 14 mg/dL (7-18) 09/07/23 02:56 Creatinine 0.83 mg/dL (0.70-1.30) 09/07/23 02:56 Glucose 155 mg/dL (74-106) H 09/07/23 02:56 Phosphorus 2.7 mg/dL (2.5-4.9) 09/07/23 02:56 Magnesium 2.3 mg/dL (1.6-2.4) 09/07/23 02:56 Total Bilirubin 1.4 mg/dL (0.2-1.0) H 09/07/23 02:56 AST 138 U/L (15-37) H 09/07/23 02:56 ALT 226 U/L (16-61) H 09/07/23 02:56 Alkaline Phosphatase 399 U/L (45-117) H D 09/07/23 02:56 Triglycerides 169 mg/dL (<150) H 09/07/23 02:56 Cholesterol 123 mg/dL (<200) 09/07/23 02:56 HDL Cholesterol 18 mg/dL (40-60) L 09/07/23 02:56 Cholesterol/HDL Ratio 6.83 09/07/23 02:56 Home Medications: Aspirin [Adult Low Dose Aspirin EC] 81 mg PO DAILY 02/17/19 Atorvastatin Calcium 20 mg PO DAILY 02/17/19 Cholecalciferol (Vitamin D3) [Vitamin D 1000 Iu Tab*] 2,000 unit PO DAILY 02/17/19 Irbesartan/Hydrochlorothiazide [Avalide 300-12.5 mg Tablet] 1 each PO DAILY 02/17/19 Omeprazole [Prilosec] 20 mg PO BID 02/17/19 Saxagliptin HCl/Metformin HCl [Kombiglyze Xr 5-1,000 mg Tab] 1 tab PO DAILY 02/17/19 carvediloL [Coreg*] 25 mg PO BID 02/17/19 Amox/Clavulanate [Augmentin 875-125 Tab*] 875 mg PO BID 10 Days #20 tab 09/07/23 predniSONE [Prednisone*] 20 mg PO DAILY 10 Days #7 tab 09/07/23 New Medications: Amox/Clavulanate [Augmentin 875-125 Tab*] 875 mg PO BID 10 Days #20 tab predniSONE [Prednisone*] 20 mg PO DAILY 10 Days #7 tab Physician Discharge Instructions: Patient presented with right neck pain. ENT was consulted. He underwent bedside scope with Dr. De La O and felt this seemed more consistent with a right oropharyngeal infection but difficult to get a great view secondary to sensitive gag reflex / large tongue. ENT recommended 10 days of augmentin on discharge and to follow up as outpatient in ~4 weeks. Patient was feeling better, wanting to go home and deemed stable for discharge. Patient is to complete 10 day course of augmentin on discharge. LFTS were noted to be elevated on admission and mproved with time. Recommend repeat blood work later this week for further monitoring of WBC, LFTs. AST/ALT on admission: 184/267 respectively AST/ALT on discharge: 138/226 respectively Medications: Augmentin x10 days prednisone x10 days - 1 tablet a day for 4 days, then 1/2 tablet a day for [address] abdomen (09/06): Mild nonspecific mesenteric edema noted new since 2019 study. Recommend follow up with PCP for further discussion and to consider follow up CT in 6 months for further monitoring Follow up: PCP 3-5 days ENT in ~4 weeks Followup: Scarlet Soliz MD [Primary Care Provider] - Time spent managing pt's care (in minutes): 45
[2023-09-07] MEDS ORDERED: AMPICILLIN/SULBACT 3 GM in NA CHLORIDE 0.9% 100 ML IVPB SCH (15:00)
[2023-09-07 15:09] VITALS: O2SAT 98
--- NOTE | 2023-09-07 19:04 | CON ---
Date of Consultation: 09/07/2023 Chief Complaint: Right-sided sore throat and right-sided neck pain. 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 Patient was diagnosed with a sinus infection 3 days prior and was placed on amoxicillin but he noticed increased difficulty with swallowing and presented to the emergency room for further evaluation and management. He was then ad mitted to the hospital under Internal Medicine for possible sepsis, soft tissue infection of right ne ck, lymphadenopathy, elevated liver enzymes. I was then consulted for further evaluation and managem ent. Upon arrival to bedside, patient is awake, alert, and oriented, with improved swallowing and im proved right-sided neck and throat pain since admission. He was started on Unasyn IV as well as IV s teroids and has improved overnight. He reports improved swallowing with ice chips, but has been kept n.p.o. for possible I and D of neck abscess or throat abscess. No other ENT complaints today. Past Medical History: Hypertension, hyperlipidemia, high cholesterol, gastroesophageal reflux diseas e, diabetes mellitus. Past Surgical History: Ankle surgery. Family History: Unknown with father. Mother has a history of hypertension and stroke. Social History: Denies alcohol, tobacco, illicit drugs. Medications: Includes aspirin, atorvastatin, cholecalciferol, irbesartan/hydrochlorothiazide, omepra zole, saxagliptin, carvedilol, amoxicillin/clavulanate. Allergies: TO BACTRIM. Review of Systems: General: Positive for fatigue with improved chills and weakness. Eyes: Negative for drainage, blurry or double vision. Ears: Negative for otorrhea, hearing loss, tinnitus, or otalgia. Nose: Positive for postnasal drainage, nasal congestion. Throat: Positive for right-sided throat pain and odynophagia/dysphagia, although improved from yeste rday evening. Neck: Positive for right neck swelling and pain, improved from yesterday evening. Physical Examination: Vital Signs: Stable. General: He is awake, alert, and oriented x3, and cooperative. Head: Atraumatic, normocephalic. Eyes: PERRLA/EOMI. Ears: Deferred. Nose: Moist mucous membranes. Midline septum with evidence of mucoid secretions. No exudate or ble eding. Throat: Large base of tongue and right oropharyngeal erythema. No edema. No evidence of faye absc ess. Neck: Redundant soft tissue with evidence of right-sided level 2 lymphadenopathy. No tenderness to palpation. Trachea is midline and no evidence of airway obstruction. Flexible nasopharyngolaryngoscopy was performed after obtaining consent. Patient was placed into a s niffing position and a flexible nasopharyngoscope was placed into the left nasal cavity along the alexx or of the nose and advanced to the level of the larynx. The patient had mild erythema and edema invo lving the right arytenoid and aryepiglottic fold extending into the right hypopharynx. Patient had b lue boggy mucosa to suggest inhalant allergies. I do not see any detection of subglottic edema or ai rway obstruction. Airway is patent. Vocal cords are mobile. The scope was advanced to the base of tongue and vallecula. I did not detect any discrete mucosal lesions or ulcerations to suggest carcin ivy. The scope was withdrawn to the nasopharynx in which eustachian orifices were intact and there w as no evidence of adenoid tissue or obstruction. The scope was completely withdrawn. Patient tolera jade it well. CT scan of the soft tissue neck demonstrates approximately a 2.0 cm lymph node involving level 2 neck located on the right and inflammation extending to the right parapharyngeal fat pad from the right s upraclavicular fossa, but no evidence of abscess seen. Patient also has right-sided base of tongue i nflammation which with direct visualization with my scope correlates with the radiological findings, but again no evidence of discrete lesions to warrant a biopsy. Laboratory Data: The patient was admitted with WBC count of 26.7, which has decreased to 24.20 today . The patient has neutrophil shift which suggests acute infection. Diagnoses: 1.Suspected right oropharyngeal infection, possibly tonsillitis and pharyngitis. 2.Acute cervical lymphadenitis. Recommendations: Patient be discharged home after obtaining a decent dose of IV antibiotics and ster oids and Dr. Qureshi will discharge him home on oral antibiotics and steroids and then he will follow u p in my office in 4 weeks for repeat scope and further recommendation. Thanks for this interesting consultation. KD/MODL Voice ID: [id number] Report ID: [id number]
== END 2023-09-07 15:15 | disposition home or self-care (01) | DRG 872 ==
LOC: ER 10:26 → ERHOLD 17:02 → 2ND 19:36
PROVIDERS: ADMIT Hospitalist; ATTEND Hospitalist
PROC: 0CJS8ZZ Inspection of Larynx, Via Natural or Artificial Opening Endoscopic (ICD-10-PCS; principal; 2023-09-07)
DX: A41.9 Sepsis, unspecified organism (principal); E87.1 Hypo-osmolality and hyponatremia; J02.9 Acute pharyngitis, unspecified; I10 Essential (primary) hypertension; E11.9 Type 2 diabetes mellitus without complications; E87.6 Hypokalemia; L04.0 Acute lymphadenitis of face, head and neck; K21.9 Gastro-esophageal reflux disease without esophagitis; E78.5 Hyperlipidemia, unspecified; R74.01 Elevation of levels of liver transaminase levels; Z88.1 Allergy status to other antibiotic agents; Z79.52 Long term (current) use of systemic steroids; Z79.82 Long term (current) use of aspirin; Z79.899 Other long term (current) drug therapy
CPT/HCPCS: 36415; 70491; 74176; 80048; 80053; 80061; 80074; 80076; 81001; 82947; 83605; 83735; 84100; 84443; 85025; 86308; 86664; 86665; 87040; 96361; 96365; 96366; 99285; J0295; J1650; J1815; J2920; J3480; J7030; J7799; Q9967